=== PATIENT | female | born 1945 | race Asian ===

== ENCOUNTER 2017-10-19 18:41 | Inpatient (IN) | END 2017-10-30 18:25 | disposition home or self-care (01) | DRG 264 ==

== ENCOUNTER 2018-01-21 08:34 | Observation (INO) | END 2018-01-24 21:00 | disposition home or self-care (01) ==

== ENCOUNTER 2018-05-14 13:55 | Emergency (ER) | END 2018-05-15 04:27 | disposition short-term general hospital (02) ==

== ENCOUNTER 2019-02-15 15:29 | Inpatient (IN) | payer BC, OTHER ==
[~2019-02-15] VITALS: Ht 147.3 cm; Wt 51.1 kg
[~2019-02-15 15:29] MED LIST: ALLO300T2 PO; AMLO-147 PO; ATOR40TA68 PO; CHOL200056 PO; CLOP75TA19 PO; LEVO500T10 PO; NOVO7030 SC; OMEG1CAP2 PO; ONDA4TAB13 PO; PANT40TA4 PO; VALS320T2 PO
[2019-02-15] MEDS ORDERED: SOD CHLORIDE 0.9% 500 ML IV ONE (18:00)
[2019-02-15] MEDS ORDERED: NOVO7030 SC (18:02)
[2019-02-15] MEDS ORDERED: ALLO300T2 PO (18:03)
[2019-02-15] MEDS ORDERED: AMLO-147 PO (18:04)
[2019-02-15] MEDS ORDERED: CLOP75TA19 PO (18:05)
[2019-02-15] MEDS ORDERED: VALS320T2 PO (18:05)
[2019-02-15] MEDS ORDERED: ATOR40TA68 PO (18:06)
[2019-02-15] MEDS ORDERED: OMEG1CAP2 PO (18:06)
[2019-02-15] MEDS ORDERED: CHOL200056 PO (18:07)
[2019-02-15] MEDS ORDERED: ONDA4TAB13 PO (18:07)
[2019-02-15] MEDS ORDERED: CLON-379 PO (18:08)
[2019-02-15] MEDS ORDERED: ONDANSETRON 4 MG INJ IV PRN (20:30)
[2019-02-15] MEDS ORDERED: DOCUSATE SODIUM 100 MG CAP PO PRN (20:30)
[2019-02-15] MEDS ORDERED: ACETAMINOPHEN 325 MG TAB PO PRN (20:30)
[2019-02-15] MEDS ORDERED: NACL 0.9% 3 ML SYG IV SCH (20:30)
[2019-02-15] MEDS ORDERED: BISACODYL (EC) 5 MG TAB PO PRN (20:30)
--- NOTE | 2019-02-15 20:30 | HP ---
Date/Time of Note Date/Time of Note DATE: 02/15/19 TIME: 20:30 Assessment/Plan VTE Prophylaxis Pharmacological prophylaxis: heparin Lines/Catheters IV C[facility]ter Type [facility]from [facility] Saline Lock Assessment/Plan Hospital Course This is a 73-year-old female being admitted to the telemetry floor for: 1 generalized tremors/rigors: Etiology is unclear at the current time. Reports similar episodes twice before for which she was treated with antibiotics. At the current time patient is afebrile. Her lactate is within normal values. Nonetheless there is concern for possible underlying infection. She does report a cough and diarrhea. At the current time will obtain blood cultures and stool cultures. We will start her on broad-spectrum antibiotics for suspected underlying infection. We will also obtain an echocardiogram and assess for possible underlying vegetations. Chest x-ray does not show any consolidation or infiltrates. consider EEG and neuro consultation. 2. Near syncope: Patient denies any loss of consciousness, she does report generalized weakness along with the tremors and the shakes. Will check an echocardiogram as well as a carotid Doppler ultrasound. 3. End-stage renal disease: Patient on hemodialysis Wednesday. Will resume patient's home medications. Will consult nephrology Dr. Cardona. Avoid nephrotoxic agents. 4. Diabetes mellitus: Check hemoglobin A1c, insulin sliding scale, will need to confirm patient's home insulin dosage. 5. Hypertension: We will resume patient's home blood pressure medications 6. Hyperlipidemia: We will continue statin will check lipid panel 7. Possible CAD: Continue statin, Plavix 8. DVT GI prophylaxis: Heparin subcu, no GI prophylaxis indicated Further treatment strategy will be implemented as per the clinical course Result Diagram: 02/15/19 1609 02/15/19 1609 Results 24hrs Laboratory Tests Test 02/15/19 16:09 02/15/19 16:14 White Blood Count 12.1 #H Red Blood Count 3.76 L Hemoglobin 10.9 L Hematocrit 32.9 L Mean Corpuscular Volume 87.5 Mean Corpuscular Hemoglobin 29.0 Mean Corpuscular Hemoglobin Concent 33.1 Red Cell Distribution Width 16.9 #H Platelet Count 274 Mean Platelet Volume 10.3 Immature Granulocytes % 0.400 Neutrophils % 81.9 H Lymphocytes % 11.5 L Monocytes % 4.5 Eosinophils % 1.4 Basophils % 0.3 Nucleated Red Blood Cells % 0.0 Immature Granulocytes # 0.050 H Neutrophils # 9.9 H Lymphocytes # 1.4 Monocytes # 0.5 Eosinophils # 0.2 Basophils # 0.0 Nucleated Red Blood Cells # 0.0 Prothrombin Time 11.6 L Prothrombin Time Ratio 0.9 INR International Normalized Ratio 0.84 Sodium Level 135 Potassium Level 4.1 Chloride Level 94 L Carbon Dioxide Level 26 Anion Gap 15 H Blood Urea Nitrogen 40 H Creatinine 3.54 H Est Glomerular Filtrat Rate mL/min Glucose Level 236 H Calcium Level 9.1 Troponin I < 0.012 Bedside Glucose 253 H HPI/ROS Admit Date/Time Admit Date/Time Hx of Present Illness Chief complaint: Tremors, chills, weakness times 2 days This is a 73-year-old female with a past medical history of hypertension, diabetes, end-stage renal disease on Wednesday//Wednesday who presented to the emergency department with symptoms of near syncope. Patient reports that she went to dialysis yesterday. She states that after she went home she felt lightheaded and had generalized weakness and she also started noticing tremors. She states that she has felt the chills but denies any fevers. She had a similar episode occurred to her twice in the past and both times she was treated with antibiotics. She does have an occasional cough. She otherwise denies any sick contacts. She does report that occasionally she has some diarrhea for which she took Imodium for. Allergies: Penicillin, aspirin Medications: See Dec Const: As per HPI Eyes : No pain discharge or redness or change in visual acuity ENT: No pain, sore throat, congestion, congestion, dysphagia or discharge Respiratory: As per HPI Cardiovascular: No chest pain, palpitation, PND, or edema GI : no change in appetite, abdominal pain, nausea, vomiting, diarrhea, constipation, or change in the color his stool Genitourinary: No dysuria, hematuria, flank pain , discharge or CVA tenderness Musculoskeletal: No joint pain, back pain, neck pain, restricted range of motion in neck or joints Skin: No rash, bruising or hives Neuro: As per HPI Endocrine: No polyuria, polydipsia, temperature intolerance Psych: No hallucination, depression, anxiety or suicidal ideation PMH/Family/Social Past Medical History End-stage renal disease on hemodialysis Wednesday, hypertension, diabetes, hyperlipidemia Coded Allergies: Penicillins (Unverified Allergy, Unknown, 02/15/19) aspirin (Unverified Allergy, Unknown, 02/15/19) Past Surgical History Left upper extremity AV fistula, hernia surgery Past Surgical Hx: other Family History Significant Family History: no pertinent family hx Social History Alcohol Use: none Smoking Status: Never smoker Drug Use: none Exam/Review of Systems Vital Signs Vitals Vital Signs Date Temp Pulse Resp B/P (MAP) Pulse Ox O2 O2 Flow FiO2 Time Delivery Rate 02/15/19 73 18 160/88 100 Nasal 2.0 18:00 (112) Cannula 02/15/19 98.1 15:38 Exam Exam General: Patient currently lying in bed she does not appear to be in any acute distress, she does appear to have visible generalized tremors/shakes when she is talking, she reports chills. HEENT: Atraumatic, normocephalic. The pupils are equal, round and reactive. Extraocular motor are intact Neck: Supple with full range of motion. No rigidity or meningismus Chest: Nontender Lungs: Clear to auscultation bilaterally no crackles rales or wheezing, dry cough Heart: Normal S1-S2, Regular rhythm and rate. Abdomen: Soft , nontender, nondistended , bowel sounds are present. No guarding no rebound tenderness , No masses or organomegaly. No costovertebral temporal angle mass Extremities: Normal to inspection, no edema no cyanosis Neurologic: Normal mental status, speech normal, cranial nerves II through XII are intact, motor and sensory are intact, generalized tremors/shakes Additional Comments PROCEDURE: XR Chest. CLINICAL INDICATION: Syncope TECHNIQUE: Single portable view of the chest was obtained COMPARISON: No priors for comparison FINDINGS: The trachea is midline. The cardiac silhouette is a large and pulmonary vascularity are within normal limits. There is atherosclerotic calcification of the aortic knob. There are bilateral chronic lung changes. The lungs are clear. The costophrenic angles are sharp. IMPRESSION: 1. Cardiomegaly and atherosclerotic disease. 2. Bilateral chronic lung changes. No evidence of acute cardiopulmonary disease. RPTAT: AAPP Jasony Lue, Physician Date Time Electronically viewed and signed by Manuel Ramirez, Physician on 02/15/2019 16:38 JL/ CC: ELSY SOUSA MD [id number] MACY COSBY Feb 15, 2019 20:30
--- NOTE | 2019-02-15 20:37 | ERD ---
ER Documentation Chief Complaint Chief Complaint bib ra from medical office for feeling weak, and near syncope HPI This is a 73-year-old female with a past medical history of hypertension, diabetes, end-stage renal disease status post left upper extremity fistula on dialysis Wednesday//Wednesday, last completed dialysis yesterday, who is now presenting with near syncopal symptoms. The patient reports lightheadedness, generalized weakness, tremulousness and feeling generally unwell since her dialysis session yesterday. The patient does not endorse any other alleviating or exacerbating factors. The patient denies feeling sick recently. The patient denies fever or chills. The patient has had no headache or vision changes. The patient does not endorse neck or back pain. The patient has had no chest pain or trouble breathing. The patient denies nausea or vomiting. The patient reports chronic unchanged generalized abdominal pain. The patient denies changes to bowel movements or urination. The patient has had no focal deficits. The patient has had no weakness or numbness or tingling to the face or extremities. ROS All systems reviewed and are negative except as per history of present illness. Medications Home Meds Reported Medications Clonidine Hcl* (Clonidine Hcl*) 0.1 Mg Tab, 0.1 MG PO BID, TAB 02/15/19 Ondansetron Hcl* (Zofran*) 4 Mg Tab, 4 MG PO Q6H PRN for NAUSEA AND OR VOMITING, TAB 02/15/19 Cholecalciferol (Vitamin D3) (Vitamin D-3) 2,000 Unit Tablet, 2000 UNIT PO DAILY, TAB 02/15/19 [place]-3 Acid Ethyl Esters (Lovaza) 1 Gm Capsule, 2 GM PO BID, CAP 02/15/19 Atorvastatin* (Atorvastatin*) 40 Mg Tablet, 40 MG PO QHS, #30 TAB 02/15/19 Valsartan* (Diovan*) 320 Mg Tablet, 320 MG PO DAILY, TAB 02/15/19 Clopidogrel Bisulfate* (Clopidogrel Bisulfate*) 75 Mg Tablet, 75 MG PO DAILY, #30 TAB 02/15/19 Amlodipine Besylate* (Amlodipine Besylate*) 10 Mg Tablet, 10 MG PO DAILY, #30 TAB 02/15/19 Allopurinol* (Allopurinol*) 300 Mg Tablet, 300 MG PO DAILY, TAB 02/15/19 Insulin Isophan/Regular (Humulin 70/30) 100 Units/Ml Susp, 1 UNIT SC AC BREAKFAST DINNER, EA 40 UNITS-AM, 20 UNITS-QHS 02/15/19 Discontinued Reported Medications Pantoprazole* (Pantoprazole*) 40 Mg Tablet.dr, 40 MG PO AC BREAKFAST, TAB 05/14/18 Atorvastatin* (Atorvastatin*) 40 Mg Tablet, 40 MG PO QHS, #30 TAB 05/14/18 Clopidogrel Bisulfate* (Clopidogrel Bisulfate*) 75 Mg Tablet, 75 MG PO DAILY, #30 TAB 05/14/18 Allopurinol* (Allopurinol*) 300 Mg Tablet, 300 MG PO DAILY, TAB 05/14/18 Valsartan* (Diovan*) 320 Mg Tablet, 320 MG PO DAILY, TAB 05/14/18 Levofloxacin* (Levofloxacin*) 500 Mg Tablet, 500 MG PO DAILY, TAB FOR 10 DAYS, START DATE 05/12/18 05/14/18 [place]-3 Acid Ethyl Esters (Lovaza) 1 Gm Capsule, 2 GM PO BID, CAP 05/14/18 Cholecalciferol (Vitamin D3) (Vitamin D-3) 2,000 Unit Tablet, 2000 UNIT PO DAILY, TAB 05/14/18 Insulin Isophan/Regular (Humulin 70/30) 100 Units/Ml Susp, 40 UNIT SC AC BREAKFAST BEDTIME, EA 05/14/18 Ondansetron Hcl* (Zofran*) 4 Mg Tab, 4 MG PO Q12H PRN for NAUSEA AND OR VOMITING, TAB 05/14/18 Amlodipine Besylate* (Amlodipine Besylate*) 10 Mg Tablet, 10 MG PO DAILY, #30 TAB 05/14/18 Allergies Allergies: Coded Allergies: Penicillins (Unverified Allergy, Unknown, 02/15/19) aspirin (Unverified Allergy, Unknown, 02/15/19) PMhx/Soc History of Surgery: Yes (total hysteractomy, c section x2, hernia repainr) Anesthesia Reaction: No Hx Neurological Disorder: No Hx Respiratory Disorders: Yes (SOB) Hx Cardiac Disorders: No Hx Psychiatric Problems: No Hx Miscellaneous Medical Probl: Yes (ESRD on hemodialysis, hypertension, diabetes) Hx Alcohol Use: No Hx Substance Use: No Hx Tobacco Use: No Smoking Status: Never smoker Physical Exam Vitals Vital Signs Date Temp Pulse Resp B/P (MAP) Pulse Ox O2 O2 Flow FiO2 Time Delivery Rate 02/15/19 73 18 160/88 100 Nasal 2.0 18:00 (112) Cannula 02/15/19 76 22 150/54 100 Nasal 3.0 17:00 (86) Cannula 02/15/19 75 19 161/101 100 Non 16:44 (121) Rebreather 02/15/19 98.1 80 19 156/65 98 15:38 (95) 02/15/19 98.1 89 19 150/69 98 Nasal 2.0 15:38 (96) Cannula Physical Exam Const: No apparent distress, well-developed, well-nourished Head: Normocephalic, Atraumatic Eyes: Normal Conjunctiva. Extraocular movements intact. Pupils equal, round and reactive to light ENT: Normal External Ears, Nose and Mouth. Neck: Full range of motion. No meningismus. Resp: Clear to auscultation bilaterally, No wheezes, rales or rhonchi Cardio: Regular rate and rhythm. No murmurs, rubs or gallops Abd: Soft, non tender, non distended. Normal bowel sounds Skin: No petechiae or rashes Back: No midline tenderness. No CVA tenderness Ext: No cyanosis, or edema. Left upper extremity AV fistula with palpable pulsatile thrill. Neur: Awake and alert, oriented 4. Cranial nerves intact. No facial droop. Normal strength, sensation and coordination. Bilateral essential tremor and occasional myoclonic jerking. Psych: Normal Mood and Affect Result Diagram: 02/15/19 1609 02/15/19 1609 Results 24 hrs Laboratory Tests Test 02/15/19 16:09 02/15/19 16:14 White Blood Count 12.1 10^3/ul Red Blood Count 3.76 10^6/ul Hemoglobin 10.9 g/dl Hematocrit 32.9 % Mean Corpuscular Volume 87.5 fl Mean Corpuscular Hemoglobin 29.0 pg Mean Corpuscular Hemoglobin Concent 33.1 g/dl Red Cell Distribution Width 16.9 % Platelet Count 274 10^3/UL Mean Platelet Volume 10.3 fl Immature Granulocytes % 0.400 % Neutrophils % 81.9 % Lymphocytes % 11.5 % Monocytes % 4.5 % Eosinophils % 1.4 % Basophils % 0.3 % Nucleated Red Blood Cells % 0.0 /100WBC Immature Granulocytes # 0.050 10^3/ul Neutrophils # 9.9 10^3/ul Lymphocytes # 1.4 10^3/ul Monocytes # 0.5 10^3/ul Eosinophils # 0.2 10^3/ul Basophils # 0.0 10^3/ul Nucleated Red Blood Cells # 0.0 10^3/ul Prothrombin Time 11.6 Sec Prothrombin Time Ratio 0.9 INR International Normalized Ratio 0.84 Sodium Level 135 mmol/L Potassium Level 4.1 mmol/L Chloride Level 94 mmol/L Carbon Dioxide Level 26 mmol/L Anion Gap 15 Blood Urea Nitrogen 40 mg/dl Creatinine 3.54 mg/dl Est Glomerular Filtrat Rate mL/min mL/min Glucose Level 236 mg/dl Calcium Level 9.1 mg/dl Troponin I < 0.012 ng/ml Bedside Glucose 253 mg/dL Current Medications Medications Dose Sig/Carmen Start Time Status Last (Trade) Ordered Route PRN Stop Time Admin Dose Reason Admin Sodium 500 ml @ Q1H ONCE 02/15/19 DC 02/15/19 Chloride 500 mls/hr IV 18:00 17:47 02/15/19 18:59 Procedures/MDM MDM The patient's presentation warrants further investigation. Previous medical records, if available, were reviewed. LABS The patient's laboratory testing was obtained and reviewed. No emergent treatment was required unless described below. CBC: Mild leukocytosis. Normocytic anemia, not emergent. Normal platelet count. Chemistry: Elevated BUN and creatinine in line with her known end-stage renal disease. No electrolyte emergencies. Hyperglycemia without DKA. Mildly elevated anion gap but no acidemia. Lactate: Pending Troponin: No E/o acute ischemia Urine: Patient unable to provide TFTs: Pending LFTs: Pending NH4: Pending EKG EKG read by me: Rate/Rhythm: Regular rate and rhythm at a rate of 73 bpm Intervals: Normal [place]: Normal Impression: No evidence of acute ischemia or arrhythmia IMAGING Imaging and Radiology interpretation reviewed. CXR FINDINGS: The trachea is midline. The cardiac silhouette is a large and pulmonary vascularity are within normal limits. There is atherosclerotic calcification of the aortic knob. There are bilateral chronic lung changes. The lungs are clear. The costophrenic angles are sharp. IMPRESSION: 1. Cardiomegaly and atherosclerotic disease. 2. Bilateral chronic lung changes. No evidence of acute cardiopulmonary disease. Electronically viewed and signed by Manuel Ramirez Physician on 02/15/2019 16:38 TREATMENT/DISPOSITION The patient presents with symptoms concerning for presyncope. The patient was evaluated fully. Multiple etiologies have been considered. The patient's vital signs are normal, but she does have a leukocytosis. She does not meet criteria for systemic inflammatory response syndrome, and I do not believe the patient is septic. That said, the patient reports that she has had these symptoms before and was treated with antibiotics. Given her history of end-stage renal disease requiring dialysis 3 times a week, bacteremia certainly a possibility. Blood cultures were sent off. I did not immediately initiate antibiotics in the emergency department, but this can be assessed further in the hospital. The patient's tremors could also be related to electrolyte abnormalities as patients with end-stage renal disease are prone to electrolyte abnormalities. I do not see any emergent electrolyte abnormalities today. Magnesium and phosphorus levels were sent off for further assessment. LFTs and ammonia was also sent off to evaluate for the possibility of a hepatic pathology. The patient is not clinically orthostatic. The patient is not dizzy. I have decreased suspicion for vertigo. The patient has no signs of emergent or symptomatic anemia. The patient does not have any emergent electrolyte or metabolic emergencies. I have decrease suspicion for a thyroid disorder, but thyroid function testing was ordered. The patient's EKG and troponin are reassuring. I have low suspicion for acute coronary syndrome. I do not see evidence of any emergent cardiac arrhythmia, which includes but is not limited to heart block, Brugada syndrome or WPW. The patient has no heart murmurs or rales. There is no evidence of cardiomegaly on exam or chest xray. I have low suspicion for hypertrophic cardiomyopathy. I do not see evidence of CHF. The patient does not endorse any chest or pleuritic pain. The history is negative for bleeding or clotting disorders. The patient has not been involved in any recent prolonged trips or surgeries or hospitalizations. The patient has no calf tenderness or swelling. I have decreased suspicion for PE as the etiology of symptoms. The patient does endorse tremulousness, but she has no focal deficits. The neurologic exam is reassuring. I have decreased suspicion for cerebral ischemia. There was no trauma or injury. There is no personal or family history of cerebral aneurysm. I have decreased suspicion for SAH or other ICH. I have low suspicion for temporal arteritis, cavernous venous thrombosis, subdural hematoma, epidural hematoma, meningitis. The patient was treated with 500 mL of normal saline. ADMISSION I discussed the case with Dr. Han, a physician who is part of her insurance organization. He agreed that the patient required admission for further assessment. They do not have a facility within 30 miles that we are able to transfer to, so he authorized admission here. At this time, I feel that the patient requires admission for further evaluation and management. The patient will be admitted to [Panel] in accordance with the patient's insurance. The patient was accepted by Dr. Sal at 8:06 PM on February 15, 2019. Disclaimer: Inadvertent spelling and grammatical errors are likely due to EHR/dictation software use and do not reflect on the overall quality of patient care. Note that the electronic time recorded on this note does not necessarily reflect the actual time of the patient encounter. Departure Diagnosis: Primary Impression: Near syncope Additional Impressions: Tremulousness Lightheadedness Leukocytosis Leukocytosis type: unspecified Qualified Codes: D72.829 - Elevated white blood cell count, unspecified Normocytic anemia End stage renal disease on dialysis Hyperglycemia Condition: Serious ELSY SOUSA MD Feb 15, 2019 20:24
[2019-02-15] MEDS ORDERED: ONDANSETRON 4 MG TAB PO PRN (21:30)
[2019-02-15] MEDS ORDERED: hydrALAzine 20 MG INJ IV PRN (21:30)
[2019-02-15 21:50] VITALS: PULSE 74
[2019-02-15 22:00] VITALS: BP 196/84; PULSE 77; RESP 18
[2019-02-15 22:13] VITALS: Ht 147.3 cm; Wt 51.1 kg
[2019-02-15] MEDS: HEPARIN 5,000 UNIT/1 ML VIAL SC SCH (22:26)
[2019-02-15] MEDS ORDERED: traZODone 50 MG TAB PO ONE (22:30)
[2019-02-15] MEDS ORDERED: DEXTROSE 50% 50 ML SYRINGE IV PRN ×2 (23:45)
[2019-02-15] MEDS ORDERED: GLUCOSE GEL 15 GRAM TUBE PO PRN ×2 (23:45)
[2019-02-15] MEDS ORDERED: GLUCAGON 1 MG INJ IM PRN (23:45)
[2019-02-15] MEDS ORDERED: GLUCOSE GEL 15 GRAM TUBE BUCCAL PRN (23:45)
[2019-02-15] MEDS: AMLODIPINE 10 MG TAB PO SCH (23:54)
[2019-02-16] VITALS (13 sets, daily range): BP systolic 146–164; BP diastolic 58–87; PULSE 63–95; RESP 17–19
[2019-02-16] MEDS: ACCUCHECK AT 2AM (Patients on SS coverage) XX SCH (02:00)
[2019-02-16] MEDS ORDERED: VANCOMYCIN IV PER PHARMACY XX SCH (05:00)
[2019-02-16] MEDS: CIPROFLOXACIN 400MG/D5W 200 ML IVPB SCH (05:57)
[2019-02-16] MEDS: HEPARIN 5,000 UNIT/1 ML VIAL SC SCH ×3 (06:09→21:47)
[2019-02-16] MEDS: metroNIDAZOLE 500 MG/NS (PMX) 100 ML IVPB SCH ×3 (06:58→21:45)
[2019-02-16] MEDS ORDERED: VANCOMYCIN 1 GM 250 ML IVPB ONE (07:00)
[2019-02-16] MEDS ORDERED: INSULIN ISOPHAN SC SCH (07:00)
[2019-02-16] MEDS ORDERED: INSULIN ASPART [NOVOLOG] 3 ML PEN SC SCH (08:00)
[2019-02-16] MEDS: AMLODIPINE 10 MG TAB PO SCH (08:17)
[2019-02-16] MEDS: CLOPIDOGREL 75 MG TAB PO SCH (08:18)
[2019-02-16] MEDS ORDERED: NON-FORMULARY/PATIENT OWN MED (Omega-3 Acid Ethyl Esters (Lovaza) 2 GM) PO SCH (09:00)
[2019-02-16] MEDS ORDERED: NON-FORMULARY/PATIENT OWN MED (Valsartan* (Diovan*) 320 MG) PO SCH (09:00)
[2019-02-16] MEDS: CHOLECALCIFEROL 2,000 UNIT CAP PO SCH ×2 (09:00→18:18)
[2019-02-16] MEDS: ALLOPURINOL 300 MG TAB PO SCH ×2 (09:00→18:18)
[2019-02-16] MEDS: FISH OIL 1,000 MG CAP PO SCH ×2 (09:00→21:43)
[2019-02-16] MEDS ORDERED: AMLODIPINE 10 MG TAB PO SCH (09:00)
[2019-02-16] MEDS ORDERED: NON-FORMULARY/PATIENT OWN MED (Cholecalciferol (Vitamin D3) (Vitamin D-3) 2,000 UNIT) PO SCH (09:00)
[2019-02-16] MEDS ORDERED: PIPER-TAZO 2.25 GM (PMX) 50 ML IVPB SCH (09:00)
[2019-02-16] MEDS: LOSARTAN 50 MG TAB PO SCH (12:13)
[2019-02-16] MEDS: INSULIN ASPART [NOVOLOG] 3 ML PEN SC SCH ×3 (12:22→21:00)
--- NOTE | 2019-02-16 13:16 | PN ---
Date/Time of Note Date/Time of Note DATE: 02/16/19 TIME: 13:00 Assessment/Plan VTE Prophylaxis Risk score (from Ns)>0 risk: 9 SCD applied (from Ns): Yes Pharmacological prophylaxis: heparin Lines/Catheters IV Catheter Type (from Nrsg): Saline Lock Urinary Cath still in place: No Assessment/Plan Assessment/Plan 1. Intermittent whole body jerking movement, not while she is asleep, likely psychogenic, try one dose Zyprexa, do EEG 2. Near syncope, no loss of consciousness 3. End-stage renal disease: HD on Wednesday, HD today. 4. Diabetes mellitus: Check hemoglobin A1c 8.4, insulin sliding scale 5. Hypertension, stable 6. Hyperlipidemia: We will continue statin 7. Possible CAD: Continue statin, Plavix 8. DVT GI prophylaxis: Heparin subcu, no GI prophylaxis indicated Result Diagram: 02/16/19 0534 02/16/19 0534 Results 24hrs Laboratory Tests Test 02/15/19 16:05 02/15/19 16:09 02/15/19 16:14 02/15/19 20:39 Total Bilirubin 0.4 Direct Bilirubin 0.00 Indirect Bilirubin 0.4 Aspartate Amino 28 Transf (AST/SGOT) Alanine 8 L Aminotransferase (AL T/SGPT) Alkaline Phosphatase 135 H Total Protein 8.1 Albumin 4.1 Thyroid Stimulating 1.830 Hormone (TSH) Free Thyroxine 1.95 White Blood Count 12.1 #H Red Blood Count 3.76 L Hemoglobin 10.9 L Hematocrit 32.9 L Mean Corpuscular 87.5 Volume Mean Corpuscular 29.0 Hemoglobin Mean Corpuscular 33.1 Hemoglobin Concent Red Cell 16.9 #H Distribution Width Platelet Count 274 Mean Platelet Volume 10.3 Immature 0.400 Granulocytes % Neutrophils % 81.9 H Lymphocytes % 11.5 L Monocytes % 4.5 Eosinophils % 1.4 Basophils % 0.3 Nucleated Red Blood 0.0 Cells % Immature 0.050 H Granulocytes # Neutrophils # 9.9 H Lymphocytes # 1.4 Monocytes # 0.5 Eosinophils # 0.2 Basophils # 0.0 Nucleated Red Blood 0.0 Cells # Prothrombin Time 11.6 L Prothrombin Time 0.9 Ratio INR International 0.84 Normalized Ratio Sodium Level 135 Potassium Level 4.1 Chloride Level 94 L Carbon Dioxide Level 26 Anion Gap 15 H Blood Urea Nitrogen 40 H Creatinine 3.54 H Est Glomerular Filtrat Rate mL/min Glucose Level 236 H Calcium Level 9.1 Phosphorus Level 4.0 Magnesium Level 2.4 Troponin I < 0.012 Bedside Glucose 253 H Ammonia < 9 L Test 02/15/19 20:42 02/15/19 22:50 02/15/19 23:16 02/16/19 05:34 POC Venous Lactate 0.8 Lactic Acid Level 0.7 Bedside Glucose 174 White Blood Count 10.0 Red Blood Count 3.45 L Hemoglobin 9.9 L Hematocrit 30.6 L Mean Corpuscular 88.7 Volume Mean Corpuscular 28.7 L Hemoglobin Mean Corpuscular 32.4 Hemoglobin Concent Red Cell 16.9 H Distribution Width Platelet Count 264 Mean Platelet Volume 10.7 H Immature 0.200 Granulocytes % Neutrophils % 72.6 Lymphocytes % 16.5 Monocytes % 7.1 Eosinophils % 3.0 Basophils % 0.6 Nucleated Red Blood 0.0 Cells % Immature 0.020 Granulocytes # Neutrophils # 7.2 Lymphocytes # 1.7 Monocytes # 0.7 Eosinophils # 0.3 Basophils # 0.1 Nucleated Red Blood 0.0 Cells # Sodium Level 138 Potassium Level 3.6 Chloride Level 100 Carbon Dioxide Level 28 Anion Gap 10 # Blood Urea Nitrogen 42 H Creatinine 4.08 H Est Glomerular Filtrat Rate mL/min Glucose Level 156 Hemoglobin A1c 8.4 H Calcium Level 8.6 Total Bilirubin 0.5 Direct Bilirubin 0.00 Indirect Bilirubin 0.5 Aspartate Amino 18 Transf (AST/SGOT) Alanine 18 Aminotransferase (AL T/SGPT) Alkaline Phosphatase 98 Total Protein 6.8 # Albumin 3.5 Globulin 3.30 H Albumin/Globulin 1.06 Ratio Test 02/16/19 07:33 02/16/19 12:17 Bedside Glucose 184 207 Subjective 24 Hr Interval Summary Free Text/Dictation intermittent jerking movement while awake Exam/Review of Systems Exam Vitals Vital Signs Date Temp Pulse Resp B/P (MAP) Pulse Ox O2 O2 Flow FiO2 Time Delivery Rate 02/16/19 63 12:15 02/16/19 97.7 19 146/65 100 Nasal 2.0 11:31 (92) Cannula Intake and Output 02/15/19 02/15/19 02/16/19 1515:00 23:00 07:00 IntakeIntake Total 200 ml BalanceBalance 200 ml Constitutional: alert, oriented, well developed Psych: no complaints, nl mood/affect Head: normocephalic, atraumatic Eyes: nl conjunctiva, EOMI, nl lids ENMT: nl external ears & nose, nl lips & teeth, nl nasal mucosa & septum Neck: supple, non-tender Respiratory: clear to auscultation, normal air movement; No congested cough, No crackles/rales, No diminished breath sounds, No interc ostal retraction, No labored breathing, No respirations, No tactile fremitus, No wheezing, No other Cardiovascular: regular rate and rhythm, nl pulses; No bruits, No diastolic murmur, No edema, No gallop, No irregular rhythm, No jugular venous distention (JVD), No murmurs/extra sounds, No rub, No systolic murmur, No S3, No S4, No other Gastrointestinal: soft, nl liver, spleen, non-tender; No ascites, No bowel sounds, No distended, No firm, No hepatomegaly, No mass, No rebound or guarding, No splenomegaly, No surgical scars, No tender, No other Musculoskeletal: nl extremities to inspection Extremities: normal pulses; No calf tenderness, No cyanosis, No clubbing, No edema, No pitting pedal edema, No palpable cord, No tenderness, No other Neurological: CARPET WINDER II-XII intact, nl mental status, nl speech, nl strength Results Results 24hrs Laboratory Tests Test 02/15/19 16:05 02/15/19 16:09 02/15/19 16:14 02/15/19 20:39 Total Bilirubin 0.4 Direct Bilirubin 0.00 Indirect Bilirubin 0.4 Aspartate Amino 28 Transf (AST/SGOT) Alanine 8 L Aminotransferase (AL T/SGPT) Alkaline Phosphatase 135 H Total Protein 8.1 Albumin 4.1 Thyroid Stimulating 1.830 Hormone (TSH) Free Thyroxine 1.95 White Blood Count 12.1 #H Red Blood Count 3.76 L Hemoglobin 10.9 L Hematocrit 32.9 L Mean Corpuscular 87.5 Volume Mean Corpuscular 29.0 Hemoglobin Mean Corpuscular 33.1 Hemoglobin Concent Red Cell 16.9 #H Distribution Width Platelet Count 274 Mean Platelet Volume 10.3 Immature 0.400 Granulocytes % Neutrophils % 81.9 H Lymphocytes % 11.5 L Monocytes % 4.5 Eosinophils % 1.4 Basophils % 0.3 Nucleated Red Blood 0.0 Cells % Immature 0.050 H Granulocytes # Neutrophils # 9.9 H Lymphocytes # 1.4 Monocytes # 0.5 Eosinophils # 0.2 Basophils # 0.0 Nucleated Red Blood 0.0 Cells # Prothrombin Time 11.6 L Prothrombin Time 0.9 Ratio INR International 0.84 Normalized Ratio Sodium Level 135 Potassium Level 4.1 Chloride Level 94 L Carbon Dioxide Level 26 Anion Gap 15 H Blood Urea Nitrogen 40 H Creatinine 3.54 H Est Glomerular Filtrat Rate mL/min Glucose Level 236 H Calcium Level 9.1 Phosphorus Level 4.0 Magnesium Level 2.4 Troponin I < 0.012 Bedside Glucose 253 H Ammonia < 9 L Test 02/15/19 20:42 02/15/19 22:50 02/15/19 23:16 02/16/19 05:34 POC Venous Lactate 0.8 Lactic Acid Level 0.7 Bedside Glucose 174 White Blood Count 10.0 Red Blood Count 3.45 L Hemoglobin 9.9 L Hematocrit 30.6 L Mean Corpuscular 88.7 Volume Mean Corpuscular 28.7 L Hemoglobin Mean Corpuscular 32.4 Hemoglobin Concent Red Cell 16.9 H Distribution Width Platelet Count 264 Mean Platelet Volume 10.7 H Immature 0.200 Granulocytes % Neutrophils % 72.6 Lymphocytes % 16.5 Monocytes % 7.1 Eosinophils % 3.0 Basophils % 0.6 Nucleated Red Blood 0.0 Cells % Immature 0.020 Granulocytes # Neutrophils # 7.2 Lymphocytes # 1.7 Monocytes # 0.7 Eosinophils # 0.3 Basophils # 0.1 Nucleated Red Blood 0.0 Cells # Sodium Level 138 Potassium Level 3.6 Chloride Level 100 Carbon Dioxide Level 28 Anion Gap 10 # Blood Urea Nitrogen 42 H Creatinine 4.08 H Est Glomerular Filtrat Rate mL/min Glucose Level 156 Hemoglobin A1c 8.4 H Calcium Level 8.6 Total Bilirubin 0.5 Direct Bilirubin 0.00 Indirect Bilirubin 0.5 Aspartate Amino 18 Transf (AST/SGOT) Alanine 18 Aminotransferase (AL T/SGPT) Alkaline Phosphatase 98 Total Protein 6.8 # Albumin 3.5 Globulin 3.30 H Albumin/Globulin 1.06 Ratio Test 02/16/19 07:33 02/16/19 12:17 Bedside Glucose 184 207 Medications Medication Current Medications IV Flush (NS 3 ml) 3 ml PER PROTOCOL IV ; Start 02/15/19 at 20:30 Ondansetron HCl (Zofran Inj) 4 mg Q6H PRN IV NAUSEA/VOMITING; Start 02/15/19 at 20:30 Acetaminophen (Tylenol Tab) 650 mg Q6H PRN PO .PAIN 1-3 OR TEMP; Start 02/15/19 at 20:30 Docusate Sodium (Colace) 100 mg Q12H PRN PO .CONSTIPATION; Start 02/15/19 at 20:30 Bisacodyl (Dulcolax) 5 mg DAILY PRN PO .CONSTIPATION; Start 02/15/19 at 20:30 Heparin Sodium (Porcine) (Heparin (5000 Units/1ml)) 5,000 unit Q8 SC Last administered on 02/16/19at 06:09; Admin Dose 5,000 UNIT; Start 02/15/19 at 22:00 Allopurinol (Zyloprim) 300 mg DAILY PO ; Start 02/16/19 at 09:00 Atorvastatin Calcium (Lipitor) 40 mg QHS PO ; Start 02/16/19 at 21:00 Clonidine (Catapres) 0.1 mg BID PO Last administered on 02/16/19at 08:18; Admin Dose 0.1 MG; Start 02/16/19 at 09:00 Clopidogrel Bisulfate (plaVIX) 75 mg DAILY PO Last administered on 02/16/19at 08:18; Admin Dose 75 MG; Start 02/16/19 at 09:00 Ondansetron HCl (Zofran Tab) 4 mg Q6H PRN PO NAUSEA AND/OR VOMITING; Start 02/15/19 at 21:30 Hydralazine HCl (Apresoline) 10 mg Q6H PRN IV ELEVATED BLOOD PRESSURE Last administered on 02/15/19at 22:21; Admin Dose 10 MG; Start 02/15/19 at 21:30 Fish Oil (Fish Oil) 2,000 mg BID PO ; Start 02/16/19 at 09:00 Cholecalciferol (Vitamin D) 2,000 unit DAILY PO ; Start 02/16/19 at 09:00 Losartan Potassium (Cozaar) 100 mg DAILY PO Last administered on 02/16/19at 12:13; Admin Dose 100 MG; Start 02/16/19 at 11:30 Amlodipine Besylate (Norvasc) 10 mg DAILY PO Last administered on 02/16/19at 08:17; Admin Dose 10 MG; Start 02/15/19 at 23:30 Miscellaneous Information 1 ea NOTE XX ; Start 02/15/19 at 23:45 Glucose (Glutose) 15 gm Q15M PRN PO DECREASED GLUCOSE; Start 02/15/19 at 23:45 Glucose (Glutose) 22.5 gm Q15M PRN PO DECREASED GLUCOSE; Start 02/15/19 at 23:45 Dextrose (D50w Syringe) 25 ml Q15M PRN IV DECREASED GLUCOSE; Start 02/15/19 at 23:45 Dextrose (D50w Syringe) 50 ml Q15M PRN IV DECREASED GLUCOSE; Start 02/15/19 at 23:45 Glucagon (Glucagen) 1 mg Q15M PRN IM DECREASED GLUCOSE; Start 02/15/19 at 23:45 Glucose (Glutose) 15 gm Q15M PRN BUCCAL DECREASED GLUCOSE; Start 02/15/19 at 23:45 Diagnostic Test (Pha) (Accu-Chek) 1 ea 02 XX ; Start 02/16/19 at 02:00 Vancomycin HCl (Vanco Iv Per Pharmacy) VANCOMYCIN PER PHARMACY PER PROTOCOL XX ; Start 02/16/19 at 05:00 Ciprofloxacin/ Dextrose 200 ml @ 200 mls/hr Q24H IVPB Last administered on 02/16/19at 05:57; Admin Dose 200 MLS/HR; Start 02/16/19 at 05:00 Metronidazole 100 ml @ 100 mls/hr Q8 IVPB Last administered on 02/16/19at 06:58; Admin Dose 100 MLS/HR; Start 02/16/19 at 06:00 Insulin Aspart (Novolog Insulin Pen) NOVOLOG *MILD* ALGORITHM Q4 SC Last administered on 02/16/19at 12:22; Admin Dose 2 UNIT; Start 02/16/19 at 13:00 CARLOS FLEMING MD Feb 16, 2019 13:10
[2019-02-16] MEDS ORDERED: OLANZAPINE 10 MG VIAL IM ONE (13:30)
--- NOTE | 2019-02-16 15:05 | CONS ---
Assessment/Plan Assessment/Plan Hospital Course 73 F c/ ESRD on HD, and other comorbidities, who presents for evaluation of episodic shaking w/ dizziness...for which neurology is consulted.. On neurologic examination, she had a stereotyped episode, which appeared to be nonphysiologic.. Seizure is, though, not entirely excluded.. Thyroid studies are wnl P: Head CT for further characterization EEG to evaluate for epileptiform activity Continued medical management and supportive care per primary Will follow clinically Consultation Date/Type/Reason Admit Date/Time Type of Consult Neurology Reason for Consultation tremors, generalized weakness Requesting Provider: CARLOS FLEMING MD Date/Time of Note DATE: 02/16/19 TIME: 14:57 Hx of Present Illness 73 yo F with hx of ESRD on HD, HTN, HLD, and other comorbidities who presented to the ED with c/o generalized weakness and tremors. History was obtained from chart review, as the pt was a limited historian. It is additionally elsewhere noted: Hx of Present Illness Chief complaint: Tremors, chills, weakness times 2 days This is a 73-year-old female with a past medical history of hypertension, diabetes, end-stage renal disease on Wednesday//Wednesday who presented to the emergency department with symptoms of near syncope. Patient reports that she went to dialysis yesterday. She states that after she went home she felt lightheaded and had generalized weakness and she also started noticing tremors. She states that she has felt the chills but denies any fevers. She had a similar episode occurred to her twice in the past and both times she was treated with antibiotics. She does have an occasional cough. She otherwise denies any sick contacts. She does report that occasionally she has some diarrhea for which she took Imodium for. limited d/t ams Exam/Review of Systems Exam Vitals Vital Signs Date Temp Pulse Resp B/P (MAP) Pulse Ox O2 O2 Flow FiO2 Time Delivery Rate 02/16/19 63 12:15 02/16/19 97.7 19 146/65 100 Nasal 2.0 11:31 (92) Cannula Intake and Output 02/15/19 02/15/19 02/16/19 1515:00 23:00 07:00 IntakeIntake Total 200 ml BalanceBalance 200 ml Exam PE: Gen Appearance: No Apparent Distress HEENT: Normocephalic Cardiovascular: Regular rate Abdomen: Soft Extremities: Dry NE: The patient was recently sedated and sparsely verbal; grossly oriented. Speech was hypophonic. Able to follow simple axial and appendicular commands. Cranial nerve examination was limited by mental status. Pupils were equal and reactive to light. There was no afferent pupillary defect. Funduscopic examination was limited. Face was grossly symmetric, w/ present corneal and cough reflexes. Tone was normal. Muscle bulk was normal. The pt had generalized, full body shaking with associated forelimb tremors following the episode. The patient was subsequently able to move her extremities spontaneously, and to command. Coordination and gait testing was limited by mental status. Arm and leg reflexes were 2+ and symmetric. Logan's sign was absent. Plantar responses were flexor. Results Result Diagram: 02/16/19 0534 02/16/19 0534 Results 24hrs Laboratory Tests Test 02/15/19 16:05 02/15/19 16:09 02/15/19 16:14 02/15/19 20:39 Total Bilirubin 0.4 Direct Bilirubin 0.00 Indirect Bilirubin 0.4 Aspartate Amino 28 Transf (AST/SGOT) Alanine 8 L Aminotransferase (AL T/SGPT) Alkaline Phosphatase 135 H Total Protein 8.1 Albumin 4.1 Thyroid Stimulating 1.830 Hormone (TSH) Free Thyroxine 1.95 White Blood Count 12.1 #H Red Blood Count 3.76 L Hemoglobin 10.9 L Hematocrit 32.9 L Mean Corpuscular 87.5 Volume Mean Corpuscular 29.0 Hemoglobin Mean Corpuscular 33.1 Hemoglobin Concent Red Cell 16.9 #H Distribution Width Platelet Count 274 Mean Platelet Volume 10.3 Immature 0.400 Granulocytes % Neutrophils % 81.9 H Lymphocytes % 11.5 L Monocytes % 4.5 Eosinophils % 1.4 Basophils % 0.3 Nucleated Red Blood 0.0 Cells % Immature 0.050 H Granulocytes # Neutrophils # 9.9 H Lymphocytes # 1.4 Monocytes # 0.5 Eosinophils # 0.2 Basophils # 0.0 Nucleated Red Blood 0.0 Cells # Prothrombin Time 11.6 L Prothrombin Time 0.9 Ratio INR International 0.84 Normalized Ratio Sodium Level 135 Potassium Level 4.1 Chloride Level 94 L Carbon Dioxide Level 26 Anion Gap 15 H Blood Urea Nitrogen 40 H Creatinine 3.54 H Est Glomerular Filtrat Rate mL/min Glucose Level 236 H Calcium Level 9.1 Phosphorus Level 4.0 Magnesium Level 2.4 Troponin I < 0.012 Bedside Glucose 253 H Ammonia < 9 L Test 02/15/19 20:42 02/15/19 22:50 02/15/19 23:16 02/16/19 05:34 POC Venous Lactate 0.8 Lactic Acid Level 0.7 Bedside Glucose 174 White Blood Count 10.0 Red Blood Count 3.45 L Hemoglobin 9.9 L Hematocrit 30.6 L Mean Corpuscular 88.7 Volume Mean Corpuscular 28.7 L Hemoglobin Mean Corpuscular 32.4 Hemoglobin Concent Red Cell 16.9 H Distribution Width Platelet Count 264 Mean Platelet Volume 10.7 H Immature 0.200 Granulocytes % Neutrophils % 72.6 Lymphocytes % 16.5 Monocytes % 7.1 Eosinophils % 3.0 Basophils % 0.6 Nucleated Red Blood 0.0 Cells % Immature 0.020 Granulocytes # Neutrophils # 7.2 Lymphocytes # 1.7 Monocytes # 0.7 Eosinophils # 0.3 Basophils # 0.1 Nucleated Red Blood 0.0 Cells # Sodium Level 138 Potassium Level 3.6 Chloride Level 100 Carbon Dioxide Level 28 Anion Gap 10 # Blood Urea Nitrogen 42 H Creatinine 4.08 H Est Glomerular Filtrat Rate mL/min Glucose Level 156 Hemoglobin A1c 8.4 H Calcium Level 8.6 Total Bilirubin 0.5 Direct Bilirubin 0.00 Indirect Bilirubin 0.5 Aspartate Amino 18 Transf (AST/SGOT) Alanine 18 Aminotransferase (AL T/SGPT) Alkaline Phosphatase 98 Total Protein 6.8 # Albumin 3.5 Globulin 3.30 H Albumin/Globulin 1.06 Ratio Test 02/16/19 07:33 02/16/19 12:17 Bedside Glucose 184 207 Medications Medication Current Medications IV Flush (NS 3 ml) 3 ml PER PROTOCOL IV ; Start 02/15/19 at 20:30 Ondansetron HCl (Zofran Inj) 4 mg Q6H PRN IV NAUSEA/VOMITING; Start 02/15/19 at 20:30 Acetaminophen (Tylenol Tab) 650 mg Q6H PRN PO .PAIN 1-3 OR TEMP; Start 02/15/19 at 20:30 Docusate Sodium (Colace) 100 mg Q12H PRN PO .CONSTIPATION; Start 02/15/19 at 20:30 Bisacodyl (Dulcolax) 5 mg DAILY PRN PO .CONSTIPATION; Start 02/15/19 at 20:30 Heparin Sodium (Porcine) (Heparin (5000 Units/1ml)) 5,000 unit Q8 SC Last administered on 02/16/19at 13:30; Admin Dose 5,000 UNIT; Start 02/15/19 at 22:00 Allopurinol (Zyloprim) 300 mg DAILY PO ; Start 02/16/19 at 09:00 Atorvastatin Calcium (Lipitor) 40 mg QHS PO ; Start 02/16/19 at 21:00 Clonidine (Catapres) 0.1 mg BID PO Last administered on 02/16/19at 08:18; Admin Dose 0.1 MG; Start 02/16/19 at 09:00 Clopidogrel Bisulfate (plaVIX) 75 mg DAILY PO Last administered on 02/16/19at 08:18; Admin Dose 75 MG; Start 02/16/19 at 09:00 Ondansetron HCl (Zofran Tab) 4 mg Q6H PRN PO NAUSEA AND/OR VOMITING; Start 02/15/19 at 21:30 Hydralazine HCl (Apresoline) 10 mg Q6H PRN IV ELEVATED BLOOD PRESSURE Last a dministered on 02/15/19at 22:21; Admin Dose 10 MG; Start 02/15/19 at 21:30 Fish Oil (Fish Oil) 2,000 mg BID PO ; Start 02/16/19 at 09:00 Cholecalciferol (Vitamin D) 2,000 unit DAILY PO ; Start 02/16/19 at 09:00 Losartan Potassium (Cozaar) 100 mg DAILY PO Last administered on 02/16/19at 12:13; Admin Dose 100 MG; Start 02/16/19 at 11:30 Amlodipine Besylate (Norvasc) 10 mg DAILY PO Last administered on 02/16/19at 08:17; Admin Dose 10 MG; Start 02/15/19 at 23:30 Miscellaneous Information 1 ea NOTE XX ; Start 02/15/19 at 23:45 Glucose (Glutose) 15 gm Q15M PRN PO DECREASED GLUCOSE; Start 02/15/19 at 23:45 Glucose (Glutose) 22.5 gm Q15M PRN PO DECREASED GLUCOSE; Start 02/15/19 at 23:45 Dextrose (D50w Syringe) 25 ml Q15M PRN IV DECREASED GLUCOSE; Start 02/15/19 at 23:45 Dextrose (D50w Syringe) 50 ml Q15M PRN IV DECREASED GLUCOSE; Start 02/15/19 at 23:45 Glucagon (Glucagen) 1 mg Q15M PRN IM DECREASED GLUCOSE; Start 02/15/19 at 23:45 Glucose (Glutose) 15 gm Q15M PRN BUCCAL DECREASED GLUCOSE; Start 02/15/19 at 23:45 Diagnostic Test (Pha) (Accu-Chek) 1 ea XX ; Start 02/16/19 at 02:00 Vancomycin HCl (Vanco Iv Per Pharmacy) VANCOMYCIN PER PHARMACY PER PROTOCOL XX ; Start 02/16/19 at 05:00 Ciprofloxacin/ Dextrose 200 ml @ 200 mls/hr Q24H IVPB Last administered on 02/16/19at 05:57; Admin Dose 200 MLS/HR; Start 02/16/19 at 05:00 Metronidazole 100 ml @ 100 mls/hr Q8 IVPB Last administered on 02/16/19at 13:26; Admin Dose 100 MLS/HR; Start 02/16/19 at 06:00 Insulin Aspart (Novolog Insulin Pen) NOVOLOG *MILD* ALGORITHM Q4 SC Last administered on 02/16/19at 12:22; Admin Dose 2 UNIT; Start 02/16/19 at 13:00 Past Medical History reviewed Home Meds Reported Medications Clonidine Hcl* (Clonidine Hcl*) 0.1 Mg Tab, 0.1 MG PO BID, TAB 02/15/19 Ondansetron Hcl* (Zofran*) 4 Mg Tab, 4 MG PO Q6H PRN for NAUSEA AND OR VOMITING, TAB 02/15/19 Cholecalciferol (Vitamin D3) (Vitamin D-3) 2,000 Unit Tablet, 2000 UNIT PO DAILY, TAB 02/15/19 [place]-3 Acid Ethyl Esters (Lovaza) 1 Gm Capsule, 2 GM PO BID, CAP 02/15/19 Atorvastatin* (Atorvastatin*) 40 Mg Tablet, 40 MG PO QHS, #30 TAB 02/15/19 Valsartan* (Diovan*) 320 Mg Tablet, 320 MG PO DAILY, TAB 02/15/19 Clopidogrel Bisulfate* (Clopidogrel Bisulfate*) 75 Mg Tablet, 75 MG PO DAILY, #30 TAB 02/15/19 Amlodipine Besylate* (Amlodipine Besylate*) 10 Mg Tablet, 10 MG PO DAILY, #30 TAB 02/15/19 Allopurinol* (Allopurinol*) 300 Mg Tablet, 300 MG PO DAILY, TAB 02/15/19 Insulin Isophan/Regular (Humulin 70/30) 100 Units/Ml Susp, 1 UNIT SC AC BREAKFAST DINNER, EA 40 UNITS-AM, 20 UNITS-QHS 02/15/19 Discontinued Reported Medications Pantoprazole* (Pantoprazole*) 40 Mg Tablet.dr, 40 MG PO AC BREAKFAST, TAB 05/14/18 Atorvastatin* (Atorvastatin*) 40 Mg Tablet, 40 MG PO QHS, #30 TAB 05/14/18 Clopidogrel Bisulfate* (Clopidogrel Bisulfate*) 75 Mg Tablet, 75 MG PO DAILY, #30 TAB 05/14/18 Allopurinol* (Allopurinol*) 300 Mg Tablet, 300 MG PO DAILY, TAB 05/14/18 Valsartan* (Diovan*) 320 Mg Tablet, 320 MG PO DAILY, TAB 05/14/18 Levofloxacin* (Levofloxacin*) 500 Mg Tablet, 500 MG PO DAILY, TAB FOR 10 DAYS, START DATE 05/12/18 05/14/18 [place]-3 Acid Ethyl Esters (Lovaza) 1 Gm Capsule, 2 GM PO BID, CAP 05/14/18 Cholecalciferol (Vitamin D3) (Vitamin D-3) 2,000 Unit Tablet, 2000 UNIT PO DAILY, TAB 05/14/18 Insulin Isophan/Regular (Humulin 70/30) 100 Units/Ml Susp, 40 UNIT SC AC BREAKFAST BEDTIME, EA 05/14/18 Ondansetron Hcl* (Zofran*) 4 Mg Tab, 4 MG PO Q12H PRN for NAUSEA AND OR VOMITING, TAB 05/14/18 Amlodipine Besylate* (Amlodipine Besylate*) 10 Mg Tablet, 10 MG PO DAILY, #30 TAB 05/14/18 Medications Current Medications IV Flush (NS 3 ml) 3 ml PER PROTOCOL IV ; Start 02/15/19 at 20:30 Ondansetron HCl (Zofran Inj) 4 mg Q6H PRN IV NAUSEA/VOMITING; Start 02/15/19 at 20:30 Acetaminophen (Tylenol Tab) 650 mg Q6H PRN PO .PAIN 1-3 OR TEMP; Start 02/15/19 at 20:30 Docusate Sodium (Colace) 100 mg Q12H PRN PO .CONSTIPATION; Start 02/15/19 at 20:30 Bisacodyl (Dulcolax) 5 mg DAILY PRN PO .CONSTIPATION; Start 02/15/19 at 20:30 Heparin Sodium (Porcine) (Heparin (5000 Units/1ml)) 5,000 unit Q8 SC Last administered on 02/16/19at 13:30; Admin Dose 5,000 UNIT; Start 02/15/19 at 22:00 Allopurinol (Zyloprim) 300 mg DAILY PO ; Start 02/16/19 at 09:00 Atorvastatin Calcium (Lipitor) 40 mg QHS PO ; Start 02/16/19 at 21:00 Clonidine (Catapres) 0.1 mg BID PO Last administered on 02/16/19at 08:18; Admin Dose 0.1 MG; Start 02/16/19 at 09:00 Clopidogrel Bisulfate (plaVIX) 75 mg DAILY PO Last administered on 02/16/19at 08:18; Admin Dose 75 MG; Start 02/16/19 at 09:00 Ondansetron HCl (Zofran Tab) 4 mg Q6H PRN PO NAUSEA AND/OR VOMITING; Start at 21:30 Hydralazine HCl (Apresoline) 10 mg Q6H PRN IV ELEVATED BLOOD PRESSURE Last administered on 02/15/19at 22:21; Admin Dose 10 MG; Start 02/15/19 at 21:30 Fish Oil (Fish Oil) 2,000 mg BID PO ; Start 02/16/19 at 09:00 Cholecalciferol (Vitamin D) 2,000 unit DAILY PO ; Start 02/16/19 at 09:00 Losartan Potassium (Cozaar) 100 mg DAILY PO Last administered on 02/16/19at 12:13; Admin Dose 100 MG; Start 02/16/19 at 11:30 Amlodipine Besylate (Norvasc) 10 mg DAILY PO Last administered on 02/16/19at 08:17; Admin Dose 10 MG; Start 02/15/19 at 23:30 Miscellaneous Information 1 ea NOTE XX ; Start 02/15/19 at 23:45 Glucose (Glutose) 15 gm Q15M PRN PO DECREASED GLUCOSE; Start 02/15/19 at 23:45 Glucose (Glutose) 22.5 gm Q15M PRN PO DECREASED GLUCOSE; Start 02/15/19 at 23:45 Dextrose (D50w Syringe) 25 ml Q15M PRN IV DECREASED GLUCOSE; Start 02/15/19 at 23:45 Dextrose (D50w Syringe) 50 ml Q15M PRN IV DECREASED GLUCOSE; Start 02/15/19 at 23:45 Glucagon (Glucagen) 1 mg Q15M PRN IM DECREASED GLUCOSE; Start 02/15/19 at 23:45 Glucose (Glutose) 15 gm Q15M PRN BUCCAL DECREASED GLUCOSE; Start 02/15/19 at 23:45 Diagnostic Test (Pha) (Accu-Chek) XX ; Start 02/16/19 at 02:00 Vancomycin HCl (Vanco Iv Per Pharmacy) VANCOMYCIN PER PHARMACY PER PROTOCOL XX ; Start 02/16/19 at 05:00 Ciprofloxacin/ Dextrose 200 ml @ 200 mls/hr Q24H IVPB Last administered on 02/16/19at 05:57; Admin Dose 200 MLS/HR; Start 02/16/19 at 05:00 Metronidazole 100 ml @ 100 mls/hr Q8 IVPB Last administered on 02/16/19at 13:26; Admin Dose 100 MLS/HR; Start 02/16/19 at 06:00 Insulin Aspart (Novolog Insulin Pen) NOVOLOG *MILD* ALGORITHM Q4 SC Last administered on 02/16/19at 12:22; Admin Dose 2 UNIT; Start 02/16/19 at 13:00 Allergies: Coded Allergies: Penicillins (Unverified Allergy, Unknown, 02/15/19) aspirin (Unverified Allergy, Unknown, 02/15/19) Past Surgical History reviewed Past Surgical Hx: other Social History reviewed Alcohol Use: none Smoking Status: Never smoker Drug Use: none EMILIE DAWN NP Feb 16, 2019 15:05 GALINA ZAMORANO Feb 16, 2019 15:26
[2019-02-16] MEDS ORDERED: ALBUMIN HUMAN 25% 100 ML IV PRN (15:30)
[2019-02-16] MEDS ORDERED: SODIUM CHLORIDE 0.9% 1L BAG IV PRN (15:30)
[2019-02-16] MEDS ORDERED: HEPARIN 1000 UNITS/ML 10 ML INJ CATHETER SCH (15:30)
--- NOTE | 2019-02-16 16:59 | RADRPT ---
Echocardiogram Report Patient Name: RAHEL BROWNPatient ID: [id number] : 1945 (73y 2m)Study Date: 02/16/2019 8:47:03 AM Gender: FAccession #: [id number] Tech: [facility] Location: [facility]- Ref.Physician: MACY COSBY Height(Cm): BSA: Weight(Kg): Quality: AdequateAccount #: Procedures: Echocardiographic Report: Transthoracic echocardiogram with complete 2D, M-Mode, and doppler examination. Indications: Near syncope. R/o vegetation. Measurements: 2D/M Mode Doppler Measurement Value Normal Range Measurement Value Normal Range LVIDd 2D 3.6 [ 3.8 - 5.2 ] cm AV Peak Andrés 1.8 [ 100.0 - 170.0 ] cm/sec LVIDs 2D 2.2 [ 2.2 - 3.5 ] cm AV Peak PG 13.0 [ 2.0 - 9.0 ] mmHg LVPWd 2D 1.0 [ 0.6 - 0.9 ] cm LVOT Peak Andrés 1.1 [ 70.0 - 110.0 ] cm/sec IVSd 2D 1.4 [ 0.6 - 0.9 ] cm LVOT Peak PG 5.0 [ 2.0 - 6.0 ] mmHg AoR Diam 2D 2.4 [ 2.3 - 3.1 ] cm MV E Peak Andrés 1.5 [ 60.0 - 130.0 ] cm/sec EDV 2D 53.3 [ 46.0 - 106.0 ] ml MV A Peak Andrés 1.3 [ 100.0 - 120.0 ] cm/sec ESV 2D 16.2 [ 14.0 - 42.0 ] ml MV E/A 1.2 [ 0.8 - 1.5 ] ratio EF 2D 69.6 [ 54.0 - 74.0 ] percent MV Decel Time 225 [ 104 - 258 ] msec LA Dimen 2D 3.3 [ 2.7 - 3.8 ] cm Lat E` Andrés 0.1 [ 10.0 - 15.0 ] cm/sec Lateral E/E` 22.0 [ 1.0 - 2.0 ] ratio MV E/A 1.2 [ 0.8 - 1.5 ] ratio TR Peak Andrés 2.9 [ 100.0 - 280.0 ] cm/sec TR Peak PG 34.0 mmHg RVSP 37.0 [ 10.0 - 36.0 ] mmHg Findings: Left Ventricle: Normal left ventricular systolic function. Normal left ventricular cavity size. Sigmoid septum. Ejection fraction is visually estimated at 65 %. Right Ventricle: Normal right ventricular size. Normal right ventricular systolic function. Left Atrium: The left atrium is normal in size. Right Atrium: The right atrium is normal in size. Mitral Valve: Mild mitral leaflet calcification. Mild mitral annular calcification. Trace mitral regurgitation. Aortic Valve: No hemodynamically significant aortic stenosis by doppler. Aortic cusps appear mildly calcified. Tricuspid Valve: Normal appearance of the tricuspid valve. Estimated peak PA systolic pressure 37 mmHg. There is mild tricuspid regurgitation. Pericardium: Normal pericardium with no significant pericardial effusion. Aorta: Normal aortic root. IVC: Normal size and normal respiratory collapse consistent with normal right atrial pressure. Conclusions: Normal left ventricular systolic function. Normal left ventricular cavity size. Sigmoid septum. Ejection fraction is visually estimated at 65 %. Normal right ventricular size. Normal right ventricular systolic function. The left atrium is normal in size. The right atrium is normal in size. Estimated peak PA systolic pressure 37 mmHg. There is mild tricuspid regurgitation. No significant valvular stenosis or regurgitation seen of remaining visualized valves. Normal pericardium with no significant pericardial effusion. Electronically Signed By: Dashawn Johnson 2019-02-16 16:59:11 PDT
--- NOTE | 2019-02-16 19:56 | CONS ---
Assessment/Plan Assessment/Plan Assessment/Plan (Daily) - End-stage renal disease: - hemodialysis Wednesday. - Avoid nephrotoxic agents - will order HD for tomorrow - Generalized tremors/rigors: Etiology is unclear at the current time. - Neuro follows - EEG - fu - Near syncope: - carotid Doppler ultrasound- fu - Diabetes mellitus - Hypertension - Hyperlipidemia: -Possible CAD: Continue statin, Plavix Further treatment strategy will be implemented as per the clinical course. Patient seen in collaboration with Dr Fadia Hudson Consultation Date/Type/Reason Admit Date/Time Type of Consult NEPHROLOGY Reason for Consultation ESRD; ON HD Date/Time of Note DATE: 02/16/19 TIME: 19:55 Hx of Present Illness This is a 73-year-old female with past history of End-stage renal disease, Diabetes mellitus, Hypertension, Hyperlipidemia, She was admitted to the telemetry floor for:generalized tremors/rigors and Near syncope. Renal is consulted for End-stage renal disease: on hemodialysis Wednesday.Dw Dr Fadia Hudson. HD tomorrow. Plan of care dw staff. Patients family at bed side- all questions answered. Thank you for the consultation. Eyes: no complaints ENT: no complaints Respiratory: no complaints Cardiovascular: no complaints Gastrointestinal: no complaints, other (unable to eat 2/2 trmors/twitching ) Genitourinary: no complaints Musculoskeletal: no complaints Skin: no complaints Neurologic: other (tremors) Endocrine: no complaints Lymphatic: no complaints Past Medical History Home Meds Reported Medications Clonidine Hcl* (Clonidine Hcl*) 0.1 Mg Tab, 0.1 MG PO BID, TAB 02/15/19 Ondansetron Hcl* (Zofran*) 4 Mg Tab, 4 MG PO Q6H PRN for NAUSEA AND OR VOMITING, TAB 02/15/19 Cholecalciferol (Vitamin D3) (Vitamin D-3) 2,000 Unit Tablet, 2000 UNIT PO DAILY, TAB 02/15/19 Carmichael-3 Acid Ethyl Esters (Lovaza) 1 Gm Capsule, 2 GM PO BID, CAP 02/15/19 Atorvastatin* (Atorvastatin*) 40 Mg Tablet, 40 MG PO QHS, #30 TAB 02/15/19 Valsartan* (Diovan*) 320 Mg Tablet, 320 MG PO DAILY, TAB 02/15/19 Clopidogrel Bisulfate* (Clopidogrel Bisulfate*) 75 Mg Tablet, 75 MG PO DAILY, #30 TAB 02/15/19 Amlodipine Besylate* (Amlodipine Besylate*) 10 Mg Tablet, 10 MG PO DAILY, #30 TAB 02/15/19 Allopurinol* (Allopurinol*) 300 Mg Tablet, 300 MG PO DAILY, TAB 02/15/19 Insulin Isophan/Regular (Humulin 70/30) 100 Units/Ml Susp, 1 UNIT SC AC BREAKFAST DINNER, EA 40 UNITS-AM, 20 UNITS-QHS 02/15/19 Discontinued Reported Medications Pantoprazole* (Pantoprazole*) 40 Mg Tablet.dr, 40 MG PO AC BREAKFAST, TAB 05/14/18 Atorvastatin* (Atorvastatin*) 40 Mg Tablet, 40 MG PO QHS, #30 TAB 05/14/18 Clopidogrel Bisulfate* (Clopidogrel Bisulfate*) 75 Mg Tablet, 75 MG PO DAILY, #30 TAB 05/14/18 Allopurinol* (Allopurinol*) 300 Mg Tablet, 300 MG PO DAILY, TAB 05/14/18 Valsartan* (Diovan*) 320 Mg Tablet, 320 MG PO DAILY, TAB 05/14/18 Levofloxacin* (Levofloxacin*) 500 Mg Tablet, 500 MG PO DAILY, TAB FOR 10 DAYS, START DATE 05/12/18 05/14/18 Carmichael-3 Acid Ethyl Esters (Lovaza) 1 Gm Capsule, 2 GM PO BID, CAP 05/14/18 Cholecalciferol (Vitamin D3) (Vitamin D-3) 2,000 Unit Tablet, 2000 UNIT PO DAILY, TAB 05/14/18 Insulin Isophan/Regular (Humulin 70/30) 100 Units/Ml Susp, 40 UNIT SC AC BREAKFAST BEDTIME, EA 05/14/18 Ondansetron Hcl* (Zofran*) 4 Mg Tab, 4 MG PO Q12H PRN for NAUSEA AND OR VOMITING, TAB 05/14/18 Amlodipine Besylate* (Amlodipine Besylate*) 10 Mg Tablet, 10 MG PO DAILY, #30 TAB 05/14/18 Medications Current Medications IV Flush (NS 3 ml) 3 ml PER PROTOCOL IV ; Start 02/15/19 at 20:30 Ondansetron HCl (Zofran Inj) 4 mg Q6H PRN IV NAUSEA/VOMITING; Start 02/15/19 at 20:30 Acetaminophen (Tylenol Tab) 650 mg Q6H PRN PO .PAIN 1-3 OR TEMP; Start 02/15/19 at 20:30 Docusate Sodium (Colace) 100 mg Q12H PRN PO .CONSTIPATION; Start 02/15/19 at 20:30 Bisacodyl (Dulcolax) 5 mg DAILY PRN PO .CONSTIPATION; Start 02/15/19 at 20:30 Heparin Sodium (Porcine) (Heparin (5000 Units/1ml)) 5,000 unit Q8 SC Last administered on 02/16/19at 13:30; Admin Dose 5,000 UNIT; Start 02/15/19 at 22:00 Allopurinol (Zyloprim) 300 mg DAILY PO Last administered on 02/16/19 18:18; Admin Dose 300 MG; Start 02/16/19 at 09:00 Atorvastatin Calcium (Lipitor) 40 mg QHS PO ; Start 02/16/19 at 21:00 Clonidine (Catapres) 0.1 mg BID PO Last administered on 02/16/19at 08:18; Admin Dose 0.1 MG; Start 02/16/19 at 09:00 Clopidogrel Bisulfate (plaVIX) 75 mg DAILY PO Last administered on 02/16/19 08:18; Admin Dose 75 MG; Start 02/16/19 at 09:00 Ondansetron HCl (Zofran Tab) 4 mg Q6H PRN PO NAUSEA AND/OR VOMITING; Start 02/15/19 at 21:30 Hydralazine HCl (Apresoline) 10 mg Q6H PRN IV ELEVATED BLOOD PRESSURE Last administered on 02/15/19at 22:21; Admin Dose 10 MG; Start 02/15/19 at 21:30 Fish Oil (Fish Oil) 2,000 mg BID PO ; Start 02/16/19 at 09:00 Cholecalciferol (Vitamin D) 2,000 unit DAILY PO Last administered on 02/16/19 18:18; Admin Dose 2,000 UNIT; Start 02/16/19 at 09:00 Losartan Potassium (Cozaar) 100 mg DAILY PO Last administered on 02/16/19at 1 2:13; Admin Dose 100 MG; Start 02/16/19 at 11:30 Amlodipine Besylate (Norvasc) 10 mg DAILY PO Last administered on 4/18/19at 08:17; Admin Dose 10 MG; Start 02/15/19 at 23:30 Miscellaneous Information 1 ea NOTE XX ; Start 02/15/19 at 23:45 Glucose (Glutose) 15 gm Q15M PRN PO DECREASED GLUCOSE; Start 02/15/19 at 23:45 Glucose (Glutose) 22.5 gm Q15M PRN PO DECREASED GLUCOSE; Start 02/15/19 at 23:4 5 Dextrose (D50w Syringe) 25 ml Q15M PRN IV DECREASED GLUCOSE; Start 02/15/19 at 23:45 Dextrose (D50w Syringe) 50 ml Q15M PRN IV DECREASED GLUCOSE; Start 02/15/19 at 23:45 Glucagon (Glucagen) 1 mg Q15M PRN IM DECREASED GLUCOSE; Start 02/15/19 at 23:45 Glucose (Glutose) 15 gm Q15M PRN BUCCAL DECREASED GLUCOSE; Start 02/15/19 at 23:45 Diagnostic Test (Pha) (Accu-Chek) 1 ea 02 XX ; Start 02/16/19 at 02:00 Vancomycin HCl (Vanco Iv Per Pharmacy) VANCOMYCIN PER PHARMACY PER PROTOCOL XX ; Start 02/16/19 at 05:00 Ciprofloxacin/ Dextrose 200 ml @ 200 mls/hr Q24H IVPB Last administered on 02/16/19at 05:57; Admin Dose 200 MLS/HR; Start 02/16/19 at 05:00 Metronidazole 100 ml @ 100 mls/hr Q8 IVPB Last administered on 02/16/19at 13:26; Admin Dose 100 MLS/HR; Start 02/16/19 at 06:00 Insulin Aspart (Novolog Insulin Pen) NOVOLOG *MILD* ALGORITHM Q4 SC Last administered on 02/16/19at 17:23; Admin Dose 2 UNIT; Start 02/16/19 at 13:00 Heparin Sodium (Porcine) (Heparin (1000 Units/ml)) 4,000 unit AFTER DIALYSIS CATHETER ; Start 02/16/19 at 15:30 Albumin Human 100 ml @ 100 mls/hr WITH DIALYSIS PRN IV SBP <90 DURING DIALYSIS; Start 02/16/19 at 15:30 Sodium Chloride (NS) -To prime the dialy... DIRECTED FOR HD PRN IV HD; Start 02/16/19 at 15:30 Allergies: Coded Allergies: Penicillins (Unverified Allergy, Unknown, 02/15/19) aspirin (Unverified Allergy, Unknown, 02/15/19) Past Surgical History Past Surgical Hx: other Social History Alcohol Use: none Smoking Status: Never smoker Drug Use: none Exam/Review of Systems Exam Vitals Vital Signs Date Temp Pulse Resp B/P (MAP) Pulse Ox O2 O2 Flow FiO2 Time Delivery Rate 02/16/19 98.1 70 17 159/73 100 19:45 (101) 02/16/19 Nasal 2.0 16:17 Cannula Intake and Output 02/15/19 02/15/19 02/16/19 1515:00 23:00 07:00 IntakeIntake Total 200 ml BalanceBalance 200 ml Constitutional: alert Psych: nl mood/affect Eyes: nl lids, nl sclera ENMT: nl external ears & nose Neck: non-tender Respiratory: diminished breath sounds Cardiovascular: nl pulses Gastrointestinal: soft, non-tender Musculoskeletal: nl extremities to inspection, muscle weakness Extremities: normal pulses Neurological: other (alert) Skin: nl turgor Lymph: nontender Results Result Diagram: 02/16/19 0534 02/16/19 0534 Results 24hrs Laboratory Tests Test 02/15/19 20:39 02/15/19 20:42 02/15/19 22:50 02/15/19 23:16 Ammonia < 9 L POC Venous Lactate 0.8 Lactic Acid Level 0.7 Bedside Glucose 174 Test 02/16/19 05:31 02/16/19 05:34 02/16/19 07:33 02/16/19 12:17 Hepatitis B Surface NEGATIVE Antigen White Blood Count 10.0 Red Blood Count 3.45 L Hemoglobin 9.9 L Hematocrit 30.6 L Mean Corpuscular 88.7 Volume Mean Corpuscular 28.7 L Hemoglobin Mean Corpuscular 32.4 Hemoglobin Concent Red Cell 16.9 H Distribution Width Platelet Count 264 Mean Platelet Volume 10.7 H Immature 0.200 Granulocytes % Neutrophils % 72.6 Lymphocytes % 16.5 Monocytes % 7.1 Eosinophils % 3.0 Basophils % 0.6 Nucleated Red Blood 0.0 Cells % Immature 0.020 Granulocytes # Neutrophils # 7.2 Lymphocytes # 1.7 Monocytes # 0.7 Eosinophils # 0.3 Basophils # 0.1 Nucleated Red Blood 0.0 Cells # Sodium Level 138 Potassium Level 3.6 Chloride Level 100 Carbon Dioxide Level 28 Anion Gap 10 # Blood Urea Nitrogen 42 H Creatinine 4.08 H Est Glomerular Filtrat Rate mL/min Glucose Level 156 Hemoglobin A1c 8.4 H Calcium Level 8.6 Total Bilirubin 0.5 Direct Bilirubin 0.00 Indirect Bilirubin 0.5 Aspartate Amino 18 Transf (AST/SGOT) Alanine 18 Aminotransferase (AL T/SGPT) Alkaline Phosphatase 98 Total Protein 6.8 # Albumin 3.5 Globulin 3.30 H Albumin/Globulin 1.06 Ratio Bedside Glucose 184 207 Test 02/16/19 17:17 Bedside Glucose 182 Medications Medication Current Medications IV Flush (NS 3 ml) 3 ml PER PROTOCOL IV ; Start 02/15/19 at 20:30 Ondansetron HCl (Zofran Inj) 4 mg Q6H PRN IV NAUSEA/VOMITING; Start 02/15/19 at 20:30 Acetaminophen (Tylenol Tab) 650 mg Q6H PRN PO .PAIN 1-3 OR TEMP; Start 02/15/19 at 20:30 Docusate Sodium (Colace) 100 mg Q12H PRN PO .CONSTIPATION; Start 02/15/19 at 20:30 Bisacodyl (Dulcolax) 5 mg DAILY PRN PO .CONSTIPATION; Start 02/15/19 at 20:30 Heparin Sodium (Porcine) (Heparin (5000 Units/1ml)) 5,000 unit Q8 SC Last administered on 02/16/19at 13:30; Admin Dose 5,000 UNIT; Start 02/15/19 at 22:00 Allopurinol (Zyloprim) 300 mg DAILY PO Last administered on 02/16/19at 18:18; Admin Dose 300 MG; Start 02/16/19 at 09:00 Atorvastatin Calcium (Lipitor) 40 mg QHS PO ; Start 02/16/19 at 21:00 Clonidine (Catapres) 0.1 mg BID PO Last administered on 02/16/19at 08:18; Admin Dose 0.1 MG; Start 02/16/19 at 09:00 Clopidogrel Bisulfate (plaVIX) 75 mg DAILY PO Last administered on 02/16/19at 08:18; Admin Dose 75 MG; Start 02/16/19 at 09:00 Ondansetron HCl (Zofran Tab) 4 mg Q6H PRN PO NAUSEA AND/OR VOMITING; Start 02/15/19 at 21:30 Hydralazine HCl (Apresoline) 10 mg Q6H PRN IV ELEVATED BLOOD PRESSURE Last administered on 02/15/19at 22:21; Admin Dose 10 MG; Start 02/15/19 at 21:30 Fish Oil (Fish Oil) 2,000 mg BID PO ; Start 02/16/19 at 09:00 Cholecalciferol (Vitamin D) 2,000 unit DAILY PO Last administered on 02/16/19at 18:18; Admin Dose 2,000 UNIT; Start 02/16/19 at 09:00 Losartan Potassium (Cozaar) 100 mg DAILY PO Last administered on 02/16/19at 12:13; Admin Dose 100 MG; Start 02/16/19 at 11:30 Amlodipine Besylate (Norvasc) 10 mg DAILY PO Last administered on 02/16/19at 08:17; Admin Dose 10 MG; Start 02/15/19 at 23:30 Miscellaneous Information 1 ea NOTE XX ; Start 02/15/19 at 23:45 Glucose (Glutose) 15 gm Q15M PRN PO DECREASED GLUCOSE; Start 02/15/19 at 23:45 Glucose (Glutose) 22.5 gm Q15M PRN PO DECREASED GLUCOSE; Start 02/15/19 at 23:45 Dextrose (D50w Syringe) 25 ml Q15M PRN IV DECREASED GLUCOSE; Start 02/15/19 at 23:45 Dextrose (D50w Syringe) 50 ml Q15M PRN IV DECREASED GLUCOSE; Start 02/15/19 at 23:45 Glucagon (Glucagen) 1 mg Q15M PRN IM DECREASED GLUCOSE; Start 02/15/19 at 23:45 Glucose (Glutose) 15 gm Q15M PRN BUCCAL DECREASED GLUCOSE; Start 02/15/19 at 23:45 Diagnostic Test (Pha) (Accu-Chek) 1 ea 02 XX ; Start 02/16/19 at 02:00 Vancomycin HCl (Vanco Iv Per Pharmacy) VANCOMYCIN PER PHARMACY PER PROTOCOL XX ; Start 02/16/19 at 05:00 Ciprofloxacin/ Dextrose 200 ml @ 200 mls/hr Q24H IVPB Last administered on 01/30 06/19at 05:57; Admin Dose 200 MLS/HR; Start 02/16/19 at 05:00 Metronidazole 100 ml @ 100 mls/hr Q8 IVPB Last administered on 02/16/19at 13:26; Admin Dose 100 MLS/HR; Start 02/16/19 at 06:00 Insulin Aspart (Novolog Insulin Pen) NOVOLOG *MILD* ALGORITHM Q4 SC Last administered on 02/16/19at 17:23; Admin Dose 2 UNIT; Start 02/16/19 at 13:00 Heparin Sodium (Porcine) (Heparin (1000 Units/ml)) 4,000 unit AFTER DIALYSIS CATHETER ; Start 02/16/19 at 15:30 Albumin Human 100 ml @ 100 mls/hr WITH DIALYSIS PRN IV SBP <90 DURING DIALYSIS; Start 02/16/19 at 15:30 Sodium Chloride (NS) -To prime the dialy... DIRECTED FOR HD PRN IV HD; Start 02/16/19 at 15:30 ELIZABETH HUNT Feb 16, 2019 19:56
[2019-02-16] MEDS: ATORVASTATIN 40 MG TAB PO SCH (21:43)
[2019-02-17] VITALS (27 sets, daily range): BP systolic 114–161; BP diastolic 48–81; PULSE 61–83; RESP 16–18
[2019-02-17] MEDS: INSULIN ASPART [NOVOLOG] 3 ML PEN SC SCH ×6 (01:00→20:42)
[2019-02-17] MEDS: ACCUCHECK AT 2AM (Patients on SS coverage) XX SCH (02:00)
[2019-02-17] MEDS: CIPROFLOXACIN 400MG/D5W 200 ML IVPB SCH (05:57)
[2019-02-17] MEDS: HEPARIN 5,000 UNIT/1 ML VIAL SC SCH ×3 (06:05→22:57)
[2019-02-17] MEDS: metroNIDAZOLE 500 MG/NS (PMX) 100 ML IVPB SCH ×3 (06:06→22:53)
[2019-02-17] MEDS: CLOPIDOGREL 75 MG TAB PO SCH (08:42)
[2019-02-17] MEDS: AMLODIPINE 10 MG TAB PO SCH (08:42)
[2019-02-17] MEDS: CHOLECALCIFEROL 2,000 UNIT CAP PO SCH (08:42)
[2019-02-17] MEDS: ALLOPURINOL 300 MG TAB PO SCH (08:43)
[2019-02-17] MEDS: LOSARTAN 50 MG TAB PO SCH (08:43)
[2019-02-17] MEDS: FISH OIL 1,000 MG CAP PO SCH ×2 (08:45→20:34)
[2019-02-17] MEDS ORDERED: LIDOCAINE 1% (MPF) 5 ML VIAL INJ ONE (10:00)
--- NOTE | 2019-02-17 11:05 | DS ---
Date/Time of Note Date/Time of Note DATE: 02/17/19 TIME: 10:57 Discharge Summary Admission/Discharge Info Admit Date/Time Feb 15, 2019 at 20:29 Discharge Date/Time Discharge Diagnosis 1. Intermittent whole body jerking movement, not while asleep 2. Near syncope, no loss of consciousness 3. End-stage renal disease: HD on Wednesday, HD today. 4. Diabetes mellitus: A1c 8.4, on insulin, follow up with PCP 5. Hypertension, stable 6. Hyperlipidemia: on statin 7. Possible CAD: on statin, Plavix Patient Condition: Stable Procedures chocardiogram Report Patient Name: RAHEL BROWN : 1945 (73y 2m) Study Date: 02/16/2019 8:47:03 AM Gender: F Tech: [place] [facility] Location: [facility] Ref.Physician: MACY COSBY Height(Cm): BSA: Weight(Kg): Quality: Adequate Account #: Procedures: Echocardiographic Report: Transthoracic echocardiogram with complete 2D, M-Mode, and doppler examination. Indications: Near syncope. R/o vegetation. Measurements: 2D/M Mode Doppler Measurement Value Normal Range Measurement Value Normal Range LVIDd 2D 3.6 [ 3.8 - 5.2 ] cm AV Peak Andrés 1.8 [ 100.0 - 170.0 ] cm/sec LVIDs 2D 2.2 [ 2.2 - 3.5 ] cm AV Peak PG 13.0 [ 2.0 - 9.0 ] mmHg LVPWd 2D 1.0 [ 0.6 - 0.9 ] cm LVOT Peak Andrés 1.1 [ 70.0 - 110.0 ] cm/sec IVSd 2D 1.4 [ 0.6 - 0.9 ] cm LVOT Peak PG 5.0 [ 2.0 - 6.0 ] mmHg AoR Diam 2D 2.4 [ 2.3 - 3.1 ] cm MV E Peak Andrés 1.5 [ 60.0 - 130.0 ] cm/sec EDV 2D 53.3 [ 46.0 - 106.0 ] ml MV A Peak Andrés 1.3 [ 100.0 - 120.0 ] cm/sec ESV 2D 16.2 [ 14.0 - 42.0 ] ml MV E/A 1.2 [ 0.8 - 1.5 ] ratio EF 2D 69.6 [ 54.0 - 74.0 ] percent MV Decel Time 225 [ 104 - 258 ] msec LA Dimen 2D 3.3 [ 2.7 - 3.8 ] cm Lat E` Andrés 0.1 [ 10.0 - 15.0 ] cm/sec Lateral E/E` 22.0 [ 1.0 - 2.0 ] ratio MV E/A 1.2 [ 0.8 - 1.5 ] ratio TR Peak Andrés 2.9 [ 100.0 - 280.0 ] cm/sec TR Peak PG 34.0 mmHg RVSP 37.0 [ 10.0 - 36.0 ] mmHg Findings: Left Ventricle: Normal left ventricular systolic function. Normal left ventricular cavity size. Sigmoid septum. Ejection fraction is visually estimated at 65 %. Right Ventricle: Normal right ventricular size. Normal right ventricular systolic function. Left Atrium: The left atrium is normal in size. Right Atrium: The right atrium is normal in size. Mitral Valve: Mild mitral leaflet calcification. Mild mitral annular calcification. Trace mitral regurgitation. Aortic Valve: No hemodynamically significant aortic stenosis by doppler. Aortic cusps appear mildly calcified. Tricuspid Valve: Normal appearance of the tricuspid valve. Estimated peak PA systolic pressure 37 mmHg. There is mild tricuspid regurgitation. Pericardium: Normal pericardium with no significant pericardial effusion. Aorta: Normal aortic root. IVC: Normal size and normal respiratory collapse consistent with normal right atrial pressure. Conclusions: Normal left ventricular systolic function. Normal left ventricular cavity size. Sigmoid septum. Ejection fraction is visually estimated at 65 %. Normal right ventricular size. Normal right ventricular systolic function. The left atrium is normal in size. The right atrium is normal in size. Estimated peak PA systolic pressure 37 mmHg. There is mild tricuspid regurgitation. No significant valvular stenosis or regurgitation seen of remaining visualized valves. Normal pericardium with no significant pericardial effusion. Electronically Signed By: Dashawn Johnson 2019-02-16 16:59:11 PDT PROCEDURE: US Carotids. CLINICAL INDICATION: bruit , near syncope TECHNIQUE: Multiple sonographic of the carotid bifurcation region and vertebral arteries were obtained utilizing guerra scale, duplex and color-flow imaging. The images were reviewed on a PACS workstation. COMPARISON: No prior studies are available for comparison. FINDINGS: Evaluation of the right carotid bifurcation region reveals mild to moderate calcific atherosclerotic disease. There is a 55% stenosis in the right carotid bulb. Evaluation of the left carotid bifurcation region reveals no significant calcific atherosclerotic disease. There is antegrade flow within the vertebral arteries bilaterally. RIGHT CAROTID MEASUREMENTS: Common Carotid Artery 95.8 (cm/sec) Internal Carotid Artery - proximal 87.8 (cm/sec) Internal Carotid Artery - mid 108.4 (cm/sec) Internal Carotid Artery - distal 76.6 (cm/sec) Internal Carotid/Common Carotid 1.23 LEFT CAROTID MEASUREMENTS: Common Carotid Artery 113.8 (cm/sec) Internal Carotid Artery - proximal 116.2 (cm/sec) Internal Carotid Artery - mid 98.2 (cm/sec) Internal Carotid Artery - distal 112.3 (cm/sec) Internal Carotid/Common Carotid 1.12 RPTAT: AA IMPRESSION: No evidence for hemodynamically significant stenosis in the bilateral internal carotid arteries - validated velocity measurements with angiographic measurements, velocity criteria are extrapolated from diameter data as defined by the Society of Radiologists in Ultrasound Consensus Conference Radiology 2003; 229;340-346. This study does indirectly reference the measurement of the distal ICA diameter as the denominator for stenosis measurement. Normal antegrade flow in the vertebral arteries bilaterally. Mild to moderate calcific plaque in the right carotid bulb with a 55% stenosis. .Stanley Chamberlain MD, MD Date Time Electronically viewed and signed by .Stanley Chamberlain MD, on 02/16/2019 09:09 Hospital Course This is a 73-year-old female with a past medical history of hypertension, diabetes, end-stage renal disease on Wednesday//Wednesday who presented to the emergency department with symptoms of near syncope. Patient reports that she went to dialysis yesterday. She states that after she went home she felt lightheaded and had generalized weakness and she also started noticing tremors. She states that she has felt the chills but denies any fevers. She had a similar episode occurred to her twice in the past and both times she was treated with antibiotics. She does have an occasional cough. She otherwise denies any sick contacts. For the near syncope, both echocardiography and carotid US are unremarkable. TSH 1.83. For the jerking movements, it only happens while she is awake and it involves the whole body. No evidence of infection clinically. The jerking movement resolved today. Etiology is unclear. She will follow up with PCP for this. Home Meds Reported Medications Clonidine Hcl* (Clonidine Hcl*) 0.1 Mg Tab, 0.1 MG PO BID, TAB 02/15/19 Cholecalciferol (Vitamin D3) (Vitamin D-3) 2,000 Unit Tablet, 2000 UNIT PO DAILY, TAB 02/15/19 Buhl-3 Acid Ethyl Esters (Lovaza) 1 Gm Capsule, 2 GM PO BID, CAP 02/15/19 Atorvastatin* (Atorvastatin*) 40 Mg Tablet, 40 MG PO QHS, #30 TAB 02/15/19 Valsartan* (Diovan*) 320 Mg Tablet, 320 MG PO DAILY, TAB 02/15/19 Clopidogrel Bisulfate* (Clopidogrel Bisulfate*) 75 Mg Tablet, 75 MG PO DAILY, #30 TAB 02/15/19 Amlodipine Besylate* (Amlodipine Besylate*) 10 Mg Tablet, 10 MG PO DAILY, #30 TAB 02/15/19 Allopurinol* (Allopurinol*) 300 Mg Tablet, 300 MG PO DAILY, TAB 02/15/19 Insulin Isophan/Regular (Humulin 70/30) 100 Units/Ml Susp, 1 UNIT SC AC BREAKFAST DINNER, EA 40 UNITS-AM, 20 UNITS-QHS 02/15/19 Discontinued Reported Medications Ondansetron Hcl* (Zofran*) 4 Mg Tab, 4 MG PO Q6H PRN for NAUSEA AND OR VOMITING, TAB 02/15/19 Pantoprazole* (Pantoprazole*) 40 Mg Tablet.dr, 40 MG PO AC BREAKFAST, TAB 05/14/18 Atorvastatin* (Atorvastatin*) 40 Mg Tablet, 40 MG PO QHS, #30 TAB 05/14/18 Clopidogrel Bisulfate* (Clopidogrel Bisulfate*) 75 Mg Tablet, 75 MG PO DAILY, #30 TAB 05/14/18 Allopurinol* (Allopurinol*) 300 Mg Tablet, 300 MG PO DAILY, TAB 05/14/18 Valsartan* (Diovan*) 320 Mg Tablet, 320 MG PO DAILY, TAB 05/14/18 Levofloxacin* (Levofloxacin*) 500 Mg Tablet, 500 MG PO DAILY, TAB FOR 10 DAYS, START DATE 05/12/18 05/14/18 Buhl-3 Acid Ethyl Esters (Lovaza) 1 Gm Capsule, 2 GM PO BID, CAP 05/14/18 Cholecalciferol (Vitamin D3) (Vitamin D-3) 2,000 Unit Tablet, 2000 UNIT PO DAILY, TAB 05/14/18 Insulin Isophan/Regular (Humulin 70/30) 100 Units/Ml Susp, 40 UNIT SC AC BREAKFAST BEDTIME, EA 05/14/18 Ondansetron Hcl* (Zofran*) 4 Mg Tab, 4 MG PO Q12H PRN for NAUSEA AND OR VOMITING, TAB 05/14/18 Amlodipine Besylate* (Amlodipine Besylate*) 10 Mg Tablet, 10 MG PO DAILY, #30 TAB 05/14/18 Follow-up Plan PCP and nephrology in one week Primary Care Provider Not On Staff Doctor Pending Labs Laboratory Tests Test 02/16/19 12:17 02/16/19 17:17 02/16/19 21:29 02/17/19 02:08 Bedside 207 182 143 132 Glucose mg/dL (70-220) mg/dL (70-220) mg/dL (70-220) mg/dL (70-220) Test 02/17/19 05:35 02/17/19 05:59 02/17/19 08:40 White Blood 9.3 Count 10^3/ul (4.8-10 .8) Red Blood 3.46 Count 10^6/ul (4.20-5 .40) Hemoglobin 9.9 g/dl (12.0-16.0 ) Hematocrit 30.5 % (37.0-47.0) Mean 88.2 Corpuscular fl (82.0-101.0) Volume Mean 28.6 Corpuscular pg (29.0-33.0) Hemoglobin Mean 32.5 Corpuscular g/dl (32.0-37.0 Hemoglobin Conc ) ent Red Cell 16.8 Distribution % (11.5-14.5) Width Platelet Count 266 10^3/UL (140-41 5) Mean Platelet 10.5 Volume fl (7.4-10.4) Immature 0.200 Granulocytes % % (0.001-0.429) Neutrophils % 77.2 % (39.0-77.0) Lymphocytes % 11.3 % (15.0-51.0) Monocytes % 6.6 % (0.0-11.0) Eosinophils % 3.8 % (0.0-7.0) Basophils % 0.9 % (0.0-2.0) Nucleated Red 0.0 Blood Cells % /100WBC (0.0-0. 0) Immature 0.020 Granulocytes # 10^3/ul (0.0-0. 031) Neutrophils # 7.2 10^3/ul (1.6-7. 5) Lymphocytes # 1.1 10^3/ul (0.8-2. 9) Monocytes # 0.6 10^3/ul (0.3-0. 9) Eosinophils # 0.4 10^3/ul (0.0-0. 5) Basophils # 0.1 10^3/ul (0.0-0. 1) Nucleated Red 0.0 Blood Cells # 10^3/ul (0.0-0. 0) Sodium Level 139 mmol/L (135-144 ) Potassium 4.1 Level mmol/L (3.5-5.1 ) Chloride Level 105 mmol/L (97-110) Carbon Dioxide 23 Level mmol/L (21-31) Anion Gap 11 (5-13) Blood Urea 47 mg/dl (7-20) Nitrogen Creatinine 4.87 mg/dl (0.44-1.0 0) Est Glomerular mL/min (>60) Filtrat Rate mL/min Glucose Level 140 mg/dl (70-220) Calcium Level 9.1 mg/dl (8.4-10.2 ) Bedside 148 145 Glucose mg/dL (70-220) mg/dL (70-220) CARLOS FLEMING MD Feb 17, 2019 11:05
--- NOTE | 2019-02-17 11:35 | CONS ---
Assessment/Plan Assessment/Plan Hospital Course 73 F c/ ESRD on HD, and other comorbidities, who presents for evaluation of episodic shaking w/ dizziness...for which neurology is consulted.. On neurologic examination, she had a stereotyped episode, which appeared to be nonphysiologic.. EEG was, though, notable for frequent R frontal epileptiform discharges.. Thyroid studies are wnl P: Start Depakote for seizure ppx Ativan iv prn prolonged seizure or cluster Await HCT for further characterization Consider alternative abx class to fluoroquinolones, which are known to precipitate seizures.. Other medical management and supportive care per primary Will follow clinically Consultation Date/Type/Reason Admit Date/Time Feb 15, 2019 at 20:29 Type of Consult Neurology Reason for Consultation tremors, generalized weakness Requesting Provider: CARLOS FLEMING MD Date/Time of Note DATE: 02/17/19 TIME: 11:34 24 HR Interval Summary Free Text/Dictation Continues acute care. Pt states that she had one episode of tremors this morning when she woke up. Exam Vital Signs Vitals Vital Signs Date Temp Pulse Resp B/P (MAP) Pulse Ox O2 O2 Flow FiO2 Time Delivery Rate 02/17/19 98.1 62 18 116/49 92 11:06 (71) 02/17/19 Nasal 2.0 07:52 Cannula Intake and Output 02/16/19 02/16/19 02/17/19 1515:00 23:00 07:00 IntakeIntake Total 350 ml 50 ml BalanceBalance 350 ml 50 ml Exam PE: Gen Appearance: No Apparent Distress HEENT: Normocephalic Cardiovascular: Regular rate Abdomen: Soft Extremities: Dry NE: The patient was awake and alert; grossly oriented. Speech was hypophonic. Able to follow simple axial and appendicular commands. Cranial nerve examination was limited by mental status. Pupils were equal and reactive to light. There was no afferent pupillary defect. Funduscopic examination was limited. Face was grossly symmetric, w/ present corneal and cough reflexes. Tone was normal. Muscle bulk was normal. No fasciculations were noted. The patient moved her extremities spontaneously, symmetrically. Coordination and gait testing was limited by mental status. Arm and leg reflexes were 2+ and symmetric. Logan's sign was absent. Plantar responses were flexor. EMILIE DAWN REGISTRY NURSE Feb 17, 2019 11:34 GALINA ZAMORANO Feb 17, 2019 20:07
--- NOTE | 2019-02-17 12:54 | PN ---
Date/Time of Note Date/Time of Note DATE: 02/17/19 TIME: 12:53 Assessment/Plan VTE Prophylaxis Risk score (from Ns)>0 risk: 4 SCD applied (from [facility] [place]): Yes SCD contraindicated: other Pharmacological prophylaxis: other Pharm contraindication: other Lines/Catheters [facility] Type [facility]from [facility] Saline Lock Urinary Cath still in place: No Assessment/Plan Assessment/Plan - End-stage renal disease:HD today - hemodialysis Wednesday. - Avoid nephrotoxic agents - Generalized tremors/rigors: Etiology is unclear at the current time. - Neuro follows - sp EEG - Near syncope: - carotid Doppler ultrasound- fu - Diabetes mellitus - Hypertension - Hyperlipidemia: -Possible CAD: Continue statin, Plavix Further treatment strategy will be implemented as per the clinical course. Patient seen in collaboration with Dr Fadia Hudson Result Diagram: 02/17/1935 02/17/1935 Results 24hrs Laboratory Tests Test 02/16/19 17:17 02/16/19 21:29 02/17/19 02:08 02/17/19 05:35 Bedside Glucose 182 143 132 White Blood Count 9.3 Red Blood Count 3.46 L Hemoglobin 9.9 L Hematocrit 30.5 L Mean Corpuscular 88.2 Volume Mean Corpuscular 28.6 L Hemoglobin Mean Corpuscular 32.5 Hemoglobin Concent Red Cell 16.8 H Distribution Width Platelet Count 266 Mean Platelet Volume 10.5 H Immature 0.200 Granulocytes % Neutrophils % 77.2 H Lymphocytes % 11.3 L Monocytes % 6.6 Eosinophils % 3.8 Basophils % 0.9 Nucleated Red Blood 0.0 Cells % Immature 0.020 Granulocytes # Neutrophils # 7.2 Lymphocytes # 1.1 Monocytes # 0.6 Eosinophils # 0.4 Basophils # 0.1 Nucleated Red Blood 0.0 Cells # Sodium Level 139 Potassium Level 4.1 Chloride Level 105 Carbon Dioxide Level 23 Anion Gap 11 Blood Urea Nitrogen 47 H Creatinine 4.87 H Est Glomerular Filtrat Rate mL/min Glucose Level 140 Calcium Level 9.1 Test 02/17/19 05:59 02/17/19 08:40 02/17/19 12:14 Bedside Glucose 148 145 101 Subjective 24 Hr Interval Summary Free Text/Dictation - having HD now; tolerating well - no tremors noted at present - family at bed side- all Qs answered - no new issues reported overnight - dw staff Eyes: no complaints ENT: no complaints Respiratory: no complaints Cardiovascular: no complaints Gastrointestinal: no complaints Genitourinary: no complaints Musculoskeletal: no complaints Skin: no complaints Neurologic: other (genera tremors) Endocrine: no complaints Lymphatic: no complaints Psychological: nl mood/affect Immunologic: no complaints Exam/Review of Systems Exam Vitals Vital Signs Date Temp Pulse Resp B/P (MAP) Pulse Ox O2 O2 Flow FiO2 Time Delivery Rate 02/17/19 70 12:35 02/17/19 17 115/48 98 Nasal 2.0 11:30 (70) Cannula 02/17/19 98.1 11:06 Intake and Output 02/16/19 02/16/19 02/17/19 1515:00 23:00 07:00 IntakeIntake Total 350 ml 50 ml BalanceBalance 350 ml 50 ml Constitutional: alert, well developed Psych: nl mood/affect Eyes: nl lids, nl sclera ENMT: nl external ears & nose Neck: non-tender Respiratory: diminished breath sounds (at bses bilaterally) Cardiovascular: nl pulses, other (s1s2) Gastrointestinal: soft, non-tender Musculoskeletal: muscle weakness Extremities: normal pulses Neurological: nl speech, other (alert/responsie) Skin: nl turgor Lymph: nontender Results Results 24hrs Laboratory Tests Test 02/16/19 17:17 02/16/19 21:29 02/17/19 02:08 02/17/19 05:35 Bedside Glucose 182 143 132 White Blood Count 9.3 Red Blood Count 3.46 L Hemoglobin 9.9 L Hematocrit 30.5 L Mean Corpuscular 88.2 Volume Mean Corpuscular 28.6 L Hemoglobin Mean Corpuscular 32.5 Hemoglobin Concent Red Cell 16.8 H Distribution Width Platelet Count 266 Mean Platelet Volume 10.5 H Immature 0.200 Granulocytes % Neutrophils % 77.2 H Lymphocytes % 11.3 L Monocytes % 6.6 Eosinophils % 3.8 Basophils % 0.9 Nucleated Red Blood 0.0 Cells % Immature 0.020 Granulocytes # Neutrophils # 7.2 Lymphocytes # 1.1 Monocytes # 0.6 Eosinophils # 0.4 Basophils # 0.1 Nucleated Red Blood 0.0 Cells # Sodium Level 139 Potassium Level 4.1 Chloride Level 105 Carbon Dioxide Level 23 Anion Gap 11 Blood Urea Nitrogen 47 H Creatinine 4.87 H Est Glomerular Filtrat Rate mL/min Glucose Level 140 Calcium Level 9.1 Test 02/17/19 05:59 02/17/19 08:40 02/17/19 12:14 Bedside Glucose 148 145 101 Medications Medication Current Medications IV Flush (NS 3 ml) 3 ml PER PROTOCOL IV ; Start 02/15/19 at 20:30 Ondansetron HCl (Zofran Inj) 4 mg Q6H PRN IV NAUSEA/VOMITING; Start 02/15/19 at 20:30 Acetaminophen (Tylenol Tab) 650 mg Q6H PRN PO .PAIN 1-3 OR TEMP; Start 02/15/19 at 20:30 Docusate Sodium (Colace) 100 mg Q12H PRN PO .CONSTIPATION; Start 02/15/19 at 2 0:30 Bisacodyl (Dulcolax) 5 mg DAILY PRN PO .CONSTIPATION; Start 02/15/19 at 20:30 Heparin Sodium (Porcine) (Heparin (5000 Units/1ml)) 5,000 unit Q8 SC Last administered on 02/17/19at 06:05; Admin Dose 5,000 UNIT; Start 02/15/19 at 22:00 Allopurinol (Zyloprim) 300 mg DAILY PO Last administered on 02/17/19 08:43; Admin Dose 300 MG; Start 02/16/19 at 09:00 Atorvastatin Calcium (Lipitor) 40 mg QHS PO Last administered on 02/16/19at 21:43; Admin Dose 40 MG; Start 02/16/19 at 21:00 Clonidine (Catapres) 0.1 mg BID PO Last administered on 02/17/19at 08:43; Admin Dose 0.1 MG; Start 02/16/19 at 09:00 Clopidogrel Bisulfate (plaVIX) 75 mg DAILY PO Last administered on 02/17/19 08:42; Admin Dose 75 MG; Start 02/16/19 at 09:00 Ondansetron HCl (Zofran Tab) 4 mg Q6H PRN PO NAUSEA AND/OR VOMITING; Start 02/15/19 at 21:30 Hydralazine HCl (Apresoline) 10 mg Q6H PRN IV ELEVATED BLOOD PRESSURE Last administered on 02/15/19at 22:21; Admin Dose 10 MG; Start 02/15/19 at 21:30 Fish Oil (Fish Oil) 2,000 mg BID PO Last administered on 02/16/19at 21:43; Admin Dose 2,000 MG; Start 02/16/19 at 09:00 Cholecalciferol (Vitamin D) 2,000 unit DAILY PO Last administered on 02/17/19at 08:42; Admin Dose 2,000 UNIT; Start 02/16/19 at 09:00 Losartan Potassium (Cozaar) 100 mg DAILY PO Last administered on 02/17/19at 08:43; Admin Dose 100 MG; Start 02/16/19 at 11:30 Amlodipine Besylate (Norvasc) 10 mg DAILY PO Last administered on 02/17/19at 08:42; Admin Dose 10 MG; Start 02/15/19 at 23:30 Miscellaneous Information 1 ea NOTE XX ; Start 02/15/19 at 23:45 Glucose (Glutose) 15 gm Q15M PRN PO DECREASED GLUCOSE; Start 02/15/19 at 23:45 Glucose (Glutose) 22.5 gm Q15M PRN PO DECREASED GLUCOSE; Start 02/15/19 at 23:45 Dextrose (D50w Syringe) 25 ml Q15M PRN IV DECREASED GLUCOSE; Start 02/15/19 at 23:45 Dextrose (D50w Syringe) 50 ml Q15M PRN IV DECREASED GLUCOSE; Start 02/15/19 at 23:45 Glucagon (Glucagen) 1 mg Q15M PRN IM DECREASED GLUCOSE; Start 02/15/19 at 23:45 Glucose (Glutose) 15 gm Q15M PRN BUCCAL DECREASED GLUCOSE; Start 02/15/19 at 23:45 Diagnostic Test (Pha) (Accu-Chek) 1 ea 02 XX Last administered on 02/17/19at 02:00; Admin Dose 1 EA; Start 02/16/19 at 02:00 Vancomycin HCl (Vanco Iv Per Pharmacy) VANCOMYCIN PER PHARMACY PER PROTOCOL XX ; Start 02/16/19 at 05:00 Ciprofloxacin/ Dextrose 200 ml @ 200 mls/hr Q24H IVPB Last administered on 02/17/19at 05:57; Admin Dose 200 MLS/HR; Start 02/16/19 at 05:00 Metronidazole 100 ml @ 100 mls/hr Q8 IVPB Last administered on 02/17/19at 06:06; Admin Dose 100 MLS/HR; Start 02/16/19 at 06:00 Insulin Aspart (Novolog Insulin Pen) NOVOLOG *MILD* ALGORITHM Q4 SC Last administered on 02/17/19at 08:47; Admin Dose 1 UNIT; Start 02/16/19 at 13:00 Heparin Sodium (Porcine) (Heparin (1000 Units/ml)) 4,000 unit AFTER DIALYSIS CATHETER ; Start 02/16/19 at 15:30 Albumin Human 100 ml @ 100 mls/hr WITH DIALYSIS PRN IV SBP <90 DURING DIALYSIS; Start 02/16/19 at 15:30 Sodium Chloride (NS) -To prime the dialy... DIRECTED FOR HD PRN IV HD; Start 02/16/19 at 15:30 ELIZABETH HUNT Feb 17, 2019 12:54
--- NOTE | 2019-02-17 20:11 | EEG ---
EEG NOTE Report Details DATE OF TEST: 02/16/19 HISTORY: The patient is a 73-year-old F who presents with shaking spells. This EEG is requested to evaluate for seizures. SEDATION: None. CONDITIONS OF RECORDING: This EEG was recorded digitally on the [employer] machine, using the International 10-20 System of electrodes plus anterior temporals and Nz. STATES SAMPLED: Wakefulness and drowsiness. FINDINGS: The background is continuous and grossly symmetric. There are frequent R frontal predominant epileptiform discharges. There is a normal [id number]-[id number] frequency-amplitude gradient. The remainder of the awake background is normal. Photic stimulation does not elicit any definite driving responses or epileptiform discharges.was not performed. Hyperventilation was not performed. The patient became drowsy but did not pass into sleep. IMPRESSION: Abnormal electroencephalogram due to: frequent R frontal predominant epileptiform discharges. COMMENT: R frontal epileptiform discharges suggests a potentially epileptogenic focus in that region. GALINA ZAMORANO Feb 17, 2019 20:11
[2019-02-17] MEDS: ATORVASTATIN 40 MG TAB PO SCH (20:33)
[2019-02-17] MEDS ORDERED: VALPROATE INJ 750 MG in SOD CHLORIDE 0.9% 50 ML IVPB ONE (21:30)
[2019-02-18] VITALS (27 sets, daily range): BP systolic 133–162; BP diastolic 56–83; PULSE 60–84; RESP 16–20
[2019-02-18] MEDS: INSULIN ASPART [NOVOLOG] 3 ML PEN SC SCH ×6 (01:50→21:30)
[2019-02-18] MEDS: ACCUCHECK AT 2AM (Patients on SS coverage) XX SCH (01:50)
[2019-02-18] MEDS: CIPROFLOXACIN 400MG/D5W 200 ML IVPB SCH (05:09)
[2019-02-18] MEDS: metroNIDAZOLE 500 MG/NS (PMX) 100 ML IVPB SCH ×3 (06:18→21:26)
[2019-02-18] MEDS: HEPARIN 5,000 UNIT/1 ML VIAL SC SCH ×3 (06:19→22:37)
[2019-02-18] MEDS: FISH OIL 1,000 MG CAP PO SCH ×2 (09:00→21:26)
[2019-02-18] MEDS: DIVALPROEX (EC) 250 MG TAB PO SCH ×3 (09:21→21:26)
[2019-02-18] MEDS: ALLOPURINOL 300 MG TAB PO SCH (09:22)
[2019-02-18] MEDS: AMLODIPINE 10 MG TAB PO SCH (09:23)
[2019-02-18] MEDS: CLOPIDOGREL 75 MG TAB PO SCH (09:23)
[2019-02-18] MEDS: LOSARTAN 50 MG TAB PO SCH (09:23)
[2019-02-18] MEDS: CHOLECALCIFEROL 2,000 UNIT CAP PO SCH (09:23)
[2019-02-18] MEDS ORDERED: VALPROATE INJ 500 MG in SOD CHLORIDE 0.9% 50 ML IVPB ONE (10:00)
--- NOTE | 2019-02-18 10:34 | PN ---
Date/Time of Note Date/Time of Note DATE: 02/18/19 TIME: 10:32 Assessment/Plan VTE Prophylaxis Risk score (from Ns)>0 risk: 4 SCD applied (from Ns): Yes Pharmacological prophylaxis: heparin Lines/Catheters IV [facility]from [facility] Saline Lock Urinary Cath still in place: No Assessment/Plan Problems: (1) Frontal lobe epilepsy Status: Acute Comment: Diagnosis. She has been started on valproic acid as of yesterday. Need to hang onto her a little bit so we can determine efficacy. This is being guided by our colleagues in neurology, thank you (2) Diabetes mellitus type 2 in nonobese Status: Chronic Comment: Adequate glycemic control. Avoid hypoglycemia (3) Mixed hyperlipidemia due to type 2 diabetes mellitus Status: Chronic Comment: Stable on treatment. (4) Acquired hypothyroidism Status: Chronic Comment: Continue replacement therapy. (5) End stage renal disease on dialysis due to type 2 diabetes mellitus Status: Chronic Comment: Continue hemodialysis with guidance from nephrology (6) Essential hypertension Status: Chronic Comment: Adequate control. Result Diagram: 02/17/19 0535 02/17/19 0535 Results 24hrs Laboratory Tests Test 02/17/19 12:14 02/17/19 16:59 02/17/19 20:37 02/18/19 01:38 Bedside Glucose 101 137 191 147 Test 02/18/19 05:06 02/18/19 05:07 02/18/19 09:20 Random Vancomycin 12.2 Level Valproic Acid 35 L (Depakene) Level Bedside Glucose 117 135 Subjective 24 Hr Interval Summary Free Text/Dictation Patient reports that she is doing fair and has some degree of weakness. She anticipates further dialysis today. Constitutional: no complaints Respiratory: no complaints Cardiovascular: no complaints Gastrointestinal: no complaints Genitourinary: no complaints Exam/Review of Systems Exam Vitals Vital Signs Date Temp Pulse Resp B/P (MAP) Pulse Ox O2 O2 Flow FiO2 Time Delivery Rate 02/18/19 70 08:15 02/18/19 98.0 18 144/66 93 07:00 (92) 02/17/19 Nasal 2.0 14:00 Cannula Intake and Output 02/17/19 02/17/19 02/18/19 1414:59 22:59 06:59 OutputOutput Total 2400 ml BalanceBalance -2400 ml Constitutional: alert, oriented Cardiovascular: regular rate and rhythm, nl pulses Gastrointestinal: soft, nl liver, spleen, non-tender Results Results 24hrs Laboratory Tests Test 02/17/19 12:14 02/17/19 16:59 02/17/19 20:37 02/18/19 01:38 Bedside Glucose 101 137 191 147 Test 02/18/19 05:06 02/18/19 05:07 02/18/19 09:20 Random Vancomycin 12.2 Level Valproic Acid 35 L (Depakene) Level Bedside Glucose 117 135 Medications Medication Current Medications IV Flush (NS 3 ml) 3 ml PER PROTOCOL IV ; Start 02/15/19 at 20:30 Ondansetron HCl (Zofran Inj) 4 mg Q6H PRN IV NAUSEA/VOMITING Last administered on 02/18/19at 06:21; Admin Dose 4 MG; Start 02/15/19 at 20:30 Acetaminophen (Tylenol Tab) 650 mg Q6H PRN PO .PAIN 1-3 OR TEMP; Start 02/15/19 at 20:30 Docusate Sodium (Colace) 100 mg Q12H PRN PO .CONSTIPATION; Start 02/15/19 at 20:30 Bisacodyl (Dulcolax) 5 mg DAILY PRN PO .CONSTIPATION; Start 02/15/19 at 20:30 Heparin Sodium (Porcine) (Heparin (5000 Units/1ml)) 5,000 unit Q8 SC Last administered on 02/18/19at 06:19; Admin Dose 5,000 UNIT; Start 02/15/19 at 22:00 Allopurinol (Zyloprim) 300 mg DAILY PO Last administered on 02/18/19at 09:22; Admin Dose 300 MG; Start 02/16/19 at 09:00 Atorvastatin Calcium (Lipitor) 40 mg QHS PO Last administered on 02/17/19at 20:33; Admin Dose 40 MG; Start 02/16/19 at 21:00 Clonidine (Catapres) 0.1 mg BID PO Last administered on 02/18/19 09:23; Admin Dose 0.1 MG; Start 02/16/19 at 09:00 Clopidogrel Bisulfate (plaVIX) 75 mg DAILY PO Last administered on 02/18/19at 09:23; Admin Dose 75 MG; Start 02/16/19 at 09:00 Ondansetron HCl (Zofran Tab) 4 mg Q6H PRN PO NAUSEA AND/OR VOMITING; Start 02/15/19 at 21:30 Hydralazine HCl (Apresoline) 10 mg Q6H PRN IV ELEVATED BLOOD PRESSURE Last administered on 02/15/19at 22:21; Admin Dose 10 MG; Start 02/15/19 at 21:30 Fish Oil (Fish Oil) 2,000 mg BID PO Last administered on 02/17/19at 20:34; Admin Dose 2,000 MG; Start 02/16/19 at 09:00 Cholecalciferol (Vitamin D) 2,000 unit DAILY PO Last administered on 02/18/19at 09:23; Admin Dose 2,000 UNIT; Start 02/16/19 at 09:00 Losartan Potassium (Cozaar) 100 mg DAILY PO Last administered on 02/18/19at 09:23; Admin Dose 100 MG; Start 02/16/19 at 11:30 Amlodipine Besylate (Norvasc) 10 mg DAILY PO Last administered on 02/18/19at 09:23; Admin Dose 10 MG; Start 02/15/19 at 23:30 Miscellaneous Information 1 ea NOTE XX ; Start 02/15/19 at 23:45 Glucose (Glutose) 15 gm Q15M PRN PO DECREASED GLUCOSE; Start 02/15/19 at 23:45 Glucose (Glutose) 22.5 gm Q15M PRN PO DECREASED GLUCOSE; Start 02/15/19 at 23:45 Dextrose (D50w Syringe) 25 ml Q15M PRN IV DECREASED GLUCOSE; Start 02/15/19 at 23:45 Dextrose (D50w Syringe) 50 ml Q15M PRN IV DECREASED GLUCOSE; Start 02/15/19 at 23:45 Glucagon (Glucagen) 1 mg Q15M PRN IM DECREASED GLUCOSE; Start 02/15/19 at 23:45 Glucose (Glutose) 15 gm Q15M PRN BUCCAL DECREASED GLUCOSE; Start 02/15/19 at 23:45 Diagnostic Test (Pha) (Accu-Chek) 1 ea 02 XX Last administered on 02/18/19at 01:50; Admin Dose 1 EA; Start 02/16/19 at 02:00 Vancomycin HCl (Vanco Iv Per Pharmacy) VANCOMYCIN PER PHARMACY PER PROTOCOL XX ; Start 02/16/19 at 05:00 Ciprofloxacin/ Dextrose 200 ml @ 200 mls/hr Q24H IVPB Last administered on 02/18/19at 05:09; Admin Dose 200 MLS/HR; Start 02/16/19 at 05:00 Metronidazole 100 ml @ 100 mls/hr Q8 IVPB Last administered on 02/18/19at 06:18; Admin Dose 100 MLS/HR; Start 02/16/19 at 06:00 Insulin Aspart (Novolog Insulin Pen) NOVOLOG *MILD* ALGORITHM Q4 SC Last administered on 02/18/19at 01:50; Admin Dose 1 UNIT; Start 02/16/19 at 13:00 Heparin Sodium (Porcine) (Heparin (1000 Units/ml)) 4,000 unit AFTER DIALYSIS CA THETER ; Start 02/16/19 at 15:30 Albumin Human 100 ml @ 100 mls/hr WITH DIALYSIS PRN IV SBP <90 DURING DIALYSIS; Start 02/16/19 at 15:30 Sodium Chloride (NS) -To prime the dialy... DIRECTED FOR HD PRN IV HD; Start 02/16/19 at 15:30 Divalproex Sodium (Depakote) 250 mg TID PO Last administered on 02/18/19at 09:21; Admin Dose 250 MG; Start 02/18/19 at 09:00 Vancomycin/Sodium Chloride 250 ml @ 125 mls/hr ONCE IVPB ; Start 02/18/19 at 18:00; Stop 02/18/19 at 18:01 Valproate Sodium 500 mg/Sodium Chloride 55 ml @ 55 mls/hr ONCE ONCE IVPB ; Start 02/18/19 at 10:00; Stop 02/18/19 at 10:59 WILLIAM LOCKETT MD Feb 18, 2019 10:34
[2019-02-18] MEDS: LIDOCAINE 1% (MDV) 20 ML INJ INJ PRN (12:28)
--- NOTE | 2019-02-18 17:50 | CONS ---
Assessment/Plan Assessment/Plan Assessment/Plan (Daily) - End-stage renal disease:HD today - hemodialysis Wednesday. - Avoid nephrotoxic agents - Generalized tremors/rigors: Etiology is unclear at the current time. - Neuro follows - sp EEG - Near syncope: - carotid Doppler ultrasound- fu - Diabetes mellitus - Hypertension - Hyperlipidemia: -Possible CAD: Continue statin, Plavix Further treatment strategy will be implemented as per the clinical course. Patient seen in collaboration with Dr Fadia Hudson Consultation Date/Type/Reason Admit Date/Time Feb 17, 2019 at 15:21 Initial Consult Date Type of Consult NEPHROLOGY Reason for Consultation ESRD on HD Requesting Provider: CARLOS FLEMING MD Date/Time of Note DATE: 02/18/19 TIME: 17:50 Detailed Summary Eyes: no complaints ENT: no complaints Respiratory: no complaints Cardiovascular: no complaints Gastrointestinal: no complaints Genitourinary: no complaints Musculoskeletal: no complaints, other (general weakness) Neurologic: other (tremors) Lymphatic: no complaints Psychological: nl mood/affect Immunologic: no complaints Exam/Review of Systems Exam Vitals Vital Signs Date Temp Pulse Resp B/P (MAP) Pulse Ox O2 O2 Flow FiO2 Time Delivery Rate 02/18/19 76 16:13 02/18/19 98.6 20 162/65 99 16:00 (97) 02/18/19 Room Air 15:31 02/17/19 2.0 14:00 Intake and Output 02/17/19 02/17/19 02/18/19 1515:00 23:00 07:00 OutputOutput Total 2400 ml BalanceBalance -2400 ml Constitutional: alert, well developed Psych: nl mood/affect Eyes: nl lids, nl sclera ENMT: nl external ears & nose Neck: supple Respiratory: diminished breath sounds (at bases bilaterally) Gastrointestinal: soft, non-tender Musculoskeletal: muscle weakness Extremities: normal pulses Neurological: nl speech, other (alert/reponsive; tremors) Skin: nl turgor Lymph: nontender Results Result Diagram: 02/17/19 0535 02/17/19 0535 Results 24hrs Laboratory Tests Test 02/17/19 20:37 02/18/19 01:38 02/18/19 05:06 02/18/19 05:07 Bedside Glucose 191 147 117 Random Vancomycin 12.2 Level Valproic Acid 35 L (Depakene) Level Test 02/18/19 09:20 02/18/19 13:21 02/18/19 17:08 Bedside Glucose 135 114 212 Medications Medication Current Medications IV Flush (NS 3 ml) 3 ml PER PROTOCOL IV ; Start 02/15/19 at 20:30 Ondansetron HCl (Zofran Inj) 4 mg Q6H PRN IV NAUSEA/VOMITING Last administered on 02/18/19at 06:21; Admin Dose 4 MG; Start 02/15/19 at 20:30 Acetaminophen (Tylenol Tab) 650 mg Q6H PRN PO .PAIN 1-3 OR TEMP; Start 02/15/19 at 20:30 Docusate Sodium (Colace) 100 mg Q12H PRN PO .CONSTIPATION; Start 02/15/19 at 20:30 Bisacodyl (Dulcolax) 5 mg DAILY PRN PO .CONSTIPATION; Start 02/15/19 at 20:30 Heparin Sodium (Porcine) (Heparin (5000 Units/1ml)) 5,000 unit Q8 SC Last administered on 02/18/19at 16:06; Admin Dose 5,000 UNIT; Start 02/15/19 at 22:00 Allopurinol (Zyloprim) 300 mg DAILY PO Last administered on 02/18/19 09:22; Admin Dose 300 MG; Start 02/16/19 at 09:00 Atorvastatin Calcium (Lipitor) 40 mg QHS PO Last administered on 02/17/19 20:33; Admin Dose 40 MG; Start 02/16/19 at 21:00 Clonidine (Catapres) 0.1 mg BID PO Last administered on 02/18/19 09:23; Admin Dose 0.1 MG; Start 02/16/19 at 09:00 Clopidogrel Bisulfate (plaVIX) 75 mg DAILY PO Last administered on 02/18/19 09:23; Admin Dose 75 MG; Start 02/16/19 at 09:00 Ondansetron HCl (Zofran Tab) 4 mg Q6H PRN PO NAUSEA AND/OR VOMITING; Start 02/15/19 at 21:30 Hydralazine HCl (Apresoline) 10 mg Q6H PRN IV ELEVATED BLOOD PRESSURE Last administered on 02/15/19at 22:21; Admin Dose 10 MG; Start 02/15/19 at 21:30 Fish Oil (Fish Oil) 2,000 mg BID PO Last administered on 02/17/19at 20:34; Admin Dose 2,000 MG; Start 02/16/19 at 09:00 Cholecalciferol (Vitamin D) 2,000 unit DAILY PO Last administered on 02/18/19at 09:23; Admin Dose 2,000 UNIT; Start 02/16/19 at 09:00 Losartan Potassium (Cozaar) 100 mg DAILY PO Last administered on 02/18/19at 09:23; Admin Dose 100 MG; Start 02/16/19 at 11:30 Amlodipine Besylate (Norvasc) 10 mg DAILY PO Last administered on 02/18/19at 09:23; Admin Dose 10 MG; Start 02/15/19 at 23:30 Miscellaneous Information 1 ea NOTE XX ; Start 02/15/19 at 23:45 Glucose (Glutose) 15 gm Q15M PRN PO DECREASED GLUCOSE; Start 02/15/19 at 23:45 Glucose (Glutose) 22.5 gm Q15M PRN PO DECREASED GLUCOSE; Start 02/15/19 at 23:45 Dextrose (D50w Syringe) 25 ml Q15M PRN IV DECREASED GLUCOSE; Start 02/15/19 at 23:45 Dextrose (D50w Syringe) 50 ml Q15M PRN IV DECREASED GLUCOSE; Start 02/15/19 at 23:45 Glucagon (Glucagen) 1 mg Q15M PRN IM DECREASED GLUCOSE; Start 02/15/19 at 23:45 Glucose (Glutose) 15 gm Q15M PRN BUCCAL DECREASED GLUCOSE; Start 02/15/19 at 23:45 Diagnostic Test (Pha) (Accu-Chek) 1 ea 02 XX Last administered on 02/18/19at 01:50; Admin Dose 1 EA; Start 02/16/19 at 02:00 Vancomycin HCl (Vanco Iv Per Pharmacy) VANCOMYCIN PER PHARMACY PER PROTOCOL XX ; Start 02/16/19 at 05:00 Ciprofloxacin/ Dextrose 200 ml @ 200 mls/hr Q24H IVPB Last administered on 02/18/19at 05:09; Admin Dose 200 MLS/HR; Start 02/16/19 at 05:00 Metronidazole 100 ml @ 100 mls/hr Q8 IVPB Last administered on 02/18/19at 06:18; Admin Dose 100 MLS/HR; Start 02/16/19 at 06:00 Insulin Aspart (Novolog Insulin Pen) NOVOLOG *MILD* ALGORITHM Q4 SC Last administered on 02/18/19at 17:25; Admin Dose 2 UNIT; Start 02/16/19 at 13:00 Heparin Sodium (Porcine) (Heparin (1000 Units/ml)) 4,000 unit AFTER DIALYSIS CATHETER ; Start 02/16/19 at 15:30 Albumin Human 100 ml @ 100 mls/hr WITH DIALYSIS PRN IV SBP <90 DURING DIALYSIS; Start 02/16/19 at 15:30 Sodium Chloride (NS) -To prime the dialy... DIRECTED FOR HD PRN IV HD; Start 02/16/19 at 15:30 Divalproex Sodium (Depakote) 250 mg TID PO Last administered on 02/18/19at 15:50; Admin Dose 250 MG; Start 02/18/19 at 09:00 Vancomycin/Sodium Chloride 250 ml @ 125 mls/hr ONCE IVPB Last administered on 02/18/19at 17:04; Admin Dose 125 MLS/HR; Start 02/18/19 at 18:00; Stop 02/18/19 at 18:01 Lidocaine (Xylocaine 1% (Mdv) 20 ml) 1 ml WITH DIALYSIS PRN INJ PRIOR TO CANULLATION/HD Last administered on 02/18/19at 12:28; Admin Dose 1 ML; Start 02/18/19 at 11:30 ELIZABETH HUNT Feb 18, 2019 17:50
[2019-02-18] MEDS ORDERED: VANCOMYCIN 750 MG (PMX) 250 ML IVPB SCH (18:00)
[2019-02-18] MEDS: ATORVASTATIN 40 MG TAB PO SCH (21:26)
[2019-02-19] VITALS (12 sets, daily range): BP systolic 131–162; BP diastolic 62–83; PULSE 55–73; RESP 18–21
[2019-02-19] MEDS: INSULIN ASPART [NOVOLOG] 3 ML PEN SC SCH ×6 (01:00→21:43)
[2019-02-19] MEDS: ACCUCHECK AT 2AM (Patients on SS coverage) XX SCH (02:05)
[2019-02-19] MEDS: CIPROFLOXACIN 400MG/D5W 200 ML IVPB SCH (05:38)
[2019-02-19] MEDS: metroNIDAZOLE 500 MG/NS (PMX) 100 ML IVPB SCH ×3 (05:38→21:39)
[2019-02-19] MEDS: HEPARIN 5,000 UNIT/1 ML VIAL SC SCH ×3 (05:40→21:45)
[2019-02-19] MEDS: AMLODIPINE 10 MG TAB PO SCH (08:13)
[2019-02-19] MEDS: DIVALPROEX (EC) 250 MG TAB PO SCH ×3 (08:13→21:39)
[2019-02-19] MEDS: FISH OIL 1,000 MG CAP PO SCH ×2 (08:13→21:39)
[2019-02-19] MEDS: CHOLECALCIFEROL 2,000 UNIT CAP PO SCH (08:13)
[2019-02-19] MEDS: CLOPIDOGREL 75 MG TAB PO SCH (08:13)
[2019-02-19] MEDS: ALLOPURINOL 300 MG TAB PO SCH (08:13)
[2019-02-19] MEDS: LOSARTAN 50 MG TAB PO SCH (08:14)
--- NOTE | 2019-02-19 11:31 | PN ---
Date/Time of Note Date/Time of Note DATE: 02/19/19 TIME: 11:28 Assessment/Plan VTE Prophylaxis Risk score (from Ns)>0 risk: 3 SCD applied (from Ns): Yes Pharmacological prophylaxis: heparin Lines/Catheters IV Catheter Type (from [facility]): Saline Lock Urinary Cath still in place: No Assessment/Plan Problems: (1) Frontal lobe epilepsy Status: Acute Comment: This is a new diagnosis and the patient is now on anti-epilepsy medication therapy. Neurology has requested to have input on disposition and timing of discharge (2) End stage renal disease on dialysis due to type 2 diabetes mellitus Status: Chronic Comment: Stable on dialysis. (3) Diabetes mellitus type 2 in nonobese Status: Chronic Comment: Good blood sugar control on the current regimen in controlled environment with controlled diet (4) Essential hypertension Status: Chronic Comment: Adequate blood pressure control although we could tighten this up a little bit more (5) Mixed hyperlipidemia due to type 2 diabetes mellitus Status: Chronic Comment: Stable on treatment (6) Acquired hypothyroidism Status: Chronic Comment: Continue with replacement therapy (7) Osteoporosis Status: Chronic Comment: Noted. Qualifiers: Osteoporosis type: age-related Presence of current pathological fracture: without current pathological fracture Qualified Codes: M81.0 - Age-related osteoporosis without current pathological fracture Result Diagram: 02/17/19 0535 02/17/19 0535 Results 24hrs Laboratory Tests Test 02/18/19 13:21 02/18/19 17:08 02/18/19 20:34 02/19/19 01:46 Bedside Glucose 114 212 295 H 189 Test 02/19/19 05:54 02/19/19 08:02 Bedside Glucose 176 201 Subjective 24 Hr Interval Summary Free Text/Dictation Patient reports that her legs hurt a little bit today and she is tired. No known further seizure activity Constitutional: no complaints (Eyes fevers chills or sweats) Respiratory: no complaints Cardiovascular: no complaints Gastrointestinal: no complaints Genitourinary: no complaints Neurologic: no complaints Exam/Review of Systems Exam Vitals Vital Signs Date Temp Pulse Resp B/P (MAP) Pulse Ox O2 O2 Flow FiO2 Time Delivery Rate 02/19/19 70 08:00 02/19/19 97.7 20 162/71 98 07:39 (101) 02/18/19 Nasal 2.0 20:00 Cannula Intake and Output 02/18/19 02/18/19 02/19/19 1515:00 23:00 07:00 IntakeIntake Total 250 ml 300 ml OutputOutput Total 2400 ml BalanceBalance -2150 ml 300 ml Constitutional: alert, oriented Neck: supple, non-tender Respiratory: clear to auscultation, normal air movement Cardiovascular: regular rate and rhythm, nl pulses Gastrointestinal: soft, nl liver, spleen, non-tender Results Results 24hrs Laboratory Tests Test 02/18/19 13:21 02/18/19 17:08 02/18/19 20:34 02/19/19 01:46 Bedside Glucose 114 212 295 H 189 Test 02/19/19 05:54 02/19/19 08:02 Bedside Glucose 176 201 Medications Medication Current Medications IV Flush (NS 3 ml) 3 ml PER PROTOCOL IV ; Start 02/15/19 at 20:30 Ondansetron HCl (Zofran Inj) 4 mg Q6H PRN IV NAUSEA/VOMITING Last administered on 02/18/19at 06:21; Admin Dose 4 MG; Start 02/15/19 at 20:30 Acetaminophen (Tylenol Tab) 650 mg Q6H PRN PO .PAIN 1-3 OR TEMP; Start 02/15/19 at 20:30 Docusate Sodium (Colace) 100 mg Q12H PRN PO .CONSTIPATION; Start 02/15/19 at 20:30 Bisacodyl (Dulcolax) 5 mg DAILY PRN PO .CONSTIPATION; Start 02/15/19 at 20:30 Heparin Sodium (Porcine) (Heparin (5000 Units/1ml)) 5,000 unit Q8 SC Last administered on 02/19/19at 05:40; Admin Dose 5,000 UNIT; Start 02/15/19 at 22:00 Allopurinol (Zyloprim) 300 mg DAILY PO Last administered on 02/19/19at 08:13; Admin Dose 300 MG; Start 02/16/19 at 09:00 Atorvastatin Calcium (Lipitor) 40 mg QHS PO Last administered on 02/18/19at 21:26; Admin Dose 40 MG; Start 02/16/19 at 21:00 Clonidine (Catapres) 0.1 mg BID PO Last administered on 02/19/19at 08:14; Admin Dose 0.1 MG; Start 02/16/19 at 09:00 Clopidogrel Bisulfate (plaVIX) 75 mg DAILY PO Last administered on 02/19/19at 08:13; Admin Dose 75 MG; Start 02/16/19 at 09:00 Ondansetron HCl (Zofran Tab) 4 mg Q6H PRN PO NAUSEA AND/OR VOMITING; Start 02/15/19 at 21:30 Hydralazine HCl (Apresoline) 10 mg Q6H PRN IV ELEVATED BLOOD PRESSURE Last administered on 02/15/19at 22:21; Admin Dose 10 MG; Start 02/15/19 at 21:30 Fish Oil (Fish Oil) 2,000 mg BID PO Last administered on 02/19/19 08:13; Admin Dose 2,000 MG; Start 02/16/19 at 09:00 Cholecalciferol (Vitamin D) 2,000 unit DAILY PO Last administered on 02/19/19 08:13; Admin Dose 2,000 UNIT; Start 02/16/19 at 09:00 Losartan Potassium (Cozaar) 100 mg DAILY PO Last administered on 02/19/19at 08:14; Admin Dose 100 MG; Start 02/16/19 at 11:30 Amlodipine Besylate (Norvasc) 10 mg DAILY PO Last administered on 02/19/19 08:13; Admin Dose 10 MG; Start 02/15/19 at 23:30 Miscellaneous Information 1 ea NOTE XX ; Start 02/15/19 at 23:45 Glucose (Glutose) 15 gm Q15M PRN PO DECREASED GLUCOSE; Start 02/15/19 at 23:45 Glucose (Glutose) 22.5 gm Q15M PRN PO DECREASED GLUCOSE; Start 02/15/19 at 23:45 Dextrose (D50w Syringe) 25 ml Q15M PRN IV DECREASED GLUCOSE; Start 02/15/19 at 23:45 Dextrose (D50w Syringe) 50 ml Q15M PRN IV DECREASED GLUCOSE; Start 02/15/19 at 23:45 Glucagon (Glucagen) 1 mg Q15M PRN IM DECREASED GLUCOSE; Start 02/15/19 at 23:45 Glucose (Glutose) 15 gm Q15M PRN BUCCAL DECREASED GLUCOSE; Start 02/15/19 at 23:45 Diagnostic Test (Pha) (Accu-Chek) 1 ea 02 XX Last administered on 02/19/19at 02:05; Admin Dose 1 EA; Start 02/16/19 at 02:00 Vancomycin HCl (Vanco Iv Per Pharmacy) VANCOMYCIN PER PHARMACY PER PROTOCOL XX ; Start 02/16/19 at 05:00 Ciprofloxacin/ Dextrose 200 ml @ 200 mls/hr Q24H IVPB Last administered on 02/19/19 05:38; Admin Dose 200 MLS/HR; Start 02/16/19 at 05:00 Metronidazole 100 ml @ 100 mls/hr Q8 IVPB Last administered on 02/19/19 05:38; Admin Dose 100 MLS/HR; Start 02/16/19 at 06:00 Insulin Aspart (Novolog Insulin Pen) NOVOLOG *MILD* ALGORITHM Q4 SC Last administered on 02/19/19 08:06; Admin Dose 2 UNIT; Start 02/16/19 at 13:00 Heparin Sodium (Porcine) (Heparin (1000 Units/ml)) 4,000 unit AFTER DIALYSIS CATHETER ; Start 02/16/19 at 15:30 Albumin Human 100 ml @ 100 mls/hr WITH DIALYSIS PRN IV SBP <90 DURING D IALYSIS; Start 02/16/19 at 15:30 Sodium Chloride (NS) -To prime the dialy... DIRECTED FOR HD PRN IV HD; Start 02/16/19 at 15:30 Divalproex Sodium (Depakote) 250 mg TID PO Last administered on 02/19/19 08:13; Admin Dose 250 MG; Start 02/18/19 at 09:00 Lidocaine (Xylocaine 1% (Mdv) 20 ml) 1 ml WITH DIALYSIS PRN INJ PRIOR TO CANULLATION/HD Last administered on 02/18/19 12:28; Admin Dose 1 ML; Start 02/18/19 at 11:30 WILLIAM LOCKETT MD Feb 19, 2019 11:31
[2019-02-19] MEDS ORDERED: DOXAZOSIN 1 MG TAB PO ONE (12:00)
--- NOTE | 2019-02-19 17:26 | CONS ---
Assessment/Plan Assessment/Plan Assessment/Plan (Daily) - End-stage renal disease:HD today - hemodialysis Wednesday. - Avoid nephrotoxic agents - Generalized tremors/rigors: Etiology is unclear at the current time. - Neuro follows - sp EEG - Near syncope: - carotid Doppler ultrasound- fu - Diabetes mellitus - Hypertension - Hyperlipidemia: -Possible CAD: Continue statin, Plavix Further treatment strategy will be implemented as per the clinical course. Patient seen in collaboration with Dr Fadia Hudson Consultation Date/Type/Reason Admit Date/Time Feb 17, 2019 at 3:21 pm Initial Consult Date Type of Consult NEPHROLOGY Reason for Consultation ESRD on HD Requesting Provider: CARLOS FLEMING MD Date/Time of Note DATE: 02/19/19 TIME: 17:25 24 HR Interval Summary Free Text/Dictation c/o tremors today daughter at bed side- all Qs answered. HD Dw staff Detailed Summary Eyes: no complaints ENT: no complaints Respiratory: no complaints Cardiovascular: no complaints Gastrointestinal: no complaints Genitourinary: no complaints Musculoskeletal: other (general weakness) Neurologic: no complaints Endocrine: no complaints Immunologic: no complaints Exam/Review of Systems Exam Vitals Vital Signs Date Temp Pulse Resp B/P (MAP) Pulse Ox O2 O2 Flow FiO2 Time Delivery Rate 02/19/19 65 16:00 02/19/19 98.2 20 139/63 97 15:58 (88) 02/18/19 Nasal 2.0 20:00 Cannula Intake and Output 02/18/19 02/18/19 02/19/19 1515:00 23:00 07:00 IntakeIntake Total 250 ml 300 ml OutputOutput Total 2400 ml BalanceBalance -2150 ml 300 ml Constitutional: alert, well developed Psych: nl mood/affect Eyes: nl lids, nl sclera ENMT: nl external ears & nose Neck: non-tender Respiratory: diminished breath sounds (bilateral at bases) Cardiovascular: nl pulses, other (s1s2) Gastrointestinal: soft, non-tender Musculoskeletal: nl extremities to inspection Extremities: normal pulses Neurological: nl speech Lymph: nontender Results Result Diagram: 02/17/19 0535 02/17/1935 Results 24hrs Laboratory Tests Test 02/18/19 20:34 02/19/19 01:46 02/19/19 05:54 02/19/19 08:02 Bedside Glucose 295 H 189 176 201 Test 02/19/19 12:33 02/19/19 17:10 Bedside Glucose 186 208 Medications Medication Current Medications IV Flush (NS 3 ml) 3 ml PER PROTOCOL IV ; Start 02/15/19 at 20:30 Ondansetron HCl (Zofran Inj) 4 mg Q6H PRN IV NAUSEA/VOMITING Last administered on 02/18/19at 06:21; Admin Dose 4 MG; Start 02/15/19 at 20:30 Acetaminophen (Tylenol Tab) 650 mg Q6H PRN PO .PAIN 1-3 OR TEMP; Start 02/15/19 at 20:30 Docusate Sodium (Colace) 100 mg Q12H PRN PO .CONSTIPATION; Start 02/15/19 at 20:30 Bisacodyl (Dulcolax) 5 mg DAILY PRN PO .CONSTIPATION; Start 02/15/19 at 20:30 Heparin Sodium (Porcine) (Heparin (5000 Units/1ml)) 5,000 unit Q8 SC Last administered on 02/19/19at 15:41; Admin Dose 5,000 UNIT; Start 02/15/19 at 22:00 Allopurinol (Zyloprim) 300 mg DAILY PO Last administered on 02/19/19at 08:13; Admin Dose 300 MG; Start 02/16/19 at 09:00 Atorvastatin Calcium (Lipitor) 40 mg QHS PO Last administered on 02/18/19at 21:26; Admin Dose 40 MG; Start 02/16/19 at 21:00 Clonidine (Catapres) 0.1 mg BID PO Last administered on 02/19/19at 08:14; Admin Dose 0.1 MG; Start 02/16/19 at 09:00 Clopidogrel Bisulfate (plaVIX) 75 mg DAILY PO Last administered on 02/19/19at 08:13; Admin Dose 75 MG; Start 02/16/19 at 09:00 Ondansetron HCl (Zofran Tab) 4 mg Q6H PRN PO NAUSEA AND/OR VOMITING; Start 02/15/19 at 21:30 Hydralazine HCl (Apresoline) 10 mg Q6H PRN IV ELEVATED BLOOD PRESSURE Last administered on 02/15/19at 22:21; Admin Dose 10 MG; Start 02/15/19 at 21:30 Fish Oil (Fish Oil) 2,000 mg BID PO Last administered on 02/19/19at 08:13; Admin Dose 2,000 MG; Start 02/16/19 at 09:00 Cholecalciferol (Vitamin D) 2,000 unit DAILY PO Last administered on 02/19/19at 08:13; Admin Dose 2,000 UNIT; Start 02/16/19 at 09:00 Losartan Potassium (Cozaar) 100 mg DAILY PO Last administered on 02/19/19at 08:14; Admin Dose 100 MG; Start 02/16/19 at 11:30 Amlodipine Besylate (Norvasc) 10 mg DAILY PO Last administered on 02/19/19at 08:13; Admin Dose 10 MG; Start 02/15/19 at 23:30 Miscellaneous Information 1 ea NOTE XX ; Start 02/15/19 at 23:45 Glucose (Glutose) 15 gm Q15M PRN PO DECREASED GLUCOSE; Start 02/15/19 at 23:45 Glucose (Glutose) 22.5 gm Q15M PRN PO DECREASED GLUCOSE; Start 02/15/19 at 23:45 Dextrose (D50w Syringe) 25 ml Q15M PRN IV DECREASED GLUCOSE; Start 02/15/19 at 23:45 Dextrose (D50w Syringe) 50 ml Q15M PRN IV DECREASED GLUCOSE; Start 02/15/19 at 23:45 Glucagon (Glucagen) 1 mg Q15M PRN IM DECREASED GLUCOSE; Start 02/15/19 at 23:45 Glucose (Glutose) 15 gm Q15M PRN BUCCAL DECREASED GLUCOSE; Start 02/15/19 at 23:45 Diagnostic Test (Pha) (Accu-Chek) 1 ea 02 XX Last administered on 02/19/19at 02:05; Admin Dose 1 EA; Start 02/16/19 at 02:00 Vancomycin HCl (Vanco Iv Per Pharmacy) VANCOMYCIN PER PHARMACY PER PROTOCOL XX ; Start 02/16/19 at 05:00 Ciprofloxacin/ Dextrose 200 ml @ 200 mls/hr Q24H IVPB Last administered on 02/19/19at 05:38; Admin Dose 200 MLS/HR; Start 02/16/19 at 05:00 Metronidazole 100 ml @ 100 mls/hr Q8 IVPB Last administered on 02/19/19at 15:34; Admin Dose 100 MLS/HR; Start 02/16/19 at 06:00 Insulin Aspart (Novolog Insulin Pen) NOVOLOG *MILD* ALGORITHM Q4 SC Last administered on 02/19/19at 12:42; Admin Dose 2 UNIT; Start 02/16/19 at 13:00 Heparin Sodium (Porcine) (Heparin (1000 Units/ml)) 4,000 unit AFTER DIALYSIS CATHETER ; Start 02/16/19 at 15:30 Albumin Human 100 ml @ 100 mls/hr WITH DIALYSIS PRN IV SBP <90 DURING DIALYSIS; Start 02/16/19 at 15:30 Sodium Chloride (NS) -To prime the dialy... DIRECTED FOR HD PRN IV HD; Start 02/16/19 at 15:30 Divalproex Sodium (Depakote) 250 mg TID PO Last administered on 02/19/19at 12:35; Admin Dose 250 MG; Start 02/18/19 at 09:00 Lidocaine (Xylocaine 1% (Mdv) 20 ml) 1 ml WITH DIALYSIS PRN INJ PRIOR TO CANULLATION/HD Last administered on 02/18/19at 12:28; Admin Dose 1 ML; Start 02/18/19 at 11:30 Doxazosin Mesylate (Cardura) 2 mg HS PO ; Start 02/19/19 at 21:00 ELIZABETH HUNT Feb 19, 2019 17:26
[2019-02-19] MEDS: ATORVASTATIN 40 MG TAB PO SCH (21:39)
[2019-02-19] MEDS: DOXAZOSIN 2 MG TAB PO SCH (21:46)
[2019-02-20] VITALS (11 sets, daily range): BP systolic 131–152; BP diastolic 59–79; PULSE 56–69; RESP 16–18
[2019-02-20] MEDS: INSULIN ASPART [NOVOLOG] 3 ML PEN SC SCH ×6 (01:00→22:06)
[2019-02-20] MEDS: ACCUCHECK AT 2AM (Patients on SS coverage) XX SCH (02:00)
[2019-02-20] MEDS: CIPROFLOXACIN 400MG/D5W 200 ML IVPB SCH (05:19)
[2019-02-20] MEDS: metroNIDAZOLE 500 MG/NS (PMX) 100 ML IVPB SCH ×2 (05:19→13:10)
[2019-02-20] MEDS: HEPARIN 5,000 UNIT/1 ML VIAL SC SCH ×3 (05:21→22:48)
[2019-02-20] MEDS: FISH OIL 1,000 MG CAP PO SCH ×2 (08:43→22:09)
[2019-02-20] MEDS: CLOPIDOGREL 75 MG TAB PO SCH (08:43)
[2019-02-20] MEDS: CHOLECALCIFEROL 2,000 UNIT CAP PO SCH (08:43)
[2019-02-20] MEDS: LOSARTAN 50 MG TAB PO SCH (08:43)
[2019-02-20] MEDS: DIVALPROEX (EC) 250 MG TAB PO SCH ×2 (08:44→12:30)
[2019-02-20] MEDS: ALLOPURINOL 300 MG TAB PO SCH (08:44)
[2019-02-20] MEDS: AMLODIPINE 10 MG TAB PO SCH (08:44)
--- NOTE | 2019-02-20 14:38 | CONS ---
Assessment/Plan Assessment/Plan Hospital Course 73 F c/ ESRD on HD, and other comorbidities, who presents for evaluation of episodic shaking w/ dizziness...for which neurology is consulted.. On neurologic examination, she had a stereotyped episode, which appeared to be nonphysiologic.. EEG was, though, notable for frequent R frontal epileptiform discharges.. Thyroid studies are wnl HCT is without acute intracranial pathology. P: Continue maintenance depakote; titrate PRN to goal level 50-100 Ativan iv prn prolonged seizure or cluster Consider alternative abx class to fluoroquinolones, which are known to precipitate seizures.. Other medical management and supportive care per primary Will follow clinically Consultation Date/Type/Reason Admit Date/Time Feb 17, 2019 at 15:21 Type of Consult Neurology Reason for Consultation tremors, generalized weakness Requesting Provider: CARLOS FLEMING MD Date/Time of Note DATE: 02/20/19 TIME: 14:37 24 HR Interval Summary Free Text/Dictation Continues acute care. No further seizure episodes or tremors reported. Exam Vital Signs Vitals Vital Signs Date Temp Pulse Resp B/P (MAP) Pulse Ox O2 O2 Flow FiO2 Time Delivery Rate 02/20/19 63 12:00 02/20/19 98.7 16 131/59 96 11:39 (83) 02/19/19 Nasal 2.0 20:00 Cannula Intake and Output 02/19/19 02/19/19 02/20/19 1515:00 23:00 07:00 IntakeIntake Total 800 ml 200 ml BalanceBalance 800 ml 200 ml Exam PE: Gen Appearance: No Apparent Distress HEENT: Normocephalic Cardiovascular: Regular rate Abdomen: Soft Extremities: Dry NE: The patient was awake and alert; grossly oriented. Speech was hypophonic. Able to follow simple axial and appendicular commands. Cranial nerve examination was limited by mental status. Pupils were equal and reactive to light. There was no afferent pupillary defect. Funduscopic examination was limited. Face was grossly symmetric, w/ present corneal and cough reflexes. Tone was normal. Muscle bulk was normal. No fasciculations were noted. The patient moved her extremities spontaneously, symmetrically. Coordination and gait testing was limited by mental status. Arm and leg reflexes were 2+ and symmetric. Logan's sign was absent. Plantar responses were flexor. EMILIE DAWN [employer]ACHINE TESTER Feb 20, 2019 14:38 GALINA ZAMORANO Feb 20, 2019 19:10
[2019-02-20] MEDS ORDERED: VALPROATE INJ 500 MG in SOD CHLORIDE 0.9% 50 ML IVPB ONE (15:30)
--- NOTE | 2019-02-20 15:52 | PN ---
Date/Time of Note Date/Time of Note DATE: 02/20/19 TIME: 15:50 Assessment/Plan VTE Prophylaxis Risk score (from Nsg)>0 risk: 5 SCD applied (from Ns): Yes SCD contraindicated: low risk/ambulating Pharmacological prophylaxis: LMWH Lines/Catheters IV Catheter Type (from Nrs): Saline Lock Urinary Cath still in place: No Assessment/Plan Hospital Course Assessment and plan 1. Altered mental status tremors suspected new onset seizures, stable continue medical management. 2. New-onset seizure disorder, follow-up with neurology 3. Type 2 diabetes 4. Metabolic syndrome 5. Chronic hypertension 6. Chronic dyslipidemia 7. Anemia stable 8. CAD on Plavix? 9. Bulb carotid plaque disease 55% 10. ESRD on dialysis 11. Failure to thrive 12. UTI? Will taper off antibiotics Subjective: No further seizures. Awake alert but feels weak Objective: Vital signs stable sinus rhythm Physical exam No pallor droop adenopathy Regular no m/r/g Clear Benign No edema Neuro grossly nonfocal Result Diagram: 02/17/1935 02/17/19534 Results 24hrs Laboratory Tests Test 02/19/19 17:10 02/19/19 20:43 02/20/19 03:01 02/20/19 05:14 Bedside Glucose 208 194 174 134 Test 02/20/19 05:32 02/20/19 08:41 02/20/19 12:04 Valproic Acid 45 L (Depakene) Level Bedside Glucose 143 195 Exam/Review of Systems Exam Vitals Vital Signs Date Temp Pulse Resp B/P (MAP) Pulse Ox O2 O2 Flow FiO2 Time Delivery Rate 02/20/19 98.3 56 16 152/66 96 15:34 (94) 02/19/19 Nasal 2.0 20:00 Cannula Intake and Output 02/19/19 02/19/19 02/20/19 1515:00 23:00 07:00 IntakeIntake Total 800 ml 200 ml BalanceBalance 800 ml 200 ml Results Results 24hrs Laboratory Tests Test 02/19/19 17:10 02/19/19 20:43 02/20/19 03:01 02/20/19 05:14 Bedside Glucose 208 194 174 134 Test 02/20/19 05:32 02/20/19 08:41 02/20/19 12:04 Valproic Acid 45 L (Depakene) Level Bedside Glucose 143 195 Medications Medication Current Medications IV Flush (NS 3 ml) 3 ml PER PROTOCOL IV ; Start 02/15/19 at 20:30 Ondansetron HCl (Zofran Inj) 4 mg Q6H PRN IV NAUSEA/VOMITING Last administered on 02/18/19 06:21; Admin Dose 4 MG; Start 02/15/19 at 20:30 Acetaminophen (Tylenol Tab) 650 mg Q6H PRN PO .PAIN 1-3 OR TEMP; Start 02/15/19 at 20:30 Docusate Sodium (Colace) 100 mg Q12H PRN PO .CONSTIPATION; Start 02/15/19 at 20:30 Bisacodyl (Dulcolax) 5 mg DAILY PRN PO .CONSTIPATION; Start 02/15/19 at 20:30 Heparin Sodium (Porcine) (Heparin (5000 Units/1ml)) 5,000 unit Q8 SC Last administered on 02/20/19 13:16; Admin Dose 5,000 UNIT; Start 02/15/19 at 22:00 Allopurinol (Zyloprim) 300 mg DAILY PO Last administered on 02/20/19 08:44; Admin Dose 300 MG; Start 02/16/19 at 09:00 Atorvastatin Calcium (Lipitor) 40 mg QHS PO Last administered on 02/19/19 21:39; Admin Dose 40 MG; Start 02/16/19 at 21:00 Clonidine (Catapres) 0.1 mg BID PO Last administered on 02/20/19 08:43; Admin Dose 0.1 MG; Start 02/16/19 at 09:00 Clopidogrel Bisulfate (plaVIX) 75 mg DAILY PO Last administered on 02/20/19 08 :43; Admin Dose 75 MG; Start 02/16/19 at 09:00 Ondansetron HCl (Zofran Tab) 4 mg Q6H PRN PO NAUSEA AND/OR VOMITING; Start 02/15/19 at 21:30 Hydralazine HCl (Apresoline) 10 mg Q6H PRN IV ELEVATED BLOOD PRESSURE Last administered on 02/15/19 22:21; Admin Dose 10 MG; Start 02/15/19 at 21:30 Fish Oil (Fish Oil) 2,000 mg BID PO Last administered on 02/20/19 08:43; Admin Dose 2,000 MG; Start 02/16/19 at 09:00 Cholecalciferol (Vitamin D) 2,000 unit DAILY PO Last administered on 02/20/19at 08:43; Admin Dose 2,000 UNIT; Start 02/16/19 at 09:00 Losartan Potassium (Cozaar) 100 mg DAILY PO Last administered on 02/20/19at 08:43; Admin Dose 100 MG; Start 02/16/19 at 11:30 Amlodipine Besylate (Norvasc) 10 mg DAILY PO Last administered on 02/20/19at 08:44; Admin Dose 10 MG; Start 02/15/19 at 23:30 Miscellaneous Information 1 ea NOTE XX ; Start 02/15/19 at 23:45 Glucose (Glutose) 15 gm Q15M PRN PO DECREASED GLUCOSE; Start 02/15/19 at 23:45 Glucose (Glutose) 22.5 gm Q15M PRN PO DECREASED GLUCOSE; Start 02/15/19 at 23:45 Dextrose (D50w Syringe) 25 ml Q15M PRN IV DECREASED GLUCOSE; Start 02/15/19 at 23:45 Dextrose (D50w Syringe) 50 ml Q15M PRN IV DECREASED GLUCOSE; Start 02/15/19 at 23:45 Glucagon (Glucagen) 1 mg Q15M PRN IM DECREASED GLUCOSE; Start 02/15/19 at 23:45 Glucose (Glutose) 15 gm Q15M PRN BUCCAL DECREASED GLUCOSE; Start 02/15/19 at 23:45 Diagnostic Test (Pha) (Accu-Chek) 1 ea 02 XX Last administered on 02/20/19at 02:00; Admin Dose 1 EA; Start 02/16/19 at 02:00 Vancomycin HCl (Vanco Iv Per Pharmacy) VANCOMYCIN PER PHARMACY PER PROTOCOL XX ; Start 02/16/19 at 05:00 Ciprofloxacin/ Dextrose 200 ml @ 200 mls/hr Q24H IVPB Last administered on 02/20/19at 05:19; Admin Dose 200 MLS/HR; Start 02/16/19 at 05:00 Metronidazole 100 ml @ 100 mls/hr Q8 IVPB Last administered on 02/20/19at 13:10; Admin Dose 100 MLS/HR; Start 02/16/19 at 06:00 Heparin Sodium (Porcine) (Heparin (1000 Units/ml)) 4,000 unit AFTER DIALYSIS CATHETER ; Start 02/16/19 at 15:30 Albumin Human 100 ml @ 100 mls/hr WITH DIALYSIS PRN IV SBP <90 DURING DIALYSIS; Start 02/16/19 at 15:30 Sodium Chloride (NS) -To prime the dialy... DIRECTED FOR HD PRN IV HD; Start 02/16/19 at 15:30 Lidocaine (Xylocaine 1% (Mdv) 20 ml) 1 ml WITH DIALYSIS PRN INJ PRIOR TO CANULLATION/HD Last administered on 02/18/19at 12:28; Admin Dose 1 ML; Start 02/18/19 at 11:30 Doxazosin Mesylate (Cardura) 2 mg HS PO Last administered on 02/19/19at 21:46; Admin Dose 2 MG; Start 02/19/19 at 21:00 Miscellaneous Information (*Rx Drug Level Order Reminder*) RANDOM VANCOMYCIN LEVEL 4... 0500 ONCE XX ; Start 02/21/19 at 05:00; Stop 02/21/19 at 05:01 Divalproex Sodium (Depakote) 500 mg BID PO ; Start 02/20/19 at 21:00; Status UNV Valproate Sodium 500 mg/Sodium Chloride 55 ml @ 55 mls/hr ONCE ONCE IVPB ; Start 02/20/19 at 15:30; Stop 02/20/19 at 16:29; Status UNV Insulin Aspart (Novolog Insulin Pen) NOVOLOG *MILD* ALGORITHM AC MEALS AND BEDTIME SC ; Start 02/20/19 at 17:30; Status UNV CRIS ROBINS MD Feb 20, 2019 15:52
[2019-02-20] MEDS: POLYETHYLENE GLYCOL 17 GM PACKET PO SCH ×2 (16:53→21:00)
[2019-02-20] MEDS: SENNA/DOCUSATE NA (8.6MG/50MG) TAB PO SCH (16:53)
--- NOTE | 2019-02-20 18:06 | CONS ---
Assessment/Plan Assessment/Plan Assessment/Plan (Daily) - End-stage renal disease on TTS schedule - Plan for HD tomorrow then we will keep her no TTS schedule - Generalized tremors/rigors: Etiology is unclear at the current time. - Neuro follows - sp EEG - Near syncope: - carotid Doppler ultrasound- fu - Diabetes mellitus - Hypertension - Hyperlipidemia: -Possible CAD: Continue statin, Plavix Consultation Date/Type/Reason Admit Date/Time Feb 17, 2019 at 15:21 Initial Consult Date Requesting Provider: CARLOS FLEMING MD Date/Time of Note DATE: 02/20/19 TIME: 18:05 Exam/Review of Systems Exam Vitals Vital Signs Date Temp Pulse Resp B/P (MAP) Pulse Ox O2 O2 Flow FiO2 Time Delivery Rate 02/20/19 63 16:00 02/20/19 98.3 16 152/66 96 15:34 (94) 02/19/19 Nasal 2.0 20:00 Cannula Intake and Output 02/19/19 02/19/19 02/20/19 1515:00 23:00 07:00 IntakeIntake Total 800 ml 200 ml BalanceBalance 800 ml 200 ml Exam Constitutional: alert, well developed Psych: nl mood/affect Eyes: nl lids, nl sclera ENMT: nl external ears & nose Neck: non-tender Respiratory: diminished breath sounds (bilateral at bases) Cardiovascular: nl pulses, other (s1s2) Gastrointestinal: soft, non-tender Musculoskeletal: nl extremities to inspection Extremities: normal pulses Neurological: nl speech Lymph: nontender Results Result Diagram: 02/17/19 0535 02/17/19 0535 Results 24hrs Laboratory Tests Test 02/19/19 20:43 02/20/19 03:01 02/20/19 05:14 02/20/19 05:32 Bedside Glucose 194 174 134 Valproic Acid 45 L (Depakene) Level Test 02/20/19 08:41 02/20/19 12:04 02/20/19 16:55 Bedside Glucose 143 195 191 Medications Medication Current Medications IV Flush (NS 3 ml) 3 ml PER PROTOCOL IV ; Start 02/15/19 at 20:30 Ondansetron HCl (Zofran Inj) 4 mg Q6H PRN IV NAUSEA/VOMITING Last administered on 02/18/19at 06:21; Admin Dose 4 MG; Start 02/15/19 at 20:30 Acetaminophen (Tylenol Tab) 650 mg Q6H PRN PO .PAIN 1-3 OR TEMP; Start 02/15/19 at 20:30 Docusate Sodium (Colace) 100 mg Q12H PRN PO .CONSTIPATION; Start 02/15/19 at 20:30 Bisacodyl (Dulcolax) 5 mg DAILY PRN PO .CONSTIPATION; Start 02/15/19 at 20:30 Heparin Sodium (Porcine) (Heparin (5000 Units/1ml)) 5,000 unit Q8 SC Last administered on 02/20/19 13:16; Admin Dose 5,000 UNIT; Start 02/15/19 at 22:00 Allopurinol (Zyloprim) 300 mg DAILY PO Last administered on 02/20/19 08:44; Admin Dose 300 MG; Start 02/16/19 at 09:00 Atorvastatin Calcium (Lipitor) 40 mg QHS PO Last administered on 02/19/19 21:39; Admin Dose 40 MG; Start 02/16/19 at 21:00 Clonidine (Catapres) 0.1 mg BID PO Last administered on 02/20/19 08:43; Admin Dose 0.1 MG; Start 02/16/19 at 09:00 Clopidogrel Bisulfate (plaVIX) 75 mg DAILY PO Last administered on 02/20/19 08:43; Admin Dose 75 MG; Start 02/16/19 at 09:00 Ondansetron HCl (Zofran Tab) 4 mg Q6H PRN PO NAUSEA AND/OR VOMITING; Start 02/15/19 at 21:30 Hydralazine HCl (Apresoline) 10 mg Q6H PRN IV ELEVATED BLOOD PRESSURE Last adm inistered on 02/15/19 22:21; Admin Dose 10 MG; Start 02/15/19 at 21:30 Fish Oil (Fish Oil) 2,000 mg BID PO Last administered on 02/20/19 08:43; Admin Dose 2,000 MG; Start 02/16/19 at 09:00 Cholecalciferol (Vitamin D) 2,000 unit DAILY PO Last administered on 02/20/19 08:43; Admin Dose 2,000 UNIT; Start 02/16/19 at 09:00 Losartan Potassium (Cozaar) 100 mg DAILY PO Last administered on 4/22/19at 08:43; Admin Dose 100 MG; Start 02/16/19 at 11:30 Amlodipine Besylate (Norvasc) 10 mg DAILY PO Last administered on 02/20/19at 08:44; Admin Dose 10 MG; Start 02/15/19 at 23:30 Miscellaneous Information 1 ea NOTE XX ; Start 02/15/19 at 23:45 Glucose (Glutose) 15 gm Q15M PRN PO DECREASED GLUCOSE; Start 02/15/19 at 23:45 Glucose (Glutose) 22.5 gm Q15M PRN PO DECREASED GLUCOSE; Start 02/15/19 at 2 3:45 Dextrose (D50w Syringe) 25 ml Q15M PRN IV DECREASED GLUCOSE; Start 02/15/19 at 23:45 Dextrose (D50w Syringe) 50 ml Q15M PRN IV DECREASED GLUCOSE; Start 02/15/19 at 23:45 Glucagon (Glucagen) 1 mg Q15M PRN IM DECREASED GLUCOSE; Start 02/15/19 at 23:45 Glucose (Glutose) 15 gm Q15M PRN BUCCAL DECREASED GLUCOSE; Start 02/15/19 at 23:45 Diagnostic Test (Pha) (Accu-Chek) 1 ea 02 XX Last administered on 02/20/19at 02:00; Admin Dose 1 EA; Start 02/16/19 at 02:00 Heparin Sodium (Porcine) (Heparin (1000 Units/ml)) 4,000 unit AFTER DIALYSIS CATHETER ; Start 02/16/19 at 15:30 Albumin Human 100 ml @ 100 mls/hr WITH DIALYSIS PRN IV SBP <90 DURING DIALYSIS; Start 02/16/19 at 15:30 Sodium Chloride (NS) -To prime the dialy... DIRECTED FOR HD PRN IV HD; Start 02/16/19 at 15:30 Lidocaine (Xylocaine 1% (Mdv) 20 ml) 1 ml WITH DIALYSIS PRN INJ PRIOR TO CANULLATION/HD Last administered on 02/18/19at 12:28; Admin Dose 1 ML; Start 02/18/19 at 11:30 Doxazosin Mesylate (Cardura) 2 mg HS PO Last administered on 02/19/19at 21:46; Admin Dose 2 MG; Start 02/19/19 at 21:00 Divalproex Sodium (Depakote) 500 mg BID PO ; Start 02/20/19 at 21:00 Insulin Aspart (Novolog Insulin Pen) NOVOLOG *MILD* ALGORITHM AC MEALS AND BEDTIME SC Last administered on 02/20/19at 17:03; Admin Dose 2 UNIT; Start 02/20/19 at 17:30 Senna/Docusate Sodium (Senokot-S) 2 tab DAILY PO Last administered on 02/20/19at 16:53; Admin Dose 2 TAB; Start 02/20/19 at 16:00 Polyethylene Glycol (Miralax) 17 gm BID PO Last administered on 02/20/19at 16:53; Admin Dose 17 GM; Start 02/20/19 at 16:00 KIA GERARDO MD Feb 20, 2019 18:06
[2019-02-20] MEDS: DIVALPROEX (EC) 500 MG TAB PO SCH (22:08)
[2019-02-20] MEDS: DOXAZOSIN 2 MG TAB PO SCH (22:09)
[2019-02-20] MEDS: ATORVASTATIN 40 MG TAB PO SCH (22:09)
[2019-02-21] VITALS (25 sets, daily range): BP systolic 104–173; BP diastolic 46–71; PULSE 60–81; RESP 16–18
[2019-02-21] MEDS: ACCUCHECK AT 2AM (Patients on SS coverage) XX SCH (02:56)
[2019-02-21] MEDS: HEPARIN 5,000 UNIT/1 ML VIAL SC SCH ×2 (06:11→13:56)
[2019-02-21] MEDS: INSULIN ASPART [NOVOLOG] 3 ML PEN SC SCH ×3 (07:00→17:29)
[2019-02-21] MEDS: LOSARTAN 50 MG TAB PO SCH (08:50)
[2019-02-21] MEDS: FISH OIL 1,000 MG CAP PO SCH (08:50)
[2019-02-21] MEDS: DIVALPROEX (EC) 500 MG TAB PO SCH ×2 (08:50→13:59)
[2019-02-21] MEDS: POLYETHYLENE GLYCOL 17 GM PACKET PO SCH (08:50)
[2019-02-21] MEDS: CHOLECALCIFEROL 2,000 UNIT CAP PO SCH (08:50)
[2019-02-21] MEDS: ALLOPURINOL 300 MG TAB PO SCH (08:50)
[2019-02-21] MEDS: SENNA/DOCUSATE NA (8.6MG/50MG) TAB PO SCH (08:50)
[2019-02-21] MEDS: AMLODIPINE 10 MG TAB PO SCH (08:50)
[2019-02-21] MEDS: LIDOCAINE 1% (MDV) 20 ML INJ INJ PRN (09:38)
--- NOTE | 2019-02-21 11:18 | CONS ---
Assessment/Plan Assessment/Plan Assessment/Plan (Daily) - End-stage renal disease on TTS schedule - Plan for HD tomorrow then we will keep her no TTS schedule - Generalized tremors/rigors: Etiology is unclear at the current time. - Neuro follows - sp EEG - Near syncope: - carotid Doppler ultrasound- fu - Diabetes mellitus - Hypertension - Hyperlipidemia: -Possible CAD: Continue statin, Plavix Consultation Date/Type/Reason Admit Date/Time Feb 17, 2019 at 15:21 Initial Consult Date Requesting Provider: CARLOS FLEMING MD Date/Time of Note DATE: 02/21/19 TIME: 11:18 Exam/Review of Systems Exam Vitals Vital Signs Date Temp Pulse Resp B/P (MAP) Pulse Ox O2 O2 Flow FiO2 Time Delivery Rate 02/21/19 75 10:55 02/21/19 18 173/71 96 Room Air 09:55 (105) 02/21/19 97.7 07:17 02/19/19 2.0 20:00 Intake and Output 02/20/19 02/20/19 02/21/19 1515:00 23:00 07:00 IntakeIntake Total 950 ml 220 ml BalanceBalance 950 ml 220 ml Results Result Diagram: 02/21/19 0519 02/21/19 0519 Results 24hrs Laboratory Tests Test 02/20/19 12:04 02/20/19 16:55 02/20/19 21:48 02/21/19 02:55 Bedside Glucose 195 191 252 H 184 Test 02/21/19 05:19 02/21/19 08:09 White Blood Count 6.8 # Red Blood Count 3.21 L Hemoglobin 9.3 L Hematocrit 27.4 L Mean Corpuscular 85.4 Volume Mean Corpuscular 29.0 Hemoglobin Mean Corpuscular 33.9 Hemoglobin Concent Red Cell 15.6 H Distribution Width Platelet Count 230 Mean Platelet Volume 10.8 H Immature 0.300 Granulocytes % Neutrophils % 63.5 Lymphocytes % 22.0 Monocytes % 8.8 Eosinophils % 5.0 Basophils % 0.4 Nucleated Red Blood 0.0 Cells % Immature 0.020 Granulocytes # Neutrophils # 4.3 Lymphocytes # 1.5 Monocytes # 0.6 Eosinophils # 0.3 Basophils # 0.0 Nucleated Red Blood 0.0 Cells # Sodium Level 133 L Potassium Level 3.8 Chloride Level 97 Carbon Dioxide Level 22 Anion Gap 14 H Blood Urea Nitrogen 39 H Creatinine 4.95 H Est Glomerular Filtrat Rate mL/min Glucose Level 136 Calcium Level 8.3 L Phosphorus Level 6.8 H Magnesium Level 2.1 Total Bilirubin 0.1 L Direct Bilirubin 0.00 Indirect Bilirubin 0.1 Aspartate Amino 47 H Transf (AST/SGOT) Alanine 41 Aminotransferase (AL T/SGPT) Alkaline Phosphatase 81 Total Protein 6.0 L Albumin 3.0 L Globulin 3.00 Albumin/Globulin 1.00 Ratio Valproic Acid 91 (Depakene) Level Bedside Glucose 133 Medications Medication Current Medications IV Flush (NS 3 ml) 3 ml PER PROTOCOL IV ; Start 02/15/19 at 20:30 Ondansetron HCl (Zofran Inj) 4 mg Q6H PRN IV NAUSEA/VOMITING Last administered on 02/18/19at 06:21; Admin Dose 4 MG; Start 02/15/19 at 20:30 Acetaminophen (Tylenol Tab) 650 mg Q6H PRN PO .PAIN 1-3 OR TEMP; Start 02/15/19 at 20:30 Docusate Sodium (Colace) 100 mg Q12H PRN PO .CONSTIPATION; Start 02/15/19 at 20:30 Bisacodyl (Dulcolax) 5 mg DAILY PRN PO .CONSTIPATION; Start 02/15/19 at 20:30 Heparin Sodium (Porcine) (Heparin (5000 Units/1ml)) 5,000 unit Q8 SC Last a dministered on 02/21/19at 06:11; Admin Dose 5,000 UNIT; Start 02/15/19 at 22:00 Allopurinol (Zyloprim) 300 mg DAILY PO Last administered on 02/20/19at 08:44; Admin Dose 300 MG; Start 02/16/19 at 09:00 Atorvastatin Calcium (Lipitor) 40 mg QHS PO Last administered on 02/20/19 22:09; Admin Dose 40 MG; Start 02/16/19 at 21:00 Clonidine (Catapres) 0.1 mg BID PO Last administered on 02/20/19at 22:09; Admin Dose 0.1 MG; Start 02/16/19 at 09:00 Clopidogrel Bisulfate (plaVIX) 75 mg DAILY PO Last administered on 02/20/19 08:43; Admin Dose 75 MG; Start 02/16/19 at 09:00 Ondansetron HCl (Zofran Tab) 4 mg Q6H PRN PO NAUSEA AND/OR VOMITING; Start 02/15/19 at 21:30 Hydralazine HCl (Apresoline) 10 mg Q6H PRN IV ELEVATED BLOOD PRESSURE Last administered on 02/15/19at 22:21; Admin Dose 10 MG; Start 02/15/19 at 21:30 Fish Oil (Fish Oil) 2,000 mg BID PO Last administered on 02/20/19at 22:09; Admin Dose 2,000 MG; Start 02/16/19 at 09:00 Cholecalciferol (Vitamin D) 2,000 unit DAILY PO Last administered on 02/20/19at 08:43; Admin Dose 2,000 UNIT; Start 02/16/19 at 09:00 Losartan Potassium (Cozaar) 100 mg DAILY PO Last administered on 02/20/19at 08:43; Admin Dose 100 MG; Start 02/16/19 at 11:30 Amlodipine Besylate (Norvasc) 10 mg DAILY PO Last administered on 02/20/19at 08:44; Admin Dose 10 MG; Start 02/15/19 at 23:30 Miscellaneous Information 1 ea NOTE XX ; Start 02/15/19 at 23:45 Glucose (Glutose) 15 gm Q15M PRN PO DECREASED GLUCOSE; Start 02/15/19 at 23:45 Glucose (Glutose) 22.5 gm Q15M PRN PO DECREASED GLUCOSE; Start 02/15/19 at 23:45 Dextrose (D50w Syringe) 25 ml Q15M PRN IV DECREASED GLUCOSE; Start 02/15/19 at 23:45 Dextrose (D50w Syringe) 50 ml Q15M PRN IV DECREASED GLUCOSE; Start 02/15/19 at 23:45 Glucagon (Glucagen) 1 mg Q15M PRN IM DECREASED GLUCOSE; Start 02/15/19 at 23:45 Glucose (Glutose) 15 gm Q15M PRN BUCCAL DECREASED GLUCOSE; Start 02/15/19 at 23:45 Diagnostic Test (Pha) (Accu-Chek) 1 ea 02 XX Last administered on 02/21/19at 02:56; Admin Dose 1 EA; Start 02/16/19 at 02:00 Heparin Sodium (Porcine) (Heparin (1000 Units/ml)) 4,000 unit AFTER DIALYSIS CATHETER ; Start 02/16/19 at 15:30 Albumin Human 100 ml @ 100 mls/hr WITH DIALYSIS PRN IV SBP <90 DURING DIALYS IS; Start 02/16/19 at 15:30 Sodium Chloride (NS) -To prime the dialy... DIRECTED FOR HD PRN IV HD; Start 02/16/19 at 15:30 Lidocaine (Xylocaine 1% (Mdv) 20 ml) 1 ml WITH DIALYSIS PRN INJ PRIOR TO C ANULLATION/HD Last administered on 02/21/19at 09:38; Admin Dose 1 ML; Start 02/18/19 at 11:30 Doxazosin Mesylate (Cardura) 2 mg HS PO Last administered on 02/20/19 22:09; Admin Dose 2 MG; Start 02/19/19 at 21:00 Divalproex Sodium (Depakote) 500 mg BID PO Last administered on 02/20/19 22:08; Admin Dose 500 MG; Start 02/20/19 at 21:00 Insulin Aspart (Novolog Insulin Pen) NOVOLOG *MILD* ALGORITHM AC MEALS AND BEDTIME SC Last administered on 02/20/19at 22:06; Admin Dose 2 UNIT; Start 02/20/19 at 17:30 Senna/Docusate Sodium (Senokot-S) 2 tab DAILY PO Last administered on 02/20/19 16:53; Admin Dose 2 TAB; Start 02/20/19 at 16:00 Polyethylene Glycol (Miralax) 17 gm BID PO Last administered on 02/20/19 16:53; Admin Dose 17 GM; Start 02/20/19 at 16:00 KIA GERARDO MD Feb 21, 2019 11:18
[2019-02-21] MEDS: CLOPIDOGREL 75 MG TAB PO SCH (14:00)
--- NOTE | 2019-02-21 14:43 | CONS ---
Assessment/Plan Assessment/Plan Hospital Course 73 F c/ ESRD on HD, and other comorbidities, who presents for evaluation of episodic shaking w/ dizziness...for which neurology is consulted.. On neurologic examination, she had a stereotyped episode, which appeared to be nonphysiologic.. EEG was, though, notable for frequent R frontal epileptiform discharges.. Thyroid studies are wnl HCT is without acute intracranial pathology. P: Continue maintenance depakote; titrate PRN to goal level 50-100 Ativan iv prn prolonged seizure or cluster Other medical management and supportive care per primary Will follow clinically Consultation Date/Type/Reason Admit Date/Time Feb 17, 2019 at 15:21 Type of Consult Neurology Reason for Consultation tremors, generalized weakness Requesting Provider: CARLOS FLEMING MD Date/Time of Note DATE: 02/21/19 TIME: 14:40 24 HR Interval Summary Free Text/Dictation Continues acute care. No complaints of further tremors/seizure episodes. Pt states that she still feels generally weak. Exam Vital Signs Vitals Vital Signs Date Temp Pulse Resp B/P (MAP) Pulse Ox O2 O2 Flow FiO2 Time Delivery Rate 02/21/19 70 13:10 02/21/19 97.9 16 104/46 94 11:25 (65) 02/21/19 Room Air 09:55 02/19/19 2.0 20:00 Intake and Output 02/20/19 02/20/19 02/21/19 1515:00 23:00 07:00 IntakeIntake Total 950 ml 220 ml BalanceBalance 950 ml 220 ml Exam PE: Gen Appearance: No Apparent Distress HEENT: Normocephalic Cardiovascular: Regular rate Lungs: Clear bilaterally Abdomen: Soft Extremities: Dry NE: The patient was alert and oriented.. Language was normal. Fund of knowledge was normal. Pupils were equal and reactive to light. There was no afferent pupillary defect. Visual medley were normal. Funduscopic examination was limited. Extra-ocular movements were full. Ptosis was absent. There was no nystagmus. Facial sensation was normal. Face was symmetric with normal strength. Hearing was intact. Palate movements were normal. Neck strength was normal. There was normal tongue bulk and speed of movement. Tone was normal. Muscle bulk was normal. I did not see fasciculations. Arms and legs were weak, symmetrically. Vibration sensation was normal. Temperature and pinprick sensation was normal. Rapid alternating movements were normal. There was no dysmetria. There was no intention tremor. Gait was deferred due to bedrest. Arm and leg reflexes were 2+ and symmetric. Logan's sign was absent. Plantar responses were flexor. EMILIE DAWN NP Feb 21, 2019 14:43
--- NOTE | 2019-02-21 16:57 | PDOCDIS ---
Discharge Instructions DIAGNOSIS Discharge Diagnosis 1. Intermittent whole body jerking movement, not while asleep 2. Near syncope, no loss of consciousness 3. End-stage renal disease: HD on Wednesday, HD today. 4. Diabetes mellitus: A1c 8.4, on insulin, follow up with PCP 5. Hypertension, stable 6. Hyperlipidemia: on statin 7. Possible CAD: on statin, Plavix CONDITION [id number] Patient Condition: [id number] Stable HOME CARE INSTRUCTIONS: [id number] Diet Instructions: [id number] Low Fat /Cholesterol ACTIVITY: [id number] Activity Restrictions: Fixou1d Slowly Increase Activity Do not Drive FOLLOW UP/APPOINTMENTS Follow-up Plan PCP and nephrology in one week dialysis as before. CRIS ROBINS MD Feb 21, 2019 16:57
[2019-02-21] MEDS ORDERED: SENOKOTS PO (17:01)
[2019-02-21] MEDS ORDERED: AMLO-147 PO (17:01)
[2019-02-21] MEDS ORDERED: DIVA-16 PO (17:01)
[2019-02-21] MEDS ORDERED: POLY17PO6 PO (17:01)
[2019-02-21] MEDS ORDERED: DOXA2TAB61 PO (17:01)
[2019-02-21] MEDS ORDERED: OMEG100024 PO (17:01)
--- NOTE | 2019-02-21 17:08 | DS ---
Date/Time of Note Date/Time of Note DATE: 02/21/19 TIME: 17:04 Discharge Summary Admission/Discharge Info Admit Date/Time Feb 17, 2019 at 15:21 Discharge Date/Time Discharge Diagnosis 1. Intermittent whole body jerking movement, not while asleep 2. Near syncope, no loss of consciousness 3. End-stage renal disease: HD on Wednesday, HD today. 4. Diabetes mellitus: A1c 8.4, on insulin, follow up with PCP 5. Hypertension, stable 6. Hyperlipidemia: on statin 7. Possible CAD: on statin, Plavix Patient Condition: Stable Consults [facility] Procedures CAROTID ULTRASOUND IMPRESSION: No evidence for hemodynamically significant stenosis in the bilateral internal carotid arteries - validated velocity measurements with angiographic measurements, velocity criteria are extrapolated from diameter data as defined by the Society of Radiologists in Ultrasound Consensus Conference Radiology 2003; 229;340-346. This study does indirectly reference the measurement of the distal ICA diameter as the denominator for stenosis measurement. Normal antegrade flow in the vertebral arteries bilaterally. Mild to moderate calcific plaque in the right carotid bulb with a 55% stenosis. .Stanley Chamberlain MD, Da CAT scan of the brain No acute process Chest x-ray No acute process Hx of Present Illness 73-year-old female admitted with twitching altered mental status Hospital Course Hospitalist coverage/hospital course Evaluated managed for acute encephalopathy/ altered mental status. Suspected seizures. Seen by neurology, presently stable for for discharge on Depakote/ follow-up. Etiology undetermined. May consider follow-up with neurology. Assessment and plan 1. Altered mental status tremors suspected new onset seizures, stable continue medical management. 2. New-onset seizure disorder, follow-up with neurology 3. Type 2 diabetes 4. Metabolic syndrome 5. Chronic hypertension 6. Chronic dyslipidemia 7. Anemia stable 8. CAD on Plavix? 9. Bulb carotid plaque disease 55% 10. ESRD on dialysis 11. Failure to thrive 12. UTI? Will taper off antibiotics S: No further seizures. Awake alert but feels weak O: Vital signs stable sinus rhythm Physical exam No pallor droop adenopathy Regular no m/r/g Clear Benign No edema Neuro grossly nonfocal Home Meds Active Scripts [place]-3/Dha/Epa/Fish Oil (Fish Oil 1,000 mg Softgel) 1,000 Mg Capsule, 2000 MG PO BID for 14 Days, #30 CAP Prov:CRIS ROBINS MD 02/21/19 Sennosides/Docusate Sodium (Dok Plus Tablet) 1 Each Tablet, 2 TAB PO DAILY for 5 Days, #10 TAB 2 Refills Prov:CRIS ROBINS MD 02/21/19 Polyethylene Glycol* (Miralax*) 17 Gm Powd.pack, 17 GM PO BID for 7 Days otc Prov:CRIS ROBINS MD 02/21/19 Divalproex Sodium* (Divalproex Sodium*) 500 Mg Tablet.dr, 500 MG PO BID for 14 Days, #30 Prov:CRIS ROBINS MD 02/21/19 Doxazosin Mesylate* (Cardura*) 2 Mg Tablet, 2 MG PO HS for 14 Days, #15 TAB Prov:CRIS ROBINS MD 02/21/19 Amlodipine Besylate* (Amlodipine Besylate*) 10 Mg Tablet, 10 MG PO DAILY for 15 Days, #15 TAB Prov:CRIS ROBINS MD 02/21/19 Reported Medications Clonidine Hcl* (Clonidine Hcl*) 0.1 Mg Tab, 0.1 MG PO BID, TAB 02/15/19 Cholecalciferol (Vitamin D3) (Vitamin D-3) 2,000 Unit Tablet, 2000 UNIT PO DAILY, TAB 02/15/19 [place]-3 Acid Ethyl Esters (Lovaza) 1 Gm Capsule, 2 GM PO BID, CAP 02/15/19 Atorvastatin* (Atorvastatin*) 40 Mg Tablet, 40 MG PO QHS, #30 TAB 02/15/19 Valsartan* (Diovan*) 320 Mg Tablet, 320 MG PO DAILY, TAB 02/15/19 Clopidogrel Bisulfate* (Clopidogrel Bisulfate*) 75 Mg Tablet, 75 MG PO DAILY, #30 TAB 02/15/19 Amlodipine Besylate* (Amlodipine Besylate*) 10 Mg Tablet, 10 MG PO DAILY, #30 TAB 02/15/19 Allopurinol* (Allopurinol*) 300 Mg Tablet, 300 MG PO DAILY, TAB 02/15/19 Insulin Isophan/Regular (Humulin 70/30) 100 Units/Ml Susp, 1 UNIT SC AC BREAKFAST DINNER, EA 40 UNITS-AM, 20 UNITS-QHS 02/15/19 Discontinued Reported Medications Ondansetron Hcl* (Zofran*) 4 Mg Tab, 4 MG PO Q6H PRN for NAUSEA AND OR VOMITING, TAB 02/15/19 Pantoprazole* (Pantoprazole*) 40 Mg Tablet.dr, 40 MG PO AC BREAKFAST, TAB 05/14/18 Atorvastatin* (Atorvastatin*) 40 Mg Tablet, 40 MG PO QHS, #30 TAB 05/14/18 Clopidogrel Bisulfate* (Clopidogrel Bisulfate*) 75 Mg Tablet, 75 MG PO DAILY, #30 TAB 05/14/18 Allopurinol* (Allopurinol*) 300 Mg Tablet, 300 MG PO DAILY, TAB 05/14/18 Valsartan* (Diovan*) 320 Mg Tablet, 320 MG PO DAILY, TAB 05/14/18 Levofloxacin* (Levofloxacin*) 500 Mg Tablet, 500 MG PO DAILY, TAB FOR 10 DAYS, START DATE 05/12/18 05/14/18 [place]-3 Acid Ethyl Esters (Lovaza) 1 Gm Capsule, 2 GM PO BID, CAP 05/14/18 Cholecalciferol (Vitamin D3) (Vitamin D-3) 2,000 Unit Tablet, 2000 UNIT PO DAILY, TAB 05/14/18 Insulin Isophan/Regular (Humulin 70/30) 100 Units/Ml Susp, 40 UNIT SC AC BREAKFAST BEDTIME, EA 05/14/18 Ondansetron Hcl* (Zofran*) 4 Mg Tab, 4 MG PO Q12H PRN for NAUSEA AND OR VOMITING, TAB 05/14/18 Amlodipine Besylate* (Amlodipine Besylate*) 10 Mg Tablet, 10 MG PO DAILY, #30 TAB 05/14/18 Follow-up Plan PCP and nephrology in one week dialysis as before. Primary Care Provider Not On Staff Doctor Time spent on discharge: > 30 minutes Pending Labs Laboratory Tests Test 02/20/19 21:48 02/21/19 02:55 02/21/19 05:19 02/21/19 08:09 Bedside 252 184 133 Glucose mg/dL (70-220) mg/dL (70-220) mg/dL (70-220) White Blood 6.8 Count 10^3/ul (4.8-1 0.8) Red Blood 3.21 Count 10^6/ul (4.20- 5.40) Hemoglobin 9.3 g/dl (12.0-16. 0) Hematocrit 27.4 % (37.0-47.0) Mean 85.4 Corpuscular fl (82.0-101.0 Volume ) Mean 29.0 Corpuscular pg (29.0-33.0) Hemoglobin Mean 33.9 Corpuscular g/dl (32.0-37. Hemoglobin Conc 0) ent Red Cell 15.6 Distribution % (11.5-14.5) Width Platelet Count 230 10^3/UL (140-4 15) Mean Platelet 10.8 Volume fl (7.4-10.4) Immature 0.300 Granulocytes % % (0.001-0.429 ) Neutrophils % 63.5 % (39.0-77.0) Lymphocytes % 22.0 % (15.0-51.0) Monocytes % 8.8 % (0.0-11.0) Eosinophils % 5.0 % (0.0-7.0) Basophils % 0.4 % (0.0-2.0) Nucleated Red 0.0 Blood Cells % /100WBC (0.0-0 .0) Immature 0.020 Granulocytes # 10^3/ul (0.0-0 .031) Neutrophils # 4.3 10^3/ul (1.6-7 .5) Lymphocytes # 1.5 10^3/ul (0.8-2 .9) Monocytes # 0.6 10^3/ul (0.3-0 .9) Eosinophils # 0.3 10^3/ul (0.0-0 .5) Basophils # 0.0 10^3/ul (0.0-0 .1) Nucleated Red 0.0 Blood Cells # 10^3/ul (0.0-0 .0) Sodium Level 133 mmol/L (135-14 4) Potassium 3.8 Level mmol/L (3.5-5. 1) Chloride Level 97 mmol/L (97-110 ) Carbon Dioxide 22 Level mmol/L (21-31) Anion Gap 14 (5-13) Blood Urea 39 Nitrogen mg/dl (7-20) Creatinine 4.95 mg/dl (0.44-1. 00) Est Glomerular mL/min (>60) Filtrat Rate mL/min Glucose Level 136 mg/dl (70-220) Calcium Level 8.3 mg/dl (8.4-10. 2) Phosphorus 6.8 Level mg/dl (2.5-4.9 ) Magnesium 2.1 Level mg/dl (1.7-2.5 ) Total 0.1 Bilirubin mg/dl (0.2-1.3 ) Direct 0.00 Bilirubin mg/dl (0.00-0. 20) Indirect 0.1 Bilirubin mg/dl (0-1.1) Aspartate Amino 47 Transf (AST/SGO IU/L (15-46) T) Alanine 41 Aminotransferas IU/L (13-69) e (ALT/SGPT) Alkaline 81 Phosphatase IU/L (42-121) Total Protein 6.0 g/dl (6.1-8.1) Albumin 3.0 g/dl (3.3-4.9) Globulin 3.00 g/dl (1.3-3.2) Albumin/Globuli 1.00 n Ratio Valproic Acid 91 (Depakene) ug/ml (50-100) Level Test 02/21/19 12:10 Bedside 119 Glucose mg/dL (70-220) CRIS ROBINS MD Feb 21, 2019 17:08
== END 2019-02-21 20:43 | disposition home or self-care (01) | DRG 100 ==
LOC: E/R 15:29 → 6WM 20:29 → OBSVTOIN 02-17 15:21
PROVIDERS: ADMIT Family Medicine; ATTEND Internal Medicine
PROC: 5A1D70Z Performance of Urinary Filtration, Intermittent, Less than 6 Hours Per Day (ICD-10-PCS; principal; 2019-02-17)
DX: G40.909 Epilepsy, unspecified, not intractable, without status epilepticus (principal); N18.6 End stage renal disease; I12.0 Hypertensive chronic kidney disease with stage 5 chronic kidney disease or end stage renal disease; G93.40 Encephalopathy, unspecified; N39.0 Urinary tract infection, site not specified; R55 Syncope and collapse; E11.22 Type 2 diabetes mellitus with diabetic chronic kidney disease; Z99.2 Dependence on renal dialysis; Z90.710 Acquired absence of both cervix and uterus; E78.5 Hyperlipidemia, unspecified; I25.10 Atherosclerotic heart disease of native coronary artery without angina pectoris; E03.9 Hypothyroidism, unspecified; E88.81 Metabolic syndrome and other insulin resistance; D64.9 Anemia, unspecified; M81.0 Age-related osteoporosis without current pathological fracture
CPT/HCPCS: 36415; 70450; 71045; 76705; 80048; 80053; 80076; 80164; 80202; 82140; 82962; 83036; 83605; 83735; 84100; 84439; 84443; 84484; 85025; 85610; 87081; 87340; 90935; 92526; 92610; 93005; 93306; 93880; 95819; 97116; 97162; 97530; G0378; J0360; J0744; J1644; J1815; J2405; J2543; J3370; J7040

== ENCOUNTER 2019-04-29 12:48 | Emergency (ER) | payer BC, OTHER ==
[~2019-04-29] VITALS: Ht 147.3 cm; Wt 50.0 kg
[~2019-04-29 12:48] MED LIST changes: +CLON-379 PO; +DIVA-16 PO; +DOXA2TAB61 PO; -LEVO500T10 PO; +OMEG100024 PO; -ONDA4TAB13 PO; -PANT40TA4 PO; +POLY17PO6 PO; +SENOKOTS PO
[2019-04-29 12:52] VITALS: Ht 147.3 cm; Wt 50.0 kg
--- NOTE | 2019-04-29 14:10 | ERD ---
ER Documentation Chief Complaint Chief Complaint weakness and head pain x yesterday fell out of bed HPI 73-year-old female history of diabetes, hypertension, hyperlipidemia, coronary artery disease and end-stage renal disease on dialysis Wednesday//Wednesday presents to the ED for evaluation of a fall that occurred last night. Patient states she got up to go to the bathroom and fell but was able to get up and went to her normal dialysis today. She was supposed to see her primary care physician Dr. Meraz but came to the ED instead for evaluation. She is complaining of mild, occipital headache but denies neck or back pain. Complains of increasing, generalized weakness and difficulty ambulating over the last sev eral weeks. No chest pain, palpitations or shortness of breath. No abdominal pain, nausea vomiting. No fevers or chills. ROS All systems reviewed and are negative except as per history of present illness. Medications Home Meds Reported Medications Sevelamer Carbonate* (Renvela*) 800 Mg Tablet, 0.8 GM PO WITH MEALS, TAB 04/29/19 Mirtazapine* (Mirtazapine*) 15 Mg Tablet, 15 MG PO HS, TAB 04/29/19 Losartan Potassium* (Losartan Potassium*) 100 Mg Tablet, 100 MG PO DAILY, TAB 04/29/19 Pantoprazole* (Pantoprazole*) 40 Mg Tablet.dr, 40 MG PO AC BREAKFAST, TAB 04/29/19 Doxazosin Mesylate* (Doxazosin Mesylate*) 2 Mg Tablet, 2 MG PO HS, TAB 04/29/19 Divalproex Sodium* (Depakote ER*) 500 Mg Tabsr, 500 MG PO BID, #30 TAB.SA 04/29/19 Clonidine Hcl* (Clonidine Hcl*) 0.1 Mg Tab, 0.1 MG PO BID, TAB 02/15/19 Cholecalciferol (Vitamin D3) (Vitamin D-3) 2,000 Unit Tablet, 2000 UNIT PO DAILY, TAB 02/15/19 Atorvastatin* (Atorvastatin*) 40 Mg Tablet, 40 MG PO QHS, #30 TAB 02/15/19 Clopidogrel Bisulfate* (Clopidogrel Bisulfate*) 75 Mg Tablet, 75 MG PO DAILY, #3 0 TAB 02/15/19 Amlodipine Besylate* (Amlodipine Besylate*) 10 Mg Tablet, 10 MG PO DAILY, #30 TAB 02/15/19 Allopurinol* (Allopurinol*) 300 Mg Tablet, 300 MG PO DAILY, TAB 02/15/19 Insulin Isophan/Regular (Humulin 70/30) 100 Units/Ml Susp, 1 UNIT SC AC BREAKFAST DINNER, EA 40 UNITS-AM, 20 UNITS-QHS 02/15/19 Discontinued Reported Medications [place]-3 Acid Ethyl Esters (Lovaza) 1 Gm Capsule, 2 GM PO BID, CAP 02/15/19 Valsartan* (Diovan*) 320 Mg Tablet, 320 MG PO DAILY, TAB 02/15/19 Discontinued Scripts [place]-3/Dha/Epa/Fish Oil (Fish Oil 1,000 mg Softgel) 1,000 Mg Capsule, 2000 MG PO BID for 14 Days, #30 CAP Prov:CRIS ROBINS MD 02/21/19 Sennosides/Docusate Sodium (Dok Plus Tablet) 1 Each Tablet, 2 TAB PO DAILY for 5 Days, #10 TAB 2 Refills Prov:CRIS ROBINS MD 02/21/19 Polyethylene Glycol* (Miralax*) 17 Gm Powd.pack, 17 GM PO BID for 7 Days otc Prov:CRIS ROBINS MD 02/21/19 Divalproex Sodium* (Divalproex Sodium*) 500 Mg Tablet.dr, 500 MG PO BID for 14 Days, #30 Prov:CRIS ROBINS MD 02/21/19 Doxazosin Mesylate* (Cardura*) 2 Mg Tablet, 2 MG PO HS for 14 Days, #15 TAB Prov:CRIS ROBINS MD 02/21/19 Amlodipine Besylate* (Amlodipine Besylate*) 10 Mg Tablet, 10 MG PO DAILY for 15 Days, #15 TAB Prov:CRIS ROBINS MD 02/21/19 Allergies Allergies: Coded Allergies: Penicillins (Unverified Allergy, Unknown, 04/29/19) aspirin (Unverified Allergy, Unknown, 04/29/19) PMhx/Soc History of Surgery: Yes (TOTAL HYSTERECTOMY, C SECTION X2, HERNIA REPAIR, EYE SX) Anesthesia Reaction: No Hx Neurological Disorder: No Hx Respiratory Disorders: No Hx Cardiac Disorders: Yes (HTN, HIGH CHOLESTEROL) Hx Psychiatric Problems: Yes (DEPRESSION) Hx Miscellaneous Medical Probl: No Hx Alcohol Use: No Hx Substance Use: No Hx Tobacco Use: No FmHx No family history relevant to presenting complaint Physical Exam Vitals Vital Signs Date Temp Pulse Resp B/P (MAP) Pulse Ox O2 O2 Flow FiO2 Time Delivery Rate 04/29/19 98.9 81 16 214/71 98 Room Air 16:33 (118) 04/29/19 98.9 84 18 212/81 96 12:52 (124) Physical Exam Const: Alert, anxious in no acute distress. Head: Atraumatic. Tender occipital area but no swelling or ecchymoses. Eyes: Pupils equal react to light, extraocular movements are intact. Normal Conjunctiva. No periorbital ecchymosis or subconjunctival hemorrhage. ENT: Normal External Ears, Nose and Mouth. No hemotympanum, negative martinez sign. Neck: Full range of motion. No midline bony tenderness or paraspinal muscle spasm. Full range of motion. No meningismus. Resp: Clear to auscultation bilaterally Cardio: Regular rate and rhythm, no murmurs Abd: Soft, non tender, non distended. Normal bowel sounds Skin: No petechiae or rashes Back: No midline or flank tenderness Ext: No cyanosis, or edema. No bony tenderness. Full range of motion. Neur: Awake and alert. Cranials 2 through 12 are grossly intact. Motor and sensory equal bilaterally. No focal deficit. Psych: Anxious but not depressed. Result Diagram: 04/29/19 1426 04/29/19 1426 Results 24 hrs Laboratory Tests Test 04/29/19 14:26 White Blood Count 10.6 10^3/ul Red Blood Count 4.46 10^6/ul Hemoglobin 13.2 g/dl Hematocrit 39.6 % Mean Corpuscular Volume 88.8 fl Mean Corpuscular Hemoglobin 29.6 pg Mean Corpuscular Hemoglobin Concent 33.3 g/dl Red Cell Distribution Width 15.9 % Platelet Count 206 10^3/UL Mean Platelet Volume 9.9 fl Immature Granulocytes % 0.400 % Neutrophils % 74.8 % Lymphocytes % 15.1 % Monocytes % 8.0 % Eosinophils % 1.0 % Basophils % 0.7 % Nucleated Red Blood Cells % 0.0 /100WBC Immature Granulocytes # 0.040 10^3/ul Neutrophils # 8.0 10^3/ul Lymphocytes # 1.6 10^3/ul Monocytes # 0.9 10^3/ul Eosinophils # 0.1 10^3/ul Basophils # 0.1 10^3/ul Nucleated Red Blood Cells # 0.0 10^3/ul Sodium Level 136 mmol/L Potassium Level 3.8 mmol/L Chloride Level 96 mmol/L Carbon Dioxide Level 34 mmol/L Anion Gap 6 Blood Urea Nitrogen 27 mg/dl Creatinine 2.88 mg/dl Est Glomerular Filtrat Rate mL/min mL/min Glucose Level 266 mg/dl Calcium Level 8.6 mg/dl Valproic Acid (Depakene) Level 49 ug/ml Procedures/MDM DOCUMENTS REVIEWED: ED nurse, prior ED, prior records. Patient was admitted in January for shaking and possible new onset seizure started on Depakote. EKG: Time: 1416. Sinus rhythm. Ventricular rate 70. Normal MD QRS. No acute ST elevation or depression. Q waves V1 through V3. No ectopy. My Interpretation IMAGING: PROCEDURE: CT Brain without contrast. CLINICAL INDICATION: Headaches. Pain. S/P fall. TECHNIQUE: A CT of the brain was performed on a multidetector CT scanner utilizing axial sections from the skull base through the vertex without contrast. Images were reviewed on a high-resolution PACS workstation. DICOM images are available. CTDI = 39.54 mGy and the DLP = 634.23 mGy-cm. One or more of the following dose reduction techniques were used: - Automated exposure control. - Adjustment of the mA and/or kV according to patient size. Use of iterative reconstruction technique. COMPARISON: CT BRAIN 02/17/2019 FINDINGS: Severe diffuse cerebral and cerebellar atrophy is present. There is proportionate dilatation of the ventricular system and sulci in a symmetric fashion. There is prominence of the extraaxial spaces secondary to atrophy. There is no evidence of intracranial hemorrhage, mass effect or midline shift. No abnormal intra-axial or extra-axial fluid collections are seen. The density of the brain is normal and the guerra/white matter differentiation is well preserved. Severe patchy diffuse deep white matter microangiopathic ischemic change is seen. There are old lacunar infarcts in the basal ganglia. The osseous structures and visualized paranasal sinuses are unremarkable. Vascular calcifications are identified. IMPRESSION: 1. Severe diffuse atrophy. 2. Severe microangiopathic ischemic change. 3. Vascular calcifications. 4. No acute intracranial process. 5. Stable appearances over time. RPTAT: HMJB .Toro Castorena MD, MD Date Time Electronically viewed and signed by .Toro Castorena MD, MD on 04/29/2019 14:59 .B/ [employer]ISION MAKIN-year-old female history of diabetes, hypertension, hyperlipidemia, coronary artery disease and end-stage renal disease on dialysis Wednesday//Wednesday presents to the ED for evaluation of a fall that occurred last night. CBC to evaluate for leukocytosis and anemia is unremarkable. Chemistry reveals elevated BUN/creatinine consistent with prior results and hyperglycemia but no anion gap acidosis or significant electrolyte abnormalities. CT of the brain performed to evaluate for hemorrhage, infarct and mass reveals atrophy but is otherwise unremarkable. Cervical spine cleared clinically. EKG is negative for ischemia or dysrhythmia. Patient presents after a fall at home which she sustained a closed head injury without loss of consciousness. No focal deficit or history consistent with CVA or TIA. No bony pain or indication for imaging. End-stage renal just came from dialysis and there is no hyperkalemia or signs of volume overload. EKG is negative for dysrhythmia or ischemia. Patient had no syncope or seizure. Abdominal exam is completely benign without tenderness, rebound, guarding, signs of peritonitis or an occult intra-abdominal process including but not limited to mesenteric ischemia and abdominal aortic aneurysm hence CT scan is deferred. Patient had a fall at home but did not sustain any serious injury. Stable for discharge with precautionary instructions and outpatient follow-up as counseled. Counseled patient and family regarding diagnostic workup, diagnosis and need for followup. Understands to return to ED if symptoms recur, worsen or any other concerns. Departure Diagnosis: Primary Impression: Fall at home Encounter type: initial encounter Qualified Codes: W19.XXXA - Unspecified fall, initial encounter; Y92.009 - Unspecified place in unspecified non- institutional (private) residence as the place of occurrence of the external cause Additional Impressions: Head injury, acute, with loss of consciousness Encounter type: initial encounter Qualified Codes: S06.9X9A - Unspecified intracranial injury with loss of consciousness of unspecified duration, initial encounter ESRD (end stage renal disease) on dialysis Hyperglycemia due to type 2 diabetes mellitus Diabetes mellitus half-way insulin use: without half-way use Qualified Codes: E11.65 - Type 2 diabetes mellitus with hyperglycemia Condition: RAMILA Rodriges MD Apr 29, 2019 14:10
[2019-04-29] MEDS ORDERED: DIVA-75 PO (15:19)
[2019-04-29] MEDS ORDERED: DOXA2TAB PO (15:20)
[2019-04-29] MEDS ORDERED: MIRT15TA5 PO (15:21)
[2019-04-29] MEDS ORDERED: LOSA100T15 PO (15:21)
[2019-04-29] MEDS ORDERED: PANT40TA4 PO (15:21)
[2019-04-29] MEDS ORDERED: SEVE800T7 PO (15:23)
[2019-04-29 16:33] VITALS: BP 214/71; PULSE 81; RESP 16
== END 2019-04-29 16:40 | disposition home or self-care (01) ==
LOC: E/R 12:48
DX: S06.9X9A Unspecified intracranial injury with loss of consciousness of unspecified duration, initial encounter (principal); E11.65 Type 2 diabetes mellitus with hyperglycemia; E11.22 Type 2 diabetes mellitus with diabetic chronic kidney disease; N18.6 End stage renal disease; I12.0 Hypertensive chronic kidney disease with stage 5 chronic kidney disease or end stage renal disease; I25.10 Atherosclerotic heart disease of native coronary artery without angina pectoris; R51 Headache; W06.XXXA Fall from bed, initial encounter; Y92.009 Unspecified place in unspecified non-institutional (private) residence as the place of occurrence of the external cause; Z99.2 Dependence on renal dialysis; Z79.4 Long term (current) use of insulin; Z79.01 Long term (current) use of anticoagulants
CPT/HCPCS: 70450; 80048; 80164; 85025; 93005